=== PATIENT | female | born 1970 | race Hispanic/Latino ===

== ENCOUNTER 2019-09-13 10:45 | Inpatient (IN) | payer OTHER ==
[2019-09-13] MEDS ORDERED: ASPIRIN 325 MG TAB ONE (11:18)
[2019-09-13] MEDS ORDERED: ASPIRIN 81 MG TAB CHEW PO ONE (11:18)
--- NOTE | 2019-09-13 11:25 | Emergency Department Report ---
ED Chest Pain HPI - General Chief Complaint: Dyspnea/Respdistress Stated Complaint: SOB Time Seen by Provider: 09/13/19 11:18 Source: patient Mode of arrival: Ambulatory Limitations: No Limitations - History of Present Illness Initial Comments: Patient is 49 years old female with history of coronary artery disease, 9 stents before. Patient presented to the ER complaining of left-sided chest pain for the last 5 days. Patient described her chest pain as heaviness, recurrent, continue for 15 to 20 minutes and resolved. Patient stated the pain radiated to her left upper extremity. Patient stated that is typical when she had her previous heart attack. Patient also noticed significant shortness of breath for the last week. Patient stated that she is unable to lay flat. Patient denied any lower extremity swelling. Patient also denied any fever, chills, runny nose or cough. MD Complaint: chest pain -: days(s) (5) Onset: during rest, during exertion Pain Location: substernal, left chest Pain Radiation: LUE Severity: moderate Severity scale (0 -10): 5 Quality: heaviness - Related Data Home Medications Medication Instructions Recorded Confirmed Last Taken Aspirin 325 mg PO QDAY 09/13/19 09/13/19 09/13/19 Allergies Allergy/AdvReac Type Severity Reaction Status Date / Time No Known Allergies Allergy Verified 09/13/19 10:54 Heart Score - HEART Score History: Highly suspicious EKG: Significant ST-depression Age: 45-65 Risk factors: > 3 risk factors or hx of atherosclerotic disease Troponin: > 3x normal limit HEART Score: 9 ED Review of Systems ROS: Stated complaint: SOB Other details as noted in HPI Comment: All other systems reviewed and negative Constitutional: denies: chills, fever Respiratory: orthopnea, shortness of breath, SOB with exertion, SOB at rest. denies: cough, wheezing Cardiovascular: chest pain Gastrointestinal: denies: abdominal pain, nausea, vomiting, diarrhea, constipation, hematemesis, melena Musculoskeletal: denies: back pain Neurological: denies: headache, weakness, numbness, paresthesias, confusion, abnormal gait ED Past Medical Hx - Medications Home Medications: Home Medications Medication Instructions Recorded Confirmed Last Taken Type Aspirin 325 mg PO QDAY 09/13/19 09/13/19 09/13/19 History ED Physical Exam - General Limitations: No Limitations General appearance: alert, in no apparent distress - Head Head exam: Present: atraumatic, normocephalic, normal inspection - Eye Eye exam: Present: normal appearance, PERRL - ENT ENT exam: Present: normal exam, normal orophraynx, mucous membranes moist - Neck Neck exam: Present: normal inspection, full ROM. Absent: tenderness, meningis mus - Respiratory Respiratory exam: Present: normal lung sounds bilaterally - Cardiovascular Cardiovascular Exam: Present: regular rate, normal rhythm, normal heart sounds - GI/Abdominal GI/Abdominal exam: Present: soft, normal bowel sounds. Absent: distended, tenderness, guarding, rebound, rigid, organomegaly, mass, bruit, pulsatile mass, hernia - Extremities Exam Extremities exam: Present: normal inspection, full ROM, normal capillary refill. Absent: pedal edema, calf tenderness - Back Exam Back exam: Present: normal inspection, full ROM. Absent: CVA tenderness (R), CVA tenderness (L) - Neurological Exam Neurological exam: Present: alert, oriented X3, CN II-XII intact, normal gait, reflexes normal. Absent: motor sensory deficit - Psychiatric Psychiatric exam: Present: normal mood - Skin Skin exam: Present: warm, intact, normal color ED Course Vital Signs 09/13/19 09/13/19 09/13/19 10:57 11:19 11:30 Temperature 98.1 F Pulse Rate 97 H 101 H Respiratory 16 25 H 17 Rate Blood Pressure Blood Pressure 156/77 [Left] O2 Sat by Pulse 98 97 Oximetry 09/13/19 09/13/19 11:46 12:00 Temperature Pulse Rate 90 90 Respiratory 25 H 27 H Rate Blood Pressure 146/68 131/63 Blood Pressure [Left] O2 Sat by Pulse 95 93 Oximetry HEATHER score - Heather Score Age > 65: (0) No Aspirin use within the Past 7 Days: (1) Yes 3 or more CAD Risk Factors: (1) Yes 2 or more Angina events in past 24 hrs: (1) Yes Known CAD with more than 50% Stenosis: (1) Yes Elevated Cardiac Markers: (1) Yes ST Deviation Greater than 0.5mm: (1) Yes HEATHER Score: 6 ED Medical Decision Making - Lab Data Result diagrams: 09/13/19 11:40 09/13/19 11:40 - EKG Data -: EKG Interpreted by [facility] EKG shows normal: sinus rhythm Rate: normal - EKG Data Interpretation: nonspecific ST-T wave remi 09/13/19 11:[address] Lucas, he called back and stated that patient does not meet STEMI criteria. - Radiology Data Radiology results: report reviewed - Medical Decision Making Patient is 49 years old female with history of coronary artery disease, 9 stents before. Patient presented to the ER complaining of left-sided chest pain for the last 5 days. Patient described her chest pain as heaviness, recurrent, continue for 15 to 20 minutes and resolved. Patient stated the pain radiated to her left upper extremity. Patient stated that is typical when she had her previous heart attack. Patient also noticed significant shortness of breath for the last week. Patient stated that she is unable to lay flat. Patient denied any lower extremity swelling. Patient also denied any fever, chills, runny nose or cough. EKG showed significant ST depression in several leads. EKG sent to Dr. Lucas, street light wirer. He stated that patient does not need STEMI criteria and he advised patient to be admitted as acute coronary syndrome and to start heparin for further management. Critical Care Time: Yes Critical care time in (mins) excluding proc time.: 30 Critical care attestation.: If time is entered above; I have spent that time in minutes in the direct care of this critically ill patient, excluding procedure time. ED Disposition Clinical Impression: Chest pain, New onset of congestive heart failure, Non-STEMI (non-ST elevated myocardial infarction) Disposition: OP ADMIT IP TO THIS HOSP Is pt being admited?: Yes Condition: Stable Instructions: Angina (ED), Chest Pain (ED) Referrals: PRIMARY CARE,MD [Primary Care Provider] - 3-5 Days
[2019-09-13 11:51] LABS: Basophils % (Auto) 0.4 % (0.0-1.8); Eosinophils # (Auto) 0.1 K/mm3 (0.0-0.4); Eosinophils % (Auto) 0.7 % (0.0-4.3); Hematocrit 33.4 % (30.3-42.9); Hemoglobin 11.2 gm/dl (10.1-14.3); Lymphocytes # (Auto) 1.1 K/mm3 (1.2-5.4); Lymphocytes % (Auto) 15.1 % (13.4-35.0); Mean Corpuscular HGB Conc 33 % (30-34); Mean Corpuscular Volume 89 fl (79-97); Monocytes # (Auto) 0.4 K/mm3 (0.0-0.8); Monocytes % (Auto) 6.3 % (0.0-7.3); Platelet Count 373 K/mm3 (140-440); Red Blood Count 3.77 M/mm3 (3.65-5.03); Red Cell Distribution Width 15.6 % (13.2-15.2)
--- NOTE | 2019-09-13 11:51 | XRay Report ---
CHEST 1 VIEW INDICATION: Chest Pain. COMPARISON: None FINDINGS: Support devices: None. Heart: Within normal limits. Lungs/Pleura: Mild pulmonary venous congestion and trace pleural effusions are suspected. No evidence for pneumonia or pneumothorax. Additional findings: None. IMPRESSION: Mild pulmonary venous congestion and trace bilateral pleural effusions. Signer Name: Oziel Arciniega Jr, MD Signed: 09/13/2019 11:46 AM Workstation Name: [id number]
[2019-09-13] MEDS ORDERED: HEPARIN/ 0.45% NACL DRIP 25,000 UNIT/500 ML BAG IV SCH (12:00)
--- NOTE | 2019-09-13 12:36 | History and Physical Report ---
History of Present Illness Chief complaint: My chest hurts History of present illness: 49 YO Female with Obesity, HTN, NM, CAD S/P Stent Placement x9 presents to ED for evaluation. Patient states that she has experienced pain in her chest over the past 5 days with intermittently worsening symptoms over the same timeframe. Patient states that the pain episodes have become more frequent and more severe. Patient states that initially the symptoms were present for 1 to 3 minutes then resolved but over the ensuing 5 days the patient symptoms have worsened. Patient states that pain symptoms are currently 57/10, intermittent, lasting for 15 to 20 minutes, radiates to the left arm, crushing in nature, associated with shortness of breath, worsened with exertion, relieved minimally with rest. Patient acknowledges orthopnea/PND, decreased exercise tolerance. Patient transported to [facility] via private vehicle for further evaluation and care. Patient seen and evaluated in the emergency department. Lab and imaging strip studies reviewed. Pain was found to have elevated troponin and clinical symptoms consistent with non-ST elevation NM, stable angina, as well as symptoms consistent with exacerbation of congestive heart failure. Cardiology team consulted in ED. Patient admitted to telemetry and initiated on therapeutic anticoagulation. Patient is pending cardiac cath in a.m. as per cardiology team. No prior admission for review. No medication listed at time of admission for reconciliation. Patient denies fever, chills, productive cough, skin rash, rhinorrhea, sore throat, or recent ill contacts. Past History Past Medical History: acute NM, CAD, hypertension Past Surgical History: Other (Cardiac stent placement) Social history: , lives with family. denies: smoking, alcohol abuse, prescription drug abuse Family history: CAD, hypertension Medications and Allergies Allergies Allergy/AdvReac Type Severity Reaction Status Date / Time No Known Allergies Allergy Verified 09/13/19 10:54 Home Medications Medication Instructions Recorded Confirmed Last Taken Type Aspirin 325 mg PO QDAY 09/13/19 09/13/19 09/13/19 History Active Meds: Active Medications Heparin Sodium/Sodium Chloride (Heparin/ 0.45% Nacl-25,000 Unit/500 Ml) 25,000 unit in 500 mls @ 20 mls/hr IV TITRATE LUIS EDUARDO; Protocol Review of Systems Constitutional: no weight loss, no weight gain, no fever, no chills, no weakness, no malaise Ears, nose, mouth and throat: no ear pain, no ear discharge, no tinnitis, no decreased hearing, no nose pain Cardiovascular: chest pain, orthopnea, shortness of breath, dyspnea on exertion, decreased exercise tolerance, no palpitations, no rapid/irregular heart beat Respiratory: no cough, no cough with sputum, no excessive sputum, no hemoptysis, no shortness of breath Gastrointestinal: no nausea, no vomiting, no diarrhea, no constipation Genitourinary Female: no pelvic pain, no flank pain, no menorrhagia, no dysuria, no urinary frequency, no urgency Rectal: no pain, no incontinence, no bleeding Musculoskeletal: no neck stiffness, no neck pain, no shooting arm pain, no arm numbness/tingling, no low back pain Integumentary: no rash, no pruritis, no redness, no sores, no wounds Neurological: no transient paralysis, no paralysis, no weakness, no parathesias, no numbness, no tingling, no seizures Psychiatric: no change in sleep habits, no sleep disturbances, no insomnia, no hypersomnia, no change in appetite, no change in libido Endocrine: no cold intolerance, no heat intolerance, no polyphagia, no excessive thirst, no polydipsia Hematologic/Lymphatic: no easy bruising, no easy bleeding, no lymphadenopathy, no lymphedema Allergic/Immunologic: no urticaria, no allergic rhinitis, no wheezing, no persistent infections, no anaphylaxis Exam - Constitutional Vitals: Temp Pulse Resp BP Pulse Ox 98.1 F 90 27 H 131/63 93 09/13/19 10:57 09/13/19 12:00 09/13/19 12:00 09/13/19 12:00 09/13/19 12:00 General appearance: Present: mild distress, obese - EENT Eyes: Present: PERRL ENT: hearing intact, clear oral mucosa - Neck Neck: Present: supple, normal ROM - Respiratory Respiratory effort: normal Respiratory: bilateral: CTA - Cardiovascular Heart Sounds: Present: S1 & S2. Absent: rub, click - Extremities Extremities: pulses symmetrical Extremity abnormal: edema Peripheral Pulses: within normal limits - Abdominal General gastrointestinal: Present: soft, non-tender, non-distended, normal bowel sounds Female genitourinary: Present: normal - Integumentary Integumentary: Present: clear, warm, dry - Musculoskeletal Musculoskeletal: gait normal, strength equal bilaterally - Psychiatric Psychiatric: appropriate mood/affect, intact judgment & insight - Neurologic Neurologic: CNII-XII intact, moves all extremities Results - Labs CBC & Chem 7: 09/13/19 11:40 09/13/19 11:40 Labs: Abnormal lab results 09/13/19 Range/Units 11:40 RDW 15.6 H (13.2-15.2) % Lymph # 1.1 L (1.2-5.4) K/mm3 Seg Neutrophils % 77.5 H (40.0-70.0) % Assessment and Plan - Patient Problems (1) Non-STEMI (non-ST elevated myocardial infarction) Current Visit: Yes Status: Acute Plan to address problem: Type II non-ST elevation NM: Therapeutic anticoagulation, serial cardiac enzymes, EKG, admit to telemetry floor, cardiology consult placed in ED, pending cardiac cath in a.m. as per cardiology team. (2) CHF (congestive heart failure) Current Visit: Yes Status: Acute Qualifiers: Heart failure type: systolic Heart failure chronicity: acute Qualified Code(s): I50.21 - Acute systolic (congestive) heart failure Plan to address problem: Admit to telemetry, strict I/O, monitor urine output every shift, daily weight, diuresis, afterload reduction, submental oxygen, pulse oximetry, thyroid panel, BNP, chest x-ray, magnesium level. (3) HTN (hypertension) Current Visit: Yes Status: Acute Qualifiers: Hypertension type: essential hypertension Qualified Code(s): I10 - Essential (primary) hypertension Plan to address problem: Monitor blood pressure every shift, continue medical management (4) CAD (coronary artery disease) Current Visit: Yes Status: Acute Qualifiers: Associated angina: with stable angina Plan to address problem: Lipid panel, statin therapy, risk factor reduction therapy, balanced diet, low-fat/low-cholesterol diet, increase physical activity at discharge. (5) Obesity (BMI 30.0-34.9) Current Visit: Yes Status: Acute Plan to address problem: Balanced diet, increase physical activity at discharge. (6) DVT prophylaxis Current Visit: Yes Status: Acute Plan to address problem: SCD to bilateral lower extremities while in bed, continue therapeutic anticoagulation
[2019-09-13] MEDS ORDERED: ACETAMINOPHEN 325 MG TAB PO PRN (12:37)
[2019-09-13] MEDS ORDERED: ONDANSETRON 4 MG/2 ML INJ IV PRN (12:37)
[2019-09-13] MEDS ORDERED: NITROGLYCERIN 0.4 MG TAB SUBL SL PRN (12:37)
[2019-09-13 12:38] LABS: INR 1.06 (0.87-1.13)
[2019-09-13 12:39] LABS: Partial Thromboplastin Time 32.6 Sec. (24.2-36.6)
[2019-09-13 12:55] LABS: BUN/Creatinine Ratio 17; Blood Urea Nitrogen 10 mg/dL (7-17); Calcium 9.4 mg/dL (8.4-10.2); Hemolysis Index 101
[2019-09-13 12:58] LABS: Albumin 4.4 g/dL (3.9-5); Bilirubin,Direct 0.3 mg/dL (0-0.2)
[2019-09-13 13:17] LABS: Alanine Aminotransferase < 5 units/L (7-56)
[2019-09-13 14:23] LABS: Chol/HDL Ratio 8.63 %
[2019-09-13 14:31] LABS: Free T4 (Free Thyroxine) 1.14 ng/dL (0.76-1.46)
--- NOTE | 2019-09-13 17:20 | Consultation ---
History of Present Illness Consult date: 09/13/19 Consult reason: chest pain History of present illness: The patient is a 49-year-old woman with a history of multivessel coronary artery disease. She has stents in the proximal to mid LAD, mid circumflex, proximal and distal right coronary arteries. Her last interventional procedure was a plain old balloon angioplasty of the circumflex in 2014. At the time of this procedure her left ventricular ejection fraction was well-preserved at 60%. For the past 2 years, the patient stopped follow-up with her resp therapist, and stopped taking her medications. She states that it was because she lost her health insurance. In addition, she has continued to smoke cigarettes. Other comorbidities include chronic hypertension. She presents to the emergency room at this time with chest pain. Chest pain has been intermittent for several days, and reminiscent of her prior angina. EKG in the emergency room was sinus rhythm with ST depression in the lateral leads, suggestive of lateral ischemia. She was placed on intravenous heparin, and admitted to the hospital on suspicion of a non-ST elevation myocardial infarction. She is currently on the telemetry unit, and is chest pain-free on IV heparin. Past History Past Medical History: acute [place], CAD, COPD, hypertension Past Surgical History: PTCA, Other (Cardiac stent placement) Social history: , lives with family, smoking. denies: alcohol abuse, prescription drug abuse Family history: CAD, hypertension Medications and Allergies Allergies Allergy/AdvReac Type Severity Reaction Status Date / Time No Known Allergies Allergy Verified 09/13/19 10:54 Home Medications Medication Instructions Recorded Confirmed Last Taken Type Aspirin 325 mg PO QDAY 09/13/19 09/13/19 09/13/19 History Active Meds: Active Medications Acetaminophen (Tylenol) 650 mg PO Q4H PRN PRN Reason: Pain MILD(1-3)/Fever >100.5/SOL Aspirin (Aspirin) 325 mg PO QDAY [facility] Heparin Sodium/Sodium Chloride (Heparin/ 0.45% Nacl-25,000 Unit/500 Ml) 25,000 unit in 500 mls @ 20 mls/hr IV TITRATE LUIS EDUARDO; Protocol Last Admin: 09/13/19 12:42 Dose: 1,000 units/hr, 20 mls/hr Documented by: Nitroglycerin (Nitrostat) 0.4 mg SL Q5M PRN PRN Reason: Chest Pain Ondansetron HCl (Zofran) 4 mg IV Q8H PRN PRN Reason: Nausea And Vomiting Sodium Chloride (Sodium Chloride Flush Syringe 10 Ml) 10 ml IV BID LUIS EDUARDO Sodium Chloride (Sodium Chloride Flush Syringe 10 Ml) 10 ml IV PRN PRN PRN Reason: LINE FLUSH Sodium Chloride (Sodium Chloride Flush Syringe 10 Ml) 10 ml IV PRN PRN PRN Reason: LINE FLUSH Review of Systems Cardiovascular: chest pain, shortness of breath, no orthopnea, no palpitations, no rapid/irregular heart beat, no edema, no syncope, no lightheadedness Physical Examination Vital Signs Temp Pulse Resp BP Pulse Ox 98.1 F 97 H 16 156/77 98 09/13/19 10:57 09/13/19 10:57 09/13/19 10:57 09/13/19 10:57 09/13/19 10:57 General appearance: no acute distress HEENT: Positive: PERRL Neck: Positive: neck supple Cardiac: Positive: Reg Rate and Rhythm Lungs: Positive: Decreased Breath Sounds Neuro: Positive: Grossly Intact Abdomen: Positive: Soft Female genitourinary: deferred Skin: Positive: Clear Extremities: Absent: edema Results 09/13/19 11:40 09/13/19 11:40 Cardiac Enzymes 09/13/19 Range/Units 11:40 AST 138 H (5-40) units/L Coagulation 09/13/19 Range/Units 12:11 PT 13.9 (12.2-14.9) Sec. INR 1.06 (0.87-1.13) APTT 32.6 (24.2-36.6) Sec. Lipids 09/13/19 Range/Units 13:13 Triglycerides 111 (2-149) mg/dL Cholesterol 285 H (50-199) mg/dL HDL Cholesterol 33 L (40-59) mg/dL Cholesterol/HDL Ratio 8.63 % CBC 09/13/19 Range/Units 11:40 WBC 7.2 (4.5-11.0) K/mm3 RBC 3.77 (3.65-5.03) M/mm3 Hgb 11.2 (10.1-14.3) gm/dl Hct 33.4 (30.3-42.9) % Plt Count 373 (140-440) K/mm3 Lymph # 1.1 L (1.2-5.4) K/mm3 [place] # 0.4 (0.0-0.8) K/mm3 Eos # 0.1 (0.0-0.4) K/mm3 Baso # 0.0 (0.0-0.1) K/mm3 Comprehensive Metabolic Panel 09/13/19 09/13/19 Range/Units 11:40 11:40 Sodium 141 (137-145) mmol/L Potassium 4.7 (3.6-5.0) mmol/L Chloride 105.0 (98-107) mmol/L Carbon Dioxide 16 L (22-30) mmol/L BUN 10 (7-17) mg/dL Creatinine 0.6 L (0.7-1.2) mg/dL Glucose 100 (65-100) mg/dL Calcium 9.4 (8.4-10.2) mg/dL Direct Bilirubin 0.3 H (0-0.2) mg/dL Indirect Bilirubin 0.0 mg/dL AST 138 H (5-40) units/L ALT < 5 L (7-56) units/L Alkaline Phosphatase 96 (35-129) units/L Total Protein 8.5 H (6.3-8.2) g/dL Albumin 4.4 (3.9-5) g/dL EKG interpretations - Telemetry EKG Rhythm: Sinus Rhythm Assessment and Plan - Patient Problems (1) Non-STEMI (non-ST elevated myocardial infarction) Current Visit: Yes Status: Acute Plan to address problem: Patient with history of complex multivessel coronary artery disease, chronic tobacco abuse, noncompliant with medical therapy, presents with chest pain and ST depression in the lateral leads, consistent with acute coronary syndrome/non- ST elevation myocardial infarction. We will continue heparin, aspirin, beta-blockers and topical nitrates. We will pursue early invasive strategy with cardiac catheterization scheduled for tomorrow morning. Aggressive risk factor modification particularly smoking cessation has been strongly advised. The patient's AST on the liver profile is elevated at 138, we will therefore hold statin therapy until liver assessment has been completed by internal medicine or gastroenterology.
[2019-09-13] MEDS ORDERED: SODIUM CHLORIDE 0.9% 500 ML 500 ML IV SCH (18:00)
[2019-09-13] MEDS: NITROGLYCERIN 2% OINT 1 GM TP SCH (18:03)
[2019-09-13] MEDS: METOPROLOL TARTRATE 50 MG TAB PO SCH (21:54)
[2019-09-14] MEDS: oxyCODONE /ACETAMINOPHEN 5-325MG TAB PO PRN ×3 (01:40→17:50)
[2019-09-14 03:52] LABS: BUN/Creatinine Ratio 30; Blood Urea Nitrogen 15 mg/dL (7-17); Calcium 8.9 mg/dL (8.4-10.2); Hemolysis Index 5
[2019-09-14] MEDS ORDERED: hydrALAZINE 20 MG/1 ML INJ IV ONE (06:55)
[2019-09-14] MEDS ORDERED: SODIUM CHLORIDE 0.9% 500 ML 500 ML IV SCH (07:00)
[2019-09-14] MEDS: NITROGLYCERIN 2% OINT 1 GM TP SCH ×4 (07:18→18:49)
[2019-09-14] MEDS: METOPROLOL TARTRATE 50 MG TAB PO SCH ×2 (09:17→22:33)
[2019-09-14] MEDS: ASPIRIN 325 MG TAB PO SCH (09:17)
[2019-09-14] MEDS ORDERED: VERAPAMIL 5 MG/2 ML INJ ONE (09:24)
[2019-09-14] MEDS ORDERED: NITROGLYCERIN SYRINGE 3 ML ONE ×2 (09:24→11:15)
[2019-09-14] MEDS ORDERED: NICOTINE 14 MG/24 HR PATCH TD ONE (10:00)
[2019-09-14] MEDS: MIDAZOLAM 2 MG/2 ML INJ ONE ×2 (10:19→10:40)
[2019-09-14] MEDS: fentaNYL 100 MCG/2 ML INJ ONE ×2 (10:19→10:40)
[2019-09-14] MEDS: LIDOCAINE (2%) 20 MG/1 ML VIAL 20 ML MDV INFILTRATI ONE ×2 (10:19→10:42)
[2019-09-14] MEDS: SODIUM CHLORIDE 0.9% 500 ML 500 ML ONE ×2 (10:21→10:40)
[2019-09-14] MEDS: HEPARIN/NS 5000 UNIT/500ML 1,000 ML IR ONE ×2 (10:21→10:40)
[2019-09-14] MEDS ORDERED: FUROSEMIDE 40 MG/4 ML INJ ONE (10:52)
[2019-09-14] MEDS: HEPARIN 10,000 UNITS/10 ML VIAL ONE ×2 (10:58→11:26)
[2019-09-14] MEDS ORDERED: CLOPIDOGREL 300 MG TAB ONE (11:14)
[2019-09-14] MEDS ORDERED: ALUM-MAG HYDROXIDE-SIMETHICONE 200-200-20MG/5ML ORAL LIQD 30 ML ONE (11:14)
--- NOTE | 2019-09-14 11:52 | Event Note ---
Date: 09/14/19 Cardiac cath completed with successful PCI of circumflex in-stent restenosis. No complications. See dictated report for full details of coronary anatomy.
[2019-09-14] MEDS ORDERED: SODIUM CHLORIDE 0.9% 1000 ML 1,000 ML IV SCH (12:00)
[2019-09-14] MEDS ORDERED: FLU VACC QUAD 2019-20 (3 YR UP)/PF 60 MCG/0.5 ML SYRINGE IM ONE (12:00)
--- NOTE | 2019-09-14 12:08 | Cardiac Catherization Report ---
CARDIAC CATHETERIZATION AND CORONARY ANGIOPLASTY REASON FOR PROCEDURE: The patient is a 49-year-old woman with multivessel coronary stents. She admits to noncompliance with medical therapy for over 2 years, and continued chronic tobacco abuse. She presented to the hospital at this time with chest pain, ST depression in the lateral leads and elevated troponin, all consistent with a non-ST elevation myocardial infarction. Cardiac catheterization was recommended as part of an early invasive therapy. PROCEDURES: 1. Left heart catheterization. 2. Selective left and right coronary angiography. 3. Left ventricular angiography. 4. Coronary angioplasty and stenting of the circumflex artery. 5. Sedation time, start 10:40, end 11:20. DESCRIPTION OF PROCEDURE: The patient was prepped and draped in a sterile fashion after informed consent. Right femoral artery was entered using Seldinger technique followed by placement of a 6-Persian sheath. Selective left and right coronary angiography was performed using #4 right and left Annita catheters. The right Annita was used for left ventricular angiography. The angiograms were reviewed. CORONARY ANGIOGRAPHY: The left main coronary artery contained mild distal tapering. The left anterior descending artery contained mild luminal irregularities in its proximal segment. Following that, a stent was visible in the mid LAD. The mid LAD stent was patent with only mild in-stent restenosis. Otherwise, the rest of the left anterior descending and diagonal branches were free of significant disease. The circumflex artery was notable for a de lazara, 60-70% stenosis at its ostium. Following that, there was a long stented segment of the mid circumflex. There was an occlusive, in-stent restenosis of the mid segment of the stent, with up to 95-99% luminal stenosis. Following that, another, focal 90% stenosis was noted at the distal border of the stented segment. Overall distal flow down the circumflex was HEATHER grade 2. The right coronary artery was a relatively small caliber vessel, which also contained a long stent within its mid segment. The RCA stented segment contained diffuse moderate in-stent restenosis. The right coronary artery was dominant. The left ventricular systolic function was at the lower limits of normal with ejection fraction of 50-55%. There was hypokinesis noted of the anterior wall of the left ventricle. CORONARY ANGIOPLASTY: The circumflex in-stent restenosis was identified as the infarct related lesion. We proceeded with ad hoc coronary intervention to this vessel. We selected a #3.5 XB guiding catheter and advanced to the left coronary ostium. A 0.014-inch overnight stocker 50 guidewire was introduced into the circumflex, across the lesional segment. After wire placement, we then used a 3.0 mm balloon catheter and dilated the mid segment in-stent restenosis. Following dilatation, optimal flow was then achieved through the distal circumflex, but with a residual irregular stenosis within the stent. We then proceeded with treatment of the distal border restenosis. In this segment, we deployed a 2.5 x 8 mm drug-eluting stent in the primary stenting maneuver and inflated the stent to optimal pressures. The distal in-stent restenosis was successfully treated by this maneuver with an excellent angiographic result. We then turned our attention again to the mid in-stent segment, and deployed a 3.0 x 12 mm drug-eluting stent and inflated to optimal pressures. Following this, there was an excellent angiographic result through the treated segments of the mid stent restenosis and the distal border restenosis and HEATHER 3 flow down the distal circumflex. No intervention was performed to the 60-70% ostial stenosis of the circumflex, which was not occlusive and demonstrated normal flow. The catheters and the wires were then removed, sheath removed, and hemostasis achieved using manual compression. The patient was returned to the postprocedure unit in stable condition. There were no complications. CONCLUSION: 1. Multivessel coronary artery disease. 2. Patent stent in the mid left anterior descending artery. 3. Severe in-stent restenosis of the mid circumflex artery stent. 4. Moderate diffuse restenosis of the right coronary artery stent. 5. Left ventricular systolic function at the lower limits of normal, ejection fraction 50-55%. 6. Successful angioplasty and stenting of the circumflex in-stent restenosis, with additional 2.25 and 3.0 mm drug-eluting stents deployed. In addition to the interventional procedure and optimal medical therapy, the patient has been strongly recommended to pursue risk factor modification including smoking cessation. JOB# [id number] MEG/LIBBY
[2019-09-14] MEDS ORDERED: oxyCODONE /ACETAMINOPHEN 5-325MG TAB ONE (12:28)
[2019-09-14] MEDS: LISINOPRIL 5 MG TAB PO SCH (12:44)
[2019-09-14] MEDS ORDERED: hydrALAZINE 20 MG/1 ML INJ IV PRN (14:18)
[2019-09-14] MEDS ORDERED: hydrALAZINE 20 MG/1 ML INJ ONE (14:20)
[2019-09-14] MEDS ORDERED: MORPHINE 4 MG/1 ML INJ IM ONE (15:03)
[2019-09-14] MEDS ORDERED: NITROGLYCERIN 0.4 MG TAB SUBL SL PRN (15:08)
[2019-09-14] MEDS: MORPHINE 2 MG/1 ML INJ ONE (15:10)
[2019-09-14] MEDS ORDERED: SODIUM CHLORIDE 0.9% 1000 ML 1,000 ML ONE (15:13)
[2019-09-14] MEDS ORDERED: ONDANSETRON 4 MG/2 ML INJ ONE (15:13)
[2019-09-14] MEDS ORDERED: MORPHINE 2 MG/1 ML INJ IV ONE (15:30)
--- NOTE | 2019-09-14 16:50 | Progress Note ---
Assessment and Plan Assessment and plan: Patient is a 49 yo woman with a history of HTN, RI and CAD S/P Stent Placement who presents to [facility] ED with chest pains. She was found to have NSTEMI and underwent LHC on 09/14/2019 NSTEMI: Cardiac cath completed with successful PCI of circumflex in-stent restenosis. Acute Diastolic heart failure: Admitted to telemetry, strict I/O, monitor urine output every shift, daily weight, diuresis, afterload reduction, supplemental oxygen, pulse oximetry, thyroid panel, BNP, chest x-ray, magnesium level. HTN (hypertension): BBlockade, Monitor blood pressure every shift, continue medical management H/O CAD (coronary artery disease): Lipid panel, statin therapy, risk factor reduction therapy, balanced diet, low-fat/low-cholesterol diet, increase physical activity at discharge. Obesity (BMI 30.0-34.9): Balanced diet, increase physical activity at discharge. DVT prophylaxis: SCD to bilateral lower extremities while in bed, continue therapeutic anticoagulation 09/14/19: s/p LHC with PCI of circumflex in-stent restenosis. Hopefully home tomorrow once cleared by Cardiology History Interval history: Patient was seen and examined. Follow-up on current diagnosis of NSTEMI. Overnight uneventful as no events directly reported to me. Patient denies any chest pain, shortness breath, nausea/vomiting or severe headaches. Imaging, nursing note, chart, labs and old chart reviewed. Discussed with patient. Hospitalist Physical - Physical exam Narrative exam: Gen: WDWN, NAD, Awake, Alert, Orientated HEENT: NCAT, EOMI, PERRL, OP Clear Neck: supple, no adenopathy, no thyromegaly, no JVD CVS/Heart: RRR, normal S1S2, pulses present bilaterally Chest/Lungs: CTA B, Symmetrical chest expansion, good air entry bilaterally GI/Abdomen: soft, NTND, good bowel sounds, no guarding or rebound /Bladder: no suprapubic tenderness, no CVA or paraspinal tenderness Extermity/Skin: no c/c/e, no obvious rash MSK: FROM x 4 Neuro: CN 2-12 grossly intact, no new focal deficits Psych: calm - Constitutional Vitals: Temp Pulse Resp BP Pulse Ox 98.3 F 80 14 167/67 97 09/14/19 11:51 09/14/19 15:05 09/14/19 15:36 09/14/19 15:05 09/14/19 15:05 General appearance: Present: no acute distress HEATHER score - Heather Score Age > 65: (0) No Aspirin use within the Past 7 Days: (1) Yes 3 or more CAD Risk Factors: (1) Yes 2 or more Angina events in past 24 hrs: (1) Yes Known CAD with more than 50% Stenosis: (1) Yes Elevated Cardiac Markers: (1) Yes ST Deviation Greater than 0.5mm: (1) Yes HEATHER Score: 6 Results - Labs CBC & Chem 7: 09/13/19 11:40 09/14/19 03:17 Labs: Laboratory Last Values WBC 7.2 K/mm3 (4.5-11.0) 09/13/19 11:40 RBC 3.77 M/mm3 (3.65-5.03) 09/13/19 11:40 Hgb 11.2 gm/dl (10.1-14.3) 09/13/19 11:40 Hct 33.4 % (30.3-42.9) 09/13/19 11:40 MCV 89 fl (79-97) 09/13/19 11:40 MCH 30 pg (28-32) 09/13/19 11:40 MCHC 33 % (30-34) 09/13/19 11:40 RDW 15.6 % (13.2-15.2) H 09/13/19 11:40 Plt Count 373 K/mm3 (140-440) 09/13/19 11:40 Lymph % (Auto) 15.1 % (13.4-35.0) 09/13/19 11:40 [place] % (Auto) 6.3 % (0.0-7.3) 09/13/19 11:40 Eos % (Auto) 0.7 % (0.0-4.3) 09/13/19 11:40 Baso % (Auto) 0.4 % (0.0-1.8) 09/13/19 11:40 Lymph # 1.1 K/mm3 (1.2-5.4) L 09/13/19 11:40 Creek # 0.4 K/mm3 (0.0-0.8) 09/13/19 11:40 Eos # 0.1 K/mm3 (0.0-0.4) 09/13/19 11:40 Baso # 0.0 K/mm3 (0.0-0.1) 09/13/19 11:40 Seg Neutrophils % 77.5 % (40.0-70.0) H 09/13/19 11:40 Seg Neutrophils # 5.6 K/mm3 (1.8-7.7) 09/13/19 11:40 PT 13.9 Sec. (12.2-14.9) 09/13/19 12:11 INR 1.06 (0.87-1.13) 09/13/19 12:11 APTT 32.6 Sec. (24.2-36.6) 09/13/19 12:11 Activated Clotting Time 147 (74-137) H 09/14/19 14:09 Heparin Anti-Xa Level 0.24 U.I./ml (0.3-0.7) L 09/14/19 03:17 Sodium 138 mmol/L (137-145) 09/14/19 03:17 Potassium 4.4 mmol/L (3.6-5.0) 09/14/19 03:17 Chloride 107.3 mmol/L (98-107) H 09/14/19 03:17 Carbon Dioxide 21 mmol/L (22-30) L 09/14/19 03:17 Anion Gap 14 mmol/L 09/14/19 03:17 BUN 15 mg/dL (7-17) 09/14/19 03:17 Creatinine 0.5 mg/dL (0.7-1.2) L 09/14/19 03:17 Estimated GFR > 60 ml/min 09/14/19 03:17 BUN/Creatinine Ratio 30 % 09/14/19 03:17 Glucose 121 mg/dL (65-100) H 09/14/19 03:17 POC Glucose 115 (70-105) H 09/14/19 05:32 Calcium 8.9 mg/dL (8.4-10.2) 09/14/19 03:17 Magnesium 1.90 mg/dL (1.7-2.3) 09/13/19 13:13 Total Bilirubin 0.30 mg/dL (0.1-1.2) 09/13/19 11:40 Direct Bilirubin 0.3 mg/dL (0-0.2) H 09/13/19 11:40 Indirect Bilirubin 0.0 mg/dL 09/13/19 11:40 AST 138 units/L (5-40) H 09/13/19 11:40 ALT < 5 units/L (7-56) L 09/13/19 11:40 Alkaline Phosphatase 96 units/L (35-129) 09/13/19 11:40 Troponin T 0.669 ng/mL (0.00-0.029) H* D 09/13/19 19:47 NT-Pro-B Natriuret Pep 2805 pg/mL (0-900) H 09/13/19 11:40 Total Protein 8.5 g/dL (6.3-8.2) H 09/13/19 11:40 Albumin 4.4 g/dL (3.9-5) 09/13/19 11:40 Albumin/Globulin Ratio 1.1 % 09/13/19 11:40 Triglycerides 111 mg/dL (2-149) 09/13/19 13:13 Cholesterol 285 mg/dL (50-199) H 09/13/19 13:13 LDL Cholesterol Direct 231 mg/dL (50-130) H 09/13/19 13:13 HDL Cholesterol 33 mg/dL (40-59) L 09/13/19 13:13 Cholesterol/HDL Ratio 8.63 % 09/13/19 13:13 TSH 0.796 mlU/mL (0.270-4.200) 09/13/19 13:13 Free T4 1.14 ng/dL (0.76-1.46) 09/13/19 13:13 Hopkins/IV: Voiding Method Toilet IV Catheter Type [Right INT / Saline Lock Proximal Port Antecubital] Active Medications - Current Medications Current Medications: Generic Name Dose Route Start Last Admin Trade Name Freq PRN Reason Stop Dose Admin Acetaminophen 650 mg 09/13/19 12:37 09/13/19 20:21 Tylenol PO 650 mg Q4H PRN Administration Pain MILD(1-3)/Fever >100.5/SOL Aspirin 325 mg 09/14/19 10:00 09/14/19 09:17 Aspirin PO 325 mg QDAY LUIS EDUARDO Administration Clopidogrel Bisulfate 75 mg 09/15/19 10:00 Plavix PO QDAY PENDING SALE TO [facility] Furosemide 40 mg 09/14/19 12:00 Lasix IV QDAY LUIS EDUARDO Heparin Sodium (Porcine) 5,000 unit 09/14/19 22:00 Heparin SUB-Q Q12HR LUIS EDUARDO Hydralazine HCl 10 mg 09/14/19 14:18 09/14/19 14:30 Apresoline IV 10 mg Q4HR PRN Administration Blood Pressure Sodium Chloride 500 mls @ 50 mls/hr 09/14/19 07:00 09/14/19 06:21 Nacl 0.9% 500 Ml IV 09/14/19 16:59 50 mls/hr DIRECT LUIS EDUARDO Administration Sodium Chloride 1,000 mls @ 100 mls/hr 09/14/19 12:00 Nacl 0.9% 1000 Ml IV 09/14/19 21:59 DIRECT LUIS EDUARDO Lisinopril 5 mg 09/14/19 12:00 09/14/19 12:44 Zestril PO 5 mg QDAY PENDING SALE TO [facility] Administration Metoprolol Tartrate 50 mg 09/13/19 22:00 09/14/19 09:17 Metoprolol PO 50 mg BID LUIS EDUARDO Administration Nitroglycerin 1 inch 09/13/19 18:00 09/14/19 14:35 Nitro-Bid 2% TP Not Given QIDNTG PENDING SALE TO [facility] Protocol Nitroglycerin 0.4 mg 09/14/19 15:08 Nitrostat SL .Q5MIN PRN Chest Pain Ondansetron HCl 4 mg 09/13/19 12:37 09/14/19 15:20 Zofran IV 4 mg Q8H PRN Administration Nausea And Vomiting Oxycodone/Acetaminophen 1 tab 09/13/19 21:44 09/14/19 12:28 Percocet 5/325 PO 1 tab Q4H PRN Administration Pain, Moderate (4-6) Potassium Chloride 20 meq 09/15/19 10:00 K-Dur PO QDAY LUIS EDUARDO Sodium Chloride 10 ml 09/13/19 22:00 09/14/19 09:00 Sodium Chloride Flush Syringe 10 Ml IV 10 ml BID LUIS EDUARDO Administration Sodium Chloride 10 ml 09/13/19 12:37 Sodium Chloride Flush Syringe 10 Ml IV PRN PRN LINE FLUSH Nutrition/Malnutrition Assess - Dietary Evaluation Nutrition/Malnutrition Findings: Nutrition Notes Start: 09/14/19 10:34 Freq: Status: Active Protocol: Document 09/14/19 10:34 LM (Rec: 09/14/19 10:37 LM [id number]) Nutrition Notes 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 Nutrition Intervention Follow-Up By: 09/15/19 Additional Comments F/U for assessment
[2019-09-14] MEDS: FUROSEMIDE 40 MG/4 ML INJ IV SCH (17:00)
[2019-09-14] MEDS: HEPARIN 5,000 UNIT/1 ML VIAL SUB-Q SCH (22:34)
[2019-09-15 05:45] LABS: Basophils % (Auto) 0.4 % (0.0-1.8); Eosinophils # (Auto) 0.1 K/mm3 (0.0-0.4); Eosinophils % (Auto) 0.7 % (0.0-4.3); Hematocrit 32.4 % (30.3-42.9); Hemoglobin 10.7 gm/dl (10.1-14.3); Lymphocytes # (Auto) 1.2 K/mm3 (1.2-5.4); Lymphocytes % (Auto) 14.5 % (13.4-35.0); Mean Corpuscular HGB Conc 33 % (30-34); Mean Corpuscular Volume 88 fl (79-97); Monocytes # (Auto) 0.6 K/mm3 (0.0-0.8); Monocytes % (Auto) 7.7 % (0.0-7.3); Platelet Count 318 K/mm3 (140-440); Red Cell Distribution Width 15.1 % (13.2-15.2)
[2019-09-15] MEDS: NITROGLYCERIN 2% OINT 1 GM TP SCH ×2 (06:19→10:10)
[2019-09-15 06:43] LABS: Creatine Kinase MB 15.6 ng/mL (0.0-4.0)
[2019-09-15 06:45] LABS: BUN/Creatinine Ratio 23; Blood Urea Nitrogen 18 mg/dL (7-17); Calcium 8.8 mg/dL (8.4-10.2); Hemolysis Index 1
[2019-09-15] MEDS: MORPHINE 2 MG/1 ML INJ ONE (07:34)
--- NOTE | 2019-09-15 08:44 | XRay Report ---
CHEST 1 VIEW INDICATION: post pci. COMPARISON: 09/13/2019 FINDINGS: Support devices: None. Heart: Within normal limits. Pulmonary vasculature: Mild central vascular congestion. The vessels are more distinct than on the la st exam. Lungs/Pleura: Mildly prominent bibasal reticular opacities which are unchanged compared to the last e xam. No pleural effusion. Additional findings: None. IMPRESSION: 1. Interval improvement. 2. Probably chronic bibasal interstitial changes. 3. No pulmonary edema. Signer Name: Joss Merlos MD Signed: 09/15/2019 8:40 AM Workstation Name: [id number]
[2019-09-15] MEDS ORDERED: POTASSIUM CHLORIDE ER 20 MEQ TAB PO SCH (10:00)
[2019-09-15] MEDS ORDERED: CLOPIDOGREL 75 MG TAB PO SCH (10:00)
[2019-09-15] MEDS: HEPARIN 5,000 UNIT/1 ML VIAL SUB-Q SCH (10:10)
[2019-09-15] MEDS: ASPIRIN 325 MG TAB PO SCH (10:10)
[2019-09-15] MEDS: METOPROLOL TARTRATE 50 MG TAB PO SCH (10:10)
[2019-09-15] MEDS: LISINOPRIL 5 MG TAB PO SCH (10:10)
[2019-09-15] MEDS: FUROSEMIDE 40 MG/4 ML INJ IV SCH (10:10)
--- NOTE | 2019-09-15 10:53 | Progress Note ---
Assessment and Plan - Patient Problems (1) Non-STEMI (non-ST elevated myocardial infarction) Current Visit: Yes Status: Acute Plan to address problem: Patient admitted with non-ST elevation myocardial infarction. Status post cardiac cath with PCI of the circumflex in-stent restenosis, additional implantation of DE stents. She is asymptomatic today, looks and feels well, R groin cath site well healed. Stable for discharge today on GDMT as currently outlined including ASA/Plavix, betablockers, Imdur and lisinopril. Follow up with Dr Navarro in 1-2 weeks. Aggressive risk factor modification particularly smoking cessation has been strongly advised. The patient's AST on the liver profile is elevated at 138, we will therefore hold statin therapy until liver assessment has been completed by internal medicine or gastroenterology. Subjective Date of service: 09/15/19 Principal diagnosis: NSTEMI Objective Vital Signs Temp Pulse Resp BP Pulse Ox 09/15/19 08:36 97 09/15/19 08:24 77 16 136/67 92 09/15/19 06:19 69 123/57 09/15/19 04:57 98.8 F 69 18 123/57 94 09/15/19 04:27 95 09/14/19 23:33 99.3 F 74 18 118/56 99 09/14/19 22:33 77 136/64 09/14/19 20:23 99.3 F 77 18 136/64 93 09/14/19 20:12 71 09/14/19 18:50 16 09/14/19 17:50 16 09/14/19 16:00 98.8 F 62 8 L 132/50 97 09/14/19 15:36 14 09/14/19 15:10 16 09/14/19 15:05 80 20 167/67 97 09/14/19 14:30 72 161/76 09/14/19 14:00 65 17 161/62 95 09/14/19 13:30 74 17 171/78 95 09/14/19 13:03 18 09/14/19 13:00 70 18 184/76 100 09/14/19 12:45 60 19 159/77 96 09/14/19 12:44 59 L 181/83 09/14/19 12:30 71 20 181/83 97 09/14/19 12:28 16 09/14/19 12:15 76 16 124/61 98 09/14/19 12:00 67 17 105/58 93 09/14/19 11:51 98.3 F 62 18 102/55 92 - Physical Examination General: No Apparent Distress HEENT: Positive: PERRL Neck: Positive: neck supple Cardiac: Positive: Reg Rate and Rhythm Lungs: Positive: Decreased Breath Sounds Neuro: Positive: Grossly Intact Abdomen: Positive: Soft Skin: Positive: Clear Extremities: Absent: edema - Labs and Meds Cardiac Enzymes 09/15/19 Range/Units 04:49 CK-MB (CK-2) 15.6 H (0.0-4.0) ng/mL CBC 09/15/19 Range/Units 04:49 WBC 8.4 (4.5-11.0) K/mm3 RBC 3.70 (3.65-5.03) M/mm3 Hgb 10.7 (10.1-14.3) gm/dl Hct 32.4 (30.3-42.9) % Plt Count 318 (140-440) K/mm3 Lymph # 1.2 (1.2-5.4) K/mm3 [place] # 0.6 (0.0-0.8) K/mm3 Eos # 0.1 (0.0-0.4) K/mm3 Baso # 0.0 (0.0-0.1) K/mm3 Comprehensive Metabolic Panel 09/15/19 Range/Units 04:49 Sodium 138 (137-145) mmol/L Potassium 3.7 (3.6-5.0) mmol/L Chloride 103.6 (98-107) mmol/L Carbon Dioxide 21 L (22-30) mmol/L BUN 18 H (7-17) mg/dL Creatinine 0.8 D (0.7-1.2) mg/dL Glucose 99 (65-100) mg/dL Calcium 8.8 (8.4-10.2) mg/dL
[2019-09-15 12:24] VITALS: BP 106/51
--- NOTE | 2019-09-15 14:38 | Discharge Summary ---
Providers - Providers Date of Admission: 09/13/19 12:37 Date of discharge: 09/15/19 Attending physician: MEGAN PORTILLO 09/13/19 Consult to Cardiac Rehabilitation [CONS] Routine Reason For Exam: Phase I 09/13/19 11:34 Consult to Physician [CONS] Stat Comment: paged overhead/ monisha Consulting Provider: NNAMDI FOWLER Physician Instructions: Reason For Exam: chest pain 09/13/19 12:38 Consult to Cardiology [CONS] Routine Consulting Provider: NNAMDI FOWLER Reason For Exam: Angina/NSTEMI 09/14/19 Consult to Cardiac Rehabilitation [CONS] Routine Reason For Exam: post pci Primary care physician: ELECTION JUDGE Hospitalization Condition: Stable Hospital course: Patient is a 49 yo woman with a history of HTN, AR and CAD S/P Stent Placement who presents to [facility] ED with chest pains. She was found to have NSTEMI and underwent LHC on 09/14/2019 Discharge Diagnoses: s/p PCI of circumfex with ROSCOE NSTEMI: Cardiac cath completed with successful PCI of circumflex in-stent restenosis. statin on hold due to isolated elevated AST Acute Diastolic heart failure: Admitted to telemetry, strict I/O, monitor urine output every shift, daily weight, diuresis, afterload reduction, supplemental oxygen, pulse oximetry, thyroid panel, BNP, chest x-ray, magnesium level. HTN (hypertension): BBlockade, Monitor blood pressure every shift, continue medical management H/O CAD (coronary artery disease): Lipid panel, statin therapy, risk factor reduction therapy, balanced diet, low-fat/low-cholesterol diet, increase physical activity at discharge. Obesity (BMI 30.0-34.9): Balanced diet, increase physical activity at discharge. DVT prophylaxis: SCD to bilateral lower extremities while in bed, continue t herapeutic anticoagulation Isolated elevated AST: outpatient GI referral Patient admitted with non-ST elevation myocardial infarction. Status post cardiac cath with PCI of the circumflex in-stent restenosis, additional implantation of DE stents. She is asymptomatic today, looks and feels well, R groin cath site well healed. Stable for discharge today on GDMT as currently outlined including ASA/Plavix, betablockers, Imdur and lisinopril. Follow up with Dr Navarro in 1-2 weeks. Aggressive risk factor modification particularly smoking cessation has been strongly advised. The patient's AST on the liver profile is elevated at 138, we will therefore hold statin therapy until liver assessment has been completed by internal medicine or gastroenterology. Disposition: DC-01 TO HOME OR SELFCARE Time spent for discharge: 34 minutes Core Measure Documentation - Palliative Care Palliative Care/ Comfort Measures: Not Applicable - Core Measures Any of the following diagnoses?: acute AR - VTE Discharge Requirements Deep Vein Thrombosis/Pulmonary Embolism Present on Admission: No Has pt received <5 days of overlap therapy or INR<2.0: No Anticoagulant overlap therapy prescribed at discharge: No Contraindication No Overlap Therapy order at DC: Not Indicated - Acute AR Discharge Requirements Aspirin at discharge: Yes SHEBA/ARB for LVSD if EF <40%: Yes Beta greyson at discharge: Yes Statin for LDL = or >100 mg/dl on DC: No Reason for no statin on DC: Statins contraindicated (Liver dysfunction AST >3 times normal) Exam - Physical Exam Narrative exam: Gen: WDWN, NAD, Awake, Alert, Orientated x 3 HEENT: NCAT, EOMI, PERRL, OP Clear Neck: supple, no adenopathy, no thyromegaly, no JVD CVS/Heart: RRR, normal S1S2, pulses present bilaterally Chest/Lungs: CTA B, Symmetrical chest expansion, good air entry bilaterally GI/Abdomen: soft, NTND, good bowel sounds, no guarding or rebound /Bladder: no suprapubic tenderness, no CVA or paraspinal tenderness Extermity/Skin: no c/c/e, no obvious rash MSK: FROM x 4 Neuro: CN 2-12 grossly intact, no new focal deficits Psych: calm - Constitutional Vitals: Temp Pulse Resp BP Pulse Ox 98.1 F 62 18 106/51 95 09/15/19 12:20 09/15/19 12:20 09/15/19 12:20 09/15/19 12:20 09/15/19 12:20 Plan Activity: other (no strenous activity until cleared by Cardiology including work) Diet: low salt Additional Instructions: See Dr. Garnica to repeat Liver function test, mildly isolated AST elevation Follow up with: PRIMARY MD ERIKA [Primary Care Provider] - 3-5 Days NNAMDI FOWLER MD [Staff Physician] - 7 Days BOBO GARNICA MD [Staff Physician] - 7 Days Prescriptions: Aspirin 325 mg PO QDAY #30 tab ISOSORBIDE MONOnitrate [Imdur ER] 30 mg PO QDAY #30 tablet Potassium Chloride [K-Dur] 20 meq PO QDAY #15 tablet Metoprolol [Lopressor TAB] 50 mg PO BID #60 tablet Nitroglycerin [Nitrostat] 0.4 mg SL .Q5MIN PRN #15 tablet PRN Reason: Chest Pain oxyCODONE /ACETAMINOPHEN [Percocet 5/325 mg] 1 tab PO Q4H PRN #15 tablet PRN Reason: Pain, Moderate (4-6) Clopidogrel [Plavix] 75 mg PO QDAY #30 tablet lisinopriL [Zestril TAB] 5 mg PO QDAY #30 tablet
== END 2019-09-15 16:51 | disposition home or self-care (01) | DRG 246 ==
LOC: ED 10:45 → 4A 12:37
PROVIDERS: ADMIT Internal Medicine; ATTEND Internal Medicine
PROC: 4A023N7 Measurement of Cardiac Sampling and Pressure, Left Heart, Percutaneous Approach (ICD-10-PCS; principal; 2019-09-14)
PROC: 027034Z Dilation of Coronary Artery, One Artery with Drug-eluting Intraluminal Device, Percutaneous Approach (ICD-10-PCS; 2019-09-14)
PROC: B2111ZZ Fluoroscopy of Multiple Coronary Arteries using Low Osmolar Contrast (ICD-10-PCS; 2019-09-14)
PROC: B2151ZZ Fluoroscopy of Left Heart using Low Osmolar Contrast (ICD-10-PCS; 2019-09-14)
DX: T82.855A Stenosis of coronary artery stent, initial encounter (principal); I50.41 Acute combined systolic (congestive) and diastolic (congestive) heart failure; I21.A1 Myocardial infarction type 2; I24.9 Acute ischemic heart disease, unspecified; Y83.9 Surgical procedure, unspecified as the cause of abnormal reaction of the patient, or of later complication, without mention of misadventure at the time of the procedure; I11.0 Hypertensive heart disease with heart failure; F17.210 Nicotine dependence, cigarettes, uncomplicated; I25.118 Atherosclerotic heart disease of native coronary artery with other forms of angina pectoris; E66.9 Obesity, unspecified; J44.9 Chronic obstructive pulmonary disease, unspecified; Y92.89 Other specified places as the place of occurrence of the external cause; Z71.6 Tobacco abuse counseling; Z95.1 Presence of aortocoronary bypass graft; Z82.49 Family history of ischemic heart disease and other diseases of the circulatory system; Z79.82 Long term (current) use of aspirin; Z68.31 Body mass index [BMI] 31.0-31.9, adult; Z91.14 Patient's other noncompliance with medication regimen; Z71.3 Dietary counseling and surveillance; I25.2 Old myocardial infarction
CPT/HCPCS: 36415; 71045; 80048; 80061; 80076; 82550; 82553; 82962; 83735; 83880; 84439; 84443; 84484; 85014; 85018; 85025; 85347; 85520; 85610; 85730; 90686; 92928; 93005; 93010; 93458; 94760; 96374; 96375; 99406; G0378; C1725; C1769; C1874; C1887; C1894; C9600; J0360; J1644; J1940; J2250; J2270; J2405; J3010; J7030; J7040; Q9967

== ENCOUNTER 2019-11-05 07:42 | Day surgery (SDC) | payer BC, OTHER ==
[2019-11-05] MEDS ORDERED: ASPIRIN EC 325 MG TAB PO ONE (08:13)
[2019-11-05 08:50] LABS: Basophils # (Auto) 0.1 K/mm3 (0.0-0.1); Basophils % (Auto) 1.4 % (0.0-1.8); Eosinophils # (Auto) 0.2 K/mm3 (0.0-0.4); Eosinophils % (Auto) 2.9 % (0.0-4.3); Hematocrit 30.6 % (30.3-42.9); Lymphocytes # (Auto) 1.3 K/mm3 (1.2-5.4); Lymphocytes % (Auto) 21.4 % (13.4-35.0); Mean Corpuscular HGB Conc 33 % (30-34); Mean Corpuscular Volume 80 fl (79-97); Monocytes # (Auto) 0.3 K/mm3 (0.0-0.8); Monocytes % (Auto) 5.2 % (0.0-7.3); Platelet Count 270 K/mm3 (140-440); Red Blood Count 3.81 M/mm3 (3.65-5.03); Red Cell Distribution Width 15.1 % (13.2-15.2)
[2019-11-05] MEDS ORDERED: SODIUM CHLORIDE 0.9% 500 ML 500 ML IV SCH (09:00)
[2019-11-05 09:01] LABS: INR 1.05 (0.87-1.13)
[2019-11-05 09:28] LABS: BUN/Creatinine Ratio 30; Blood Urea Nitrogen 24 mg/dL (7-17); Calcium 9.3 mg/dL (8.4-10.2); Hemolysis Index 1
[2019-11-05] MEDS ORDERED: HEPARIN/NS 5000 UNIT/500ML 1,000 ML IR ONE (09:34)
[2019-11-05] MEDS ORDERED: LIDOCAINE (2%) 20 MG/1 ML VIAL 20 ML MDV INFILTRATI ONE (09:34)
[2019-11-05] MEDS ORDERED: NITROGLYCERIN SYRINGE 3 ML ONE (09:34)
[2019-11-05] MEDS ORDERED: CLOPIDOGREL 75 MG TAB PO SCH (10:00)
[2019-11-05] MEDS: MIDAZOLAM 2 MG/2 ML INJ ONE ×2 (10:00→10:06)
[2019-11-05] MEDS: fentaNYL 100 MCG/2 ML INJ ONE ×2 (10:00→10:06)
[2019-11-05] MEDS ORDERED: hydrALAZINE 20 MG/1 ML INJ ONE (10:12)
[2019-11-05] MEDS: HEPARIN 10,000 UNITS/10 ML VIAL ONE ×3 (10:22→10:52)
[2019-11-05] MEDS ORDERED: fentaNYL 250 MCG/5 ML INJ ONE (10:29)
[2019-11-05] MEDS ORDERED: fentaNYL 100 MCG/2 ML INJ ONE (10:30)
[2019-11-05] MEDS ORDERED: ADENOSINE 60 MG/20 ML VIAL ONE ×2 (10:30→10:35)
[2019-11-05] MEDS: NITROGLYCERIN 0.4 MG TAB SUBL SL ONE ×2 (10:31→10:54)
[2019-11-05] MEDS ORDERED: SODIUM CHLORIDE 0.9% 0 ML ONE (10:31)
--- NOTE | 2019-11-05 11:43 | Short Stay Summary ---
Short Stay Documentation Date of service: 11/05/19 - History H&P: obtained from office - Allergies and Medications Current Medications: Allergies No Known Allergies Allergy (Verified 09/13/19 10:54) Home Medications Medication Instructions Recorded Confirmed Last Taken Type Acetaminophen [Acetaminophen TAB] 325 mg PO Q4H PRN #15 tablet 09/15/19 11/05/19 Unknown Rx Aspirin [Adult Aspirin] 81 mg PO QDAY #30 tablet. 09/15/19 11/05/19 11/04/19 Rx 81 mg Clopidogrel [Plavix] 75 mg PO QDAY #30 tablet 09/15/19 11/05/19 11/04/19 Rx 75 mg Nitroglycerin [Nitrostat] 0.4 mg SL .Q5MIN PRN #15 tablet 09/15/19 11/05/19 11/03/19 Rx 0.4mg Potassium Chloride [K-Dur] 20 meq PO QDAY #15 tablet 09/15/19 11/05/19 11/04/19 Rx 20 meq ISOSORBIDE MONOnitrate [Imdur ER] 120 mg PO QDAY 11/05/19 11/05/19 11/04/19 History 120 mg Metoprolol [Lopressor TAB] 50 mg PO TID 11/05/19 11/05/19 11/04/19 History 50 mg lisinopriL [Zestril TAB] 20 mg PO QDAY 11/05/19 11/05/19 11/04/19 History Active Medications Clopidogrel Bisulfate (Plavix) 75 mg PO QDAY [facility] Last Admin: 11/05/19 09:13 Dose: 75 mg Documented by: Sodium Chloride (Nacl 0.9% 500 Ml) 500 mls @ 50 mls/hr IV DIRECT LUIS EDUARDO Stop: 11/05/19 18:59 Last Admin: 11/05/19 09:00 Dose: 50 mls/hr Documented by: - Brief post op/procedure progress note Date of procedure: 11/05/19 Pre-op diagnosis: usa Post-op diagnosis: same Procedure: see report Anesthesia: local Estimated blood loss: none Pathology: none - Disposition Condition at discharge: Fair Disposition: DC/TX-70 ANOTHER TYPE HLTHCARE - Discharge Diagnoses (1) PAD (peripheral artery disease) Status: Acute (2) Hypertension Status: Chronic Qualifiers: Hypertension type: essential hypertension Qualified Code(s): I10 - Essential (primary) hypertension (3) Hyperlipemia, mixed Status: Chronic (4) CAD (coronary artery disease) Status: Chronic Qualifiers: Coronary Disease-Associated Artery/Lesion type: [place] artery Associated angina: with unstable angina (5) Obesity (BMI 30.0-34.9) Status: Chronic Short Stay Discharge Plan Activity: advance as tolerated Diet: low fat, low cholesterol Wound: keep clean and dry Follow up with: FRANCOISE BUTLER MD [Primary Care Provider] - 7 Days
--- NOTE | 2019-11-05 12:30 | Cardiac Catherization Report ---
LEFT HEART CATHETERIZATION/FRACTIONAL FLOW RESERVE REPORT ORDERING PHYSICIAN: Dr. Guardado. CLINICAL INFORMATION: This is a 49-year-old female with hypertension, cholesterol, smoker, a family history of premature coronary arterial disease, familial hyperlipidemia, had first MT at age 36, was in the hospital 2 months ago for unstable angina, had PCI of the circumflex, is on aspirin and Plavix, here for recurrent chest pain with minimal exertion despite being on max dose beta greyson and nitrates. So, procedure was performed via the right common femoral artery, sterile technique, local anesthesia, 5-Ukrainian groin sheath inserted. The patient was done with moderate sedation, started at 10:00 a.m. and finished at 10:52, 52 minutes of moderate sedation. Left system with JL4 catheter. Left main is large and patent. Some distal left main disease around 30%. Then, LAD ostial has around 90%, mid stent is patent. Rest of the LAD is patent, large caliber vessel. Diagonal 1, diagonal 2 small caliber vessel, patent. Circumflex is a large vessel, ostial 90%; proximal, mid stents are patent. OM1 ostial has a 90% lesion. OM2 and OM3 are patent. RCA engaged with a 3RDC catheter, a dominant vessel, proximal stent has diffuse in-stent restenosis around 70%, distal is patent. PDA, PLV are small to medium caliber vessel, patent. LV gram done in CROATIAN and VERGARA view shows normal LV function, LVEDP at 30-35 mmHg, LV is 164/37, aortic is 169/66. No gradient across the aortic valve on pullback. So, in view of confirmation of the significance of LAD disease, so changed to 5-Ukrainian distal fractional flow reserve of the LAD, changed out the 5-Ukrainian groin sheath to a 6-Ukrainian groin sheath, engaged the left system with JL4 catheter. Equalization of the vessel across the wire into the LAD, multiple IFRs show 0.58 and 0.6, removed the IFR wire. Repeat angiogram, continued HEATHER 3 flow, same. No dissection or perforation. LAD ostial 90% and circumflex ostial 90%. A catheter was taken over a guidewire, 6-Ukrainian groin sheath sewn in. No hematoma, no bleeding. SUMMARY: Left main distal 20-30%, LAD ostial 90%, mid stent patent, distal patent, large caliber, small diagonal, circumflex ostial 90%, proximal and mid stent patent. OM1 ostial 90%. OM2 and 3 are patent. RCA proximal, mid stent has in-stent restenosis 80%, distal patent. PDA, PLV patent, normal LV function. The patient will be placed on IV nitro and was having chest pain. The patient will be transferred to [place] for bypass surgery. Hold Plavix. Discussed this with the patient and the patient's daughter in detail. JOB# [id number] ANATOLY/NTS
[2019-11-05] MEDS ORDERED: hydrALAZINE 20 MG/1 ML INJ IV ONE (13:24)
[2019-11-05] MEDS ORDERED: NITROGLYCERIN 0.4 MG TAB SUBL SL ONE ×2 (13:24→13:26)
[2019-11-05] MEDS ORDERED: ONDANSETRON 4 MG/2 ML INJ IV ONE (13:50)
[2019-11-05] MEDS ORDERED: cloNIDine 0.1 MG TAB ONE (14:08)
[2019-11-05] MEDS ORDERED: cloNIDine 0.1 MG TAB PO ONE (14:09)
[2019-11-05] MEDS ORDERED: MORPHINE 2 MG/1 ML INJ IV ONE (15:00)
[2019-11-05] MEDS ORDERED: NITROGLYCERIN DRIP 50 MG/250 ML BOTTLE IV SCH (15:00)
[2019-11-05 17:57] VITALS: BP 144/52
== END 2019-11-05 07:43 | disposition home or self-care (01) ==
LOC: CATHLABREC 07:42
PROVIDERS: ATTEND Internal Medicine
DX: R07.89 Other chest pain (principal); I11.0 Hypertensive heart disease with heart failure; I50.9 Heart failure, unspecified; I25.2 Old myocardial infarction; I25.110 Atherosclerotic heart disease of native coronary artery with unstable angina pectoris; F17.210 Nicotine dependence, cigarettes, uncomplicated; E66.9 Obesity, unspecified; E11.51 Type 2 diabetes mellitus with diabetic peripheral angiopathy without gangrene; E78.5 Hyperlipidemia, unspecified; J45.909 Unspecified asthma, uncomplicated; Z98.890 Other specified postprocedural states; Z86.718 Personal history of other venous thrombosis and embolism; Z68.31 Body mass index [BMI] 31.0-31.9, adult; Z79.899 Other long term (current) drug therapy; Z79.82 Long term (current) use of aspirin; Z95.5 Presence of coronary angioplasty implant and graft; Z90.49 Acquired absence of other specified parts of digestive tract; Z82.49 Family history of ischemic heart disease and other diseases of the circulatory system
CPT/HCPCS: 36415; 80048; 85025; 85347; 85610; 85730; 93005; 93458; 93571; 99156; 99157; C1769; C1887; C1894; J0360; J1644; J2250; J2270; J2405; J3010; J7040; J0153; Q9967

== ENCOUNTER 2019-11-16 00:21 | Emergency (ER) | payer BC ==
[2019-11-16 01:22] LABS: Basophils # (Auto) 0.1 K/mm3 (0.0-0.1); Basophils % (Auto) 0.8 % (0.0-1.8); Eosinophils # (Auto) 0.3 K/mm3 (0.0-0.4); Eosinophils % (Auto) 3.8 % (0.0-4.3); Hematocrit 29.8 % (30.3-42.9); Hemoglobin 9.7 gm/dl (10.1-14.3); Lymphocytes # (Auto) 1.2 K/mm3 (1.2-5.4); Lymphocytes % (Auto) 13.8 % (13.4-35.0); Mean Corpuscular HGB Conc 33 % (30-34); Mean Corpuscular Volume 85 fl (79-97); Monocytes # (Auto) 0.8 K/mm3 (0.0-0.8); Monocytes % (Auto) 9.5 % (0.0-7.3); Platelet Count 480 K/mm3 (140-440); Red Blood Count 3.53 M/mm3 (3.65-5.03); Red Cell Distribution Width 17.2 % (13.2-15.2)
[2019-11-16 01:42] LABS: BUN/Creatinine Ratio 20; Blood Urea Nitrogen 18 mg/dL (7-17); Calcium 9.1 mg/dL (8.4-10.2); Hemolysis Index 2
[2019-11-16 03:55] LABS: Chol/HDL Ratio 5.72 %; HDL Cholesterol 25 mg/dL (40-59); LDL Cholesterol,Direct 87 mg/dL (50-130)
[2019-11-16 04:02] VITALS: BP 105/68
== END 2019-11-16 04:18 | disposition home or self-care (01) ==
LOC: ED 00:21
DX: I48.20 Chronic atrial fibrillation, unspecified (principal); G89.18 Other acute postprocedural pain; I10 Essential (primary) hypertension; J45.909 Unspecified asthma, uncomplicated; E78.00 Pure hypercholesterolemia, unspecified; Z95.1 Presence of aortocoronary bypass graft; Z90.49 Acquired absence of other specified parts of digestive tract; Z98.890 Other specified postprocedural states; Z79.82 Long term (current) use of aspirin; Z79.01 Long term (current) use of anticoagulants; Z79.899 Other long term (current) drug therapy
CPT/HCPCS: 36415; 71045; 71275; 74174; 80048; 80061; 83690; 83880; 84484; 85025; 85379; 93005; 96374; 96375; 99285; J2270; J2405; Q9967

== ENCOUNTER 2019-12-14 10:16 | Emergency (ER) | payer BC ==
[2019-12-14 11:02] VITALS: BP 114/47
--- NOTE | 2019-12-14 12:17 | Event Note ---
ED Screening Note ED Screening Note: states she has generalized weakness, fatigue, lightheadedness, and nausea states she was evaluated in the ED two days ago and given RBC transfusion no CP, no SOB, no cough, no fever, no v/d PMHx CABG 5 weeks ago at [facility] no allergies to meds PSHx hysterectomy This initial assessment/diagnostic orders/clinical plan/treatment(s) is/are subject to change based on patients health status, clinical progression and re- assessment by fellow clinical providers in the ED. Further treatment and workup at subsequent clinical providers discretion. Patient/guardian urged not to elope from the ED as their condition may be serious if not clinically assessed and managed. Initial orders include: labs, EKG
[2019-12-14 12:57] LABS: Basophils % (Auto) 0.3 % (0.0-1.8); Eosinophils # (Auto) 0.3 K/mm3 (0.0-0.4); Hematocrit 23.2 % (30.3-42.9); Hemoglobin 7.2 gm/dl (10.1-14.3); Lymphocytes # (Auto) 1.1 K/mm3 (1.2-5.4); Mean Corpuscular HGB Conc 31 % (30-34); Mean Corpuscular Volume 81 fl (79-97); Monocytes # (Auto) 0.7 K/mm3 (0.0-0.8); Monocytes % (Auto) 7.8 % (0.0-7.3); Platelet Count 473 K/mm3 (140-440); Red Blood Count 2.87 M/mm3 (3.65-5.03); Red Cell Distribution Width 18.9 % (13.2-15.2)
[2019-12-14 13:12] LABS: Alanine Aminotransferase 16 units/L (7-56); Albumin 3.8 g/dL (3.9-5); BUN/Creatinine Ratio 17; Blood Urea Nitrogen 12 mg/dL (7-17); Calcium 8.8 mg/dL (8.4-10.2); Hemolysis Index 1; INR 1.02 (0.87-1.13)
[2019-12-14 13:13] LABS: Partial Thromboplastin Time 32.4 Sec. (24.2-36.6)
== END 2019-12-15 07:15 | disposition left against medical advice (07) ==
LOC: ED 10:16
DX: R11.0 Nausea (principal); R42 Dizziness and giddiness; R20.2 Paresthesia of skin; Z53.21 Procedure and treatment not carried out due to patient leaving prior to being seen by health care provider
CPT/HCPCS: 36415; 80053; 82550; 83735; 85025; 85610; 85730; 86850; 86900; 86901; 93005

== ENCOUNTER 2020-02-12 13:50 | Emergency (ER) | payer BC ==
--- NOTE | 2020-02-12 14:29 | Emergency Department Report ---
ED Lower Extremity HPI - General Chief Complaint: Extremity Injury, Lower Stated Complaint: POSS BROKEN TOE Time Seen by Provider: 02/12/20 14:12 Source: patient Mode of arrival: Ambulatory Limitations: No Limitations - History of Present Illness Initial Comments: Very pleasant 50-year-old female presents emergency department status post right toe injury after accidentally kicking a 3 pound dumbbell. Reports a dull throbbing pain which is worse with palpation and ambulation. No numbness or tingling. No issues with her ankles or her knee. Reports no prior injury to the same location. Pain is dull and throbbing Complaint: foot injury -: Sudden Type of Injury: blunt Place: home Severity: mild Context: direct blow Associated Symptoms: swelling - Related Data Home Medications Medication Instructions Recorded Confirmed Last Taken oxyCODONE [roxiCODONE] 5 mg PO Q6HR PRN 11/16/19 12/17/19 Unknown Gabapentin 300 mg PO DAILY 12/17/19 12/17/19 Unknown Metoprolol Tartrate 50 mg PO TID 12/17/19 12/17/19 Unknown Spironolactone [Aldactone] 1 tab PO DAILY 12/17/19 12/17/19 Unknown Previous Rx's Medication Instructions Recorded Last Taken Type Apixaban [Eliquis] 2.5 mg PO BID #60 tablet 12/18/19 Unknown Rx Aspirin EC [Halfprin EC] 81 mg PO QDAY #100 tablet. 12/18/19 Unknown Rx AtorvaSTATin [Lipitor] 40 mg PO QHS #30 tablet 12/18/19 Unknown Rx Pantoprazole Sodium [Protonix] 40 mg PO BID #60 tab 12/18/19 Unknown Rx Allergies Allergy/AdvReac Type Severity Reaction Status Date / Time No Known Allergies Allergy Verified 12/14/19 11:01 ED Review of Systems ROS: Stated complaint: POSS BROKEN TOE Other details as noted in HPI Comment: All other systems reviewed and negative ED Past Medical Hx - Past Medical History Previous Medical History?: Yes Hx Hypertension: Yes Hx Heart Attack/AMI: Yes (3) Hx Liver Disease: No Hx Renal Disease: No Hx Seizures: No Hx Asthma: Yes Hx COPD: No Additional medical history: high cholesterol. colitis. anemia - Surgical History Past Surgical History?: Yes Hx Coronary Stent: Yes (2006,2008,,2013,2019) Hx Cholecystectomy: Yes Additional Surgical History: back surgery. CABG 11/09/19. hysterectomy - Social History Smoking Status: Current Every Day Smoker - Medications Home Medications: Home Medications Medication Instructions Recorded Confirmed Last Taken Type oxyCODONE [roxiCODONE] 5 mg PO Q6HR PRN 11/16/19 12/17/19 Unknown History Gabapentin 300 mg PO DAILY 12/17/19 12/17/19 Unknown History Metoprolol Tartrate 50 mg PO TID 12/17/19 12/17/19 Unknown History Spironolactone [Aldactone] 1 tab PO DAILY 12/17/19 12/17/19 Unknown History Apixaban [Eliquis] 2.5 mg PO BID #60 tablet 12/18/19 Unknown Rx Aspirin EC [Halfprin EC] 81 mg PO QDAY #100 tablet. 12/18/19 Unknown Rx AtorvaSTATin [Lipitor] 40 mg PO QHS #30 tablet 12/18/19 Unknown Rx Pantoprazole Sodium [Protonix] 40 mg PO BID #60 tab 12/18/19 Unknown Rx ED Physical Exam - General Limitations: No Limitations General appearance: alert, in no apparent distress - Head Head exam: Present: atraumatic, normocephalic - Eye Eye exam: Present: normal appearance, PERRL, EOMI Pupils: Present: normal accommodation - ENT ENT exam: Present: normal exam, mucous membranes moist, TM's normal bilaterally - Neck Neck exam: Present: normal inspection, full ROM - Respiratory Respiratory exam: Present: normal lung sounds bilaterally. Absent: respiratory distress, wheezes, rales, chest wall tenderness, accessory muscle use - Cardiovascular Cardiovascular Exam: Present: regular rate, normal rhythm. Absent: systolic murmur, diastolic murmur, rubs, gallop - GI/Abdominal GI/Abdominal exam: Present: soft, normal bowel sounds - Extremities Exam Extremities exam: Present: normal inspection, tenderness - Expanded Lower Extremity Exam Right Foot/Toe exam: Present: tenderness. Absent: deformity, crepidus, erythema, amputation, puncture wound, tenderness at base of 5th metatarsal, nail avulsion Neuro vascular tendon exam: Present: no vascular compromise. Absent: pulse deficit, abnormal cap refill, motor deficit, sensory deficit 1 - Tenderness to this region with palpation no ecchymosis.Then will get her PVCs Pulses 2+ - Back Exam Back exam: Present: normal inspection - Neurological Exam Neurological exam: Present: alert, oriented X3 - Psychiatric Psychiatric exam: Present: normal affect, normal mood - Skin Skin exam: Present: warm, dry, intact, normal color. Absent: rash ED Lower Extremity MDM - Radiology Data Radiology results: report reviewed Referring Physician:MARIBELL TYLERPatient Name:SAMANTHA LANGPatient ID:[id number] of :[id number]:FemaleAccession:[id number] Date:[id number] Status:Finalized Findings [facility] [address] [place] [address] XRay Report Signed Patient: SAMANTHA LANG MR#: [id number] : 1970 Acct:[id number] Age/Sex: 50 / F ADM Date: 02/12/20 Loc: ED Attending Dr: Ordering Physician: CLAUDIA CASTELAN Date of Service: 02/12/20 Procedure(s): XR foot 3+V RT Accession Number(s): [id number] cc: CLAUDIA CASTELAN Fluoro Time In Minutes: RIGHT FOOT 4 VIEW(S) INDICATION / CLINICAL INFORMATION: pain, injury . Dropped weight on the foot/1st digit. COMPARISON: None available. FINDINGS: BONES / JOINT(S): No acute fracture or subluxation. No significant arthritis. SOFT TISSUES: Moderate soft tissue swelling of the great toe. ADDITIONAL FINDINGS: None. Signer Name: Zuhair Lr MD Signed: 02/12/2020 3:05 PM Workstation Name: [id number] Transcribed By: DT Dictated By: Feliberto Lr MD Electronically Authenticated By: Feliberto Lr MD Signed Date/Time: 02/12/20 1505 DD/ 1504 TD/TT: Critical care attestation.: If time is entered above; I have spent that time in minutes in the direct care of this critically ill patient, excluding procedure time. ED Disposition Clinical Impression: Contusion, toes Disposition: DC-01 TO HOME OR SELFCARE Is pt being admited?: No Does the pt Need Aspirin: No Condition: Stable Instructions: Contusion in Adults (ED), Foot Contusion (ED), RICE Therapy (ED) Referrals: [facility] [Provider Group] - 3-5 Days
--- NOTE | 2020-02-12 15:09 | XRay Report ---
RIGHT FOOT 4 VIEW(S) INDICATION / CLINICAL INFORMATION: pain, injury . Dropped weight on the foot/1st digit. COMPARISON: None available. FINDINGS: BONES / JOINT(S): No acute fracture or subluxation. No significant arthritis. SOFT TISSUES: Moderate soft tissue swelling of the great toe. ADDITIONAL FINDINGS: None. Signer Name: Zuhair Lr MD Signed: 02/12/2020 3:05 PM Workstation Name: [id number]
== END 2020-02-12 16:29 | disposition home or self-care (01) ==
LOC: ED 13:50
DX: S90.121A Contusion of right lesser toe(s) without damage to nail, initial encounter (principal); I25.2 Old myocardial infarction; I10 Essential (primary) hypertension; J45.909 Unspecified asthma, uncomplicated; Z90.49 Acquired absence of other specified parts of digestive tract; Z90.710 Acquired absence of both cervix and uterus; Z98.890 Other specified postprocedural states; F17.200 Nicotine dependence, unspecified, uncomplicated; Z79.899 Other long term (current) drug therapy; W22.09XA Striking against other stationary object, initial encounter; Y93.89 Activity, other specified; Y92.89 Other specified places as the place of occurrence of the external cause; Y99.8 Other external cause status
CPT/HCPCS: 82962

== ENCOUNTER 2020-03-08 06:38 | Observation (INO) | payer BC ==
[2020-03-08] MEDS ORDERED: ASPIRIN EC 325 MG TAB PO NR (07:15)
[2020-03-08] MEDS ORDERED: CLOPIDOGREL 75 MG TAB PO ONE (07:46)
[2020-03-08] MEDS ORDERED: CLOPIDOGREL 75 MG TAB ONE (07:46)
[2020-03-08 07:47] LABS: Basophils % (Auto) 0.4 % (0.0-1.8); Eosinophils # (Auto) 0.2 K/mm3 (0.0-0.4); Eosinophils % (Auto) 2.5 % (0.0-4.3); Hematocrit 43.3 % (30.3-42.9); Hemoglobin 14.7 gm/dl (10.1-14.3); Lymphocytes # (Auto) 1.5 K/mm3 (1.2-5.4); Lymphocytes % (Auto) 18.6 % (13.4-35.0); Mean Corpuscular HGB Conc 34 % (30-34); Mean Corpuscular Volume 92 fl (79-97); Monocytes # (Auto) 0.5 K/mm3 (0.0-0.8); Monocytes % (Auto) 5.6 % (0.0-7.3); Platelet Count 230 K/mm3 (140-440); Red Cell Distribution Width 18.5 % (13.2-15.2)
[2020-03-08 07:51] LABS: BUN/Creatinine Ratio 30; Blood Urea Nitrogen 27 mg/dL (7-17); Calcium 9.9 mg/dL (8.4-10.2); Hemolysis Index 1
[2020-03-08 07:54] LABS: INR 0.94 (0.87-1.13); Partial Thromboplastin Time 33.2 Sec. (24.2-36.6)
[2020-03-08] MEDS: SODIUM CHLORIDE 0.9% 500 ML 500 ML IV SCH ×2 (07:59→10:15)
[2020-03-08] MEDS ORDERED: NITROGLYCERIN SYRINGE 3 ML ONE ×2 (08:03→09:47)
[2020-03-08] MEDS ORDERED: LIDOCAINE (2%) 20 MG/1 ML VIAL 20 ML MDV INFILTRATI ONE (08:03)
[2020-03-08] MEDS ORDERED: HEPARIN/NS 5000 UNIT/500ML 1,000 ML IR ONE (08:03)
[2020-03-08] MEDS ORDERED: MIDAZOLAM 2 MG/2 ML INJ ONE (08:04)
[2020-03-08] MEDS: fentaNYL 100 MCG/2 ML INJ ONE ×2 (08:37→08:55)
[2020-03-08] MEDS ORDERED: ATROPINE 0.1% (1 MG/10 ML) CARDIAC SYRINGE ONE (08:52)
[2020-03-08] MEDS: HEPARIN 10,000 UNITS/10 ML VIAL ONE ×2 (09:10→09:20)
[2020-03-08] MEDS ORDERED: HEPARIN/NS 5000 UNIT/500ML 500 ML IR ONE (09:12)
[2020-03-08] MEDS ORDERED: PRASUGREL 10 MG TAB PO ONE (09:35)
[2020-03-08] MEDS ORDERED: fentaNYL 100 MCG/2 ML INJ ONE (09:42)
[2020-03-08] MEDS ORDERED: TIROFIBAN/NS 12,500 MCG/250 ML BAG IV ONE (09:47)
[2020-03-08] MEDS ORDERED: SODIUM CHLORIDE 0.9% 1000 ML 1,000 ML ONE (10:03)
[2020-03-08] MEDS ORDERED: FUROSEMIDE 20 MG/2 ML INJ ONE (10:08)
[2020-03-08] MEDS ORDERED: ONDANSETRON 4 MG/2 ML INJ IV PRN (10:14)
[2020-03-08] MEDS ORDERED: ACETAMINOPHEN 325 MG TAB PO PRN (10:14)
[2020-03-08] MEDS ORDERED: traMADol 50 MG TAB PO PRN (10:14)
[2020-03-08] MEDS ORDERED: HYDROcodone/ACETAMINOPHEN 5-325 MG TAB PO PRN (10:14)
[2020-03-08] MEDS ORDERED: SODIUM CHLORIDE 0.9% 1000 ML 1,000 ML IV SCH (10:15)
[2020-03-08] MEDS ORDERED: ALBUTEROL 2.5 MG/3 ML NEBU IH ONE (10:47)
[2020-03-08] MEDS ORDERED: TIROFIBAN/NS 12,500 MCG/250 ML BAG IV SCH (11:00)
[2020-03-08] MEDS ORDERED: ALBUTEROL 2.5 MG/3 ML NEBU IH PRN (11:00)
--- NOTE | 2020-03-08 14:20 | Cardiac Catherization Report ---
PROCEDURE: Left heart catheterization/percutaneous coronary intervention/interventional ultrasound and balloon angioplasty. CLINICAL INFORMATION: This is a 50-year-old female with history of premature coronary artery disease, having first myocardial infarction at age of 36. She has had PCI in 2010, 2013 and 2019. Cardiac catheterization in October showed in-stent restenosis with new lesions in the circumflex. The patient had 3-vessel bypass, KEMP to LAD, left radial graft to OM and SVG to PDA. The patient presents with recurrent chest pain with exertion with large ischemia on stress test, here for a left heart catheterization. Procedure was done with moderate sedation started at 8:37, finished at 9:50. It is an hour and 13 minutes of moderate sedation. Procedure was performed via the right femoral artery, sterile technique, local anesthesia, 5-[place] groin sheath inserted. So, a 5-[place] catheter was used to engage left system with following findings: Left main is large caliber, is patent, bifurcates. LAD ostial 80%. LAD stent has diffuse disease, the 30% with competitive flow in the distal LAD. Circumflex ostial 95%. Stents from the circumflex going to OM2 are diffuse disease, in-stent restenosis with 1 focal area of 80%. There is lower 2 branches at the distal portion of OM2 that have ostial 80% and lower branch is occluded with some competitive flow. Distal circ and AV groove has an ostial 80%. RCA engaged with an AR mod catheter, proximal mid stent diffuse disease with focal areas of 80% with mid 100% with competitive flow. SVG to PDA engaged with AR mod catheter, large caliber graft, free of disease from the ostium, body, and anastomosis into the PDA with retrograde fill. KEMP was engaged with IM catheter, large caliber graft, free of disease from the ostium, body, anastomosis feeding into the mid LAD , medium caliber runoff. Left radial graft to the OM engaged with a JR4 catheter, it is atretic, less than 1.5 mm, LV gram done in MARK ANTHONY and VERGARA view shows normal LV function, EF 55-60%, LVEDP 26 mmHg, LV is 160. Aortic is 160/56. No gradient across the aortic valve on pullback. Percutaneous/intravascular ultrasound and POBA of the circumflex and OM system: 1. Changed out the 5-[place] groin sheath to a 6-[place] groin sheath. She had adequate ACT. Engaged the left system with an EBU 3.5 with side holes, crossed into the circumflex with a short [place] wire. 2. Predilated with 2.5 x 12 balloon at the left main and circumflex at 15 atmospheres. Intravascular ultrasound showed reference vessel in the circumflex at 3.5 x 3.8 and proximal at 4.0 x 4.2. So then stented the left main into the circumflex, across the LAD with a drug-eluting Resolute Bart[place] 3.5 x 18 mm at 15 atmospheres. Then ballooned the mid circumflex going to OM2 for in-stent restenosis with a noncompliant 3.0 x 12 at 18 atmospheres. 3. Then post-dilated the stent with a 4.0 x 12 times 2 inflations from the distal to proximal portion of the stent at 12-18 atmospheres. Repeat IVUS showed stent was well opposed and expanded into the left main circumflex into the circumflex. 4. There was transient and stagnant flow. IC nitroglycerin resolved. The patient is chest pain free, but the IC nitroglycerin and post-ballooning increased the size of the distal vessels with that. Coronary wire was removed. On multiple angiograms, continued HEATHER 3 flow into the left main and circumflex with good stent apposition of the left main stent and circumflex stent, now the circumflex opposed and reduced stenosis less than 10%. Upper branch of OM2 has an ostial 80% and lower branch has another 80% lesion with competitive flow noted and LAD ostial 90% and LAD stent with 20% in-stent restenosis with competitive flow in LAD. No dissection or embolization noted. A 6-[place] guiding catheter taken a guidewire, 6-[place] groin sheath sewn in. No hematoma, no bleeding. SUMMARY: 1. Successful PCI of the left main and circumflex with a drug-eluting Resolute 3.5 x 18, post-dilated with 4.0 x 12, IVUS confirmed and POBA of the mid circumflex going to OM2 with a noncompliant 3.0 x 12 ____ reduced stenosis down to less than 0%, but lower branch of OM2 has an ostial 80% and upper branch has an ostial lesion of 80%, LAD ostial 90%. LAD mid stent has 20% in-stent restenosis with a patent KEMP to LAD. 2. RCA proximal, mid stent diffuse disease with focal areas of 80%, mid 100% with competitive flow with a patent SVG to PDA. Atretic SVG to OM. Normal LV function. Urged the patient for smoking cessation. Load with Effient, aspirin, Ranexa. Post-PCI care, Aggrastat for 12 hours. JOB# [id number] VRM/NTS
[2020-03-08] MEDS: METOPROLOL TARTRATE 50 MG TAB PO SCH ×2 (14:38→21:45)
[2020-03-08 20:56] LABS: Hematocrit 40.1 % (30.3-42.9); Hemoglobin 13.2 gm/dl (10.1-14.3)
[2020-03-08] MEDS: RANOLAZINE ER 500 MG TAB 12HR PO SCH (22:55)
[2020-03-09 02:27] LABS: Hematocrit 39.7 % (30.3-42.9); Hemoglobin 13.1 gm/dl (10.1-14.3)
[2020-03-09 08:34] LABS: Basophils % (Auto) 0.3 % (0.0-1.8); Eosinophils # (Auto) 0.2 K/mm3 (0.0-0.4); Eosinophils % (Auto) 3.5 % (0.0-4.3); Hematocrit 40.3 % (30.3-42.9); Hemoglobin 13.4 gm/dl (10.1-14.3); Lymphocytes # (Auto) 1.2 K/mm3 (1.2-5.4); Lymphocytes % (Auto) 21.8 % (13.4-35.0); Mean Corpuscular HGB Conc 33 % (30-34); Mean Corpuscular Volume 93 fl (79-97); Monocytes # (Auto) 0.4 K/mm3 (0.0-0.8); Monocytes % (Auto) 6.6 % (0.0-7.3); Platelet Count 179 K/mm3 (140-440); Red Blood Count 4.32 M/mm3 (3.65-5.03); Red Cell Distribution Width 18.3 % (13.2-15.2)
[2020-03-09 08:39] VITALS: BP 167/64
[2020-03-09 08:51] LABS: Blood Urea Nitrogen 19 mg/dL (7-17); Hemolysis Index 21
[2020-03-09 08:55] LABS: BUN/Creatinine Ratio 38
[2020-03-09] MEDS ORDERED: ASPIRIN 81 MG TAB CHEW PO SCH (10:00)
[2020-03-09] MEDS ORDERED: FUROSEMIDE 20 MG TAB PO SCH (10:00)
[2020-03-09] MEDS ORDERED: GABAPENTIN 300 MG CAP PO SCH (10:00)
[2020-03-09] MEDS ORDERED: SPIRONOLACTONE 25 MG TAB PO SCH (10:00)
[2020-03-09] MEDS ORDERED: LISINOPRIL 20 MG TAB PO SCH (10:00)
[2020-03-09] MEDS: METOPROLOL TARTRATE 50 MG TAB PO SCH (10:03)
[2020-03-09] MEDS: RANOLAZINE ER 500 MG TAB 12HR PO SCH (10:03)
[2020-03-09] MEDS ORDERED: PRASUGREL 10 MG TAB PO SCH (10:14)
--- NOTE | 2020-03-09 10:15 | Short Stay Summary ---
Short Stay Documentation Date of service: 03/09/20 - History H&P: obtained from office - Allergies and Medications Current Medications: Allergies No Known Allergies Allergy (Verified 12/14/19 11:01) Home Medications Medication Instructions Recorded Confirmed Last Taken Type Gabapentin 300 mg PO DAILY 12/17/19 03/08/20 03/07/20 History 300 mg Metoprolol Tartrate 50 mg PO TID 12/17/19 03/08/20 03/07/20 History 50 mg Spironolactone [Aldactone] 1 tab PO DAILY 12/17/19 03/08/20 03/07/20 History 1 tab Aspirin EC [Halfprin EC] 81 mg PO QDAY #100 tablet. 12/18/19 03/08/20 03/07/20 Rx 81 mg AtorvaSTATin [Lipitor] 40 mg PO QHS #30 tablet 12/18/19 03/08/20 03/07/20 Rx 40 mg Clopidogrel [Plavix] 75 mg PO DAILY 03/08/20 03/08/20 03/07/20 History 75 mg Furosemide [Lasix] 20 mg PO QDAY 03/08/20 03/08/20 03/07/20 History 20 mg ISOSORBIDE MONOnitrate [Imdur ER] 30 mg PO DAILY 03/08/20 03/08/20 03/07/20 History 30 mg Nitroglycerin [place] [Nitromist] 1 spray SL PRN PRN 03/08/20 03/08/20 03/07/20 History 1 spray lisinopriL [Zestril TAB] 20 mg PO DAILY 03/08/20 03/08/20 03/07/20 History 20 mg Active Medications Acetaminophen (Tylenol) 650 mg PO Q4H PRN PRN Reason: Fever >100.5/SOL Hydrocodone Bitart/Acetaminophen ([place] 5/325) 1 each PO Q6H PRN PRN Reason: Pain, Moderate (4-6) Albuterol (Proventil) 2.5 mg IH Q4HRT PRN PRN Reason: Shortness Of Breath Last Admin: 03/08/20 10:50 Dose: 2.5 mg Documented by: Aspirin (Baby Aspirin) 81 mg PO QDAY [facility] Last Admin: 03/09/20 10:03 Dose: 81 mg Documented by: Atorvastatin Calcium (Lipitor) 40 mg PO QHS [facility] Last Admin: 03/08/20 22:55 Dose: 40 mg Documented by: Furosemide (Lasix) 20 mg PO QDAY [facility] Last Admin: 03/09/20 10:03 Dose: 20 mg Documented by: Gabapentin (Gabapentin) 300 mg PO DAILY [facility] Last Admin: 03/09/20 10:02 Dose: 300 mg Documented by: Isosorbide Mononitrate (Imdur) 60 mg PO DAILY [facility] Last Admin: 03/09/20 10:02 Dose: 60 mg Documented by: Lisinopril (Zestril) 20 mg PO DAILY [facility] Last Admin: 03/09/20 10:01 Dose: 20 mg Documented by: Metoprolol Tartrate (Metoprolol) 50 mg PO TID [facility] Last Admin: 03/09/20 10:03 Dose: Not Given Documented by: Ondansetron HCl (Zofran) 4 mg IV Q8H PRN PRN Reason: N/V unrelieved by Reglan Prasugrel (Effient) 10 mg PO QDAY [facility] Last Admin: 03/09/20 10:03 Dose: 10 mg Documented by: Ranolazine (Ranexa Er) 500 mg PO BID [facility] Last Admin: 03/09/20 10:03 Dose: 500 mg Documented by: Spironolactone (Aldactone) 25 mg PO DAILY [facility] Last Admin: 03/09/20 10:02 Dose: 25 mg Documented by: Tramadol HCl (Ultram) 50 mg PO Q4H PRN PRN Reason: Pain, Mild (1-3) - Physical exam General appearance: no acute distress Integumentary: no rash, no growths, no abnormal pigmentation, other (right groin C site c/d/i, no bleeding or hematoma) HEENT: Atraumatic, PERRLA, EOMI Lungs: Clear to auscultation Heart: Regular rate, Normal S1, Normal S2 Gastrointestinal: normal, normoactive bowel sounds Extremities: no ischemia, pulses intact, pulses symmetrical Neurological: Normal gait, Normal speech, Strength at 5/5 X4 ext - Brief post op/procedure progress note Date of procedure: 03/08/20 Pre-op diagnosis: CAD Post-op diagnosis: same Procedure: LHC with PCI - see dictated cath report Anesthesia: local Estimated blood loss: none Condition: stable - Disposition Condition at discharge: Good Disposition: DC-01 TO HOME OR SELFCARE - Discharge Diagnoses (1) CAD (coronary artery disease) Status: Chronic Qualifiers: Coronary Disease-Associated Artery/Lesion type: unspecified vessel or lesion type [place] vs. transplanted heart: [place] heart Associated angina: with unspecified angina Qualified Code(s): I25.119 - Atherosclerotic heart disease of [place] coronary artery with unspecified angina pectoris (2) Stented coronary artery Status: Chronic (3) History of coronary artery bypass graft Status: Chronic (4) HTN (hypertension) Status: Chronic Qualifiers: Hypertension type: essential hypertension Qualified Code(s): I10 - Essential (primary) hypertension (5) Hyperlipemia, mixed Status: Chronic (6) Tobacco use Status: Chronic Short Stay Discharge Plan Activity: advance as tolerated Diet: low fat, low cholesterol, low salt Wound: open to air, keep clean and dry, per your surgeon's advice Follow up with: EHSAN MTAHIS MD [Primary Care Provider] - 7 Days MICHELLE PATEL MD [Staff Physician] - 7 Days (video visit, 03/20/2020 @ 11:00AM) Prescriptions: ISOSORBIDE MONOnitrate [Imdur ER] 60 mg PO QDAY #90 tab.er.24h Ranolazine ER [Ranexa ER] 500 mg PO BID #240 tab.er.12h
--- NOTE | 2020-03-09 10:36 | XRay Report ---
CHEST 1 VIEW INDICATION: post pci. COMPARISON: 11/16/2019 FINDINGS: Support devices: Catheter from an inferior/IVC approach projects over the right main pulmonary artery . Heart: Normal. Lungs/Pleura: No acute pulmonary or pleural findings. IMPRESSION: 1. No acute findings. Signer Name: Johan Kaba MD Signed: 03/09/2020 10:32 AM Workstation Name: [id number]
[2020-03-09 11:06] LABS: Hematocrit 41.1 % (30.3-42.9); Hemoglobin 13.5 gm/dl (10.1-14.3)
== END 2020-03-09 13:15 | disposition home or self-care (01) ==
LOC: CATHLABREC 06:38 → 4A 10:14
PROVIDERS: ADMIT Internal Medicine; ATTEND Internal Medicine
DX: I25.10 Atherosclerotic heart disease of native coronary artery without angina pectoris (principal); I73.9 Peripheral vascular disease, unspecified; I11.0 Hypertensive heart disease with heart failure; I50.32 Chronic diastolic (congestive) heart failure; E78.49 Other hyperlipidemia; K25.9 Gastric ulcer, unspecified as acute or chronic, without hemorrhage or perforation; D50.0 Iron deficiency anemia secondary to blood loss (chronic); I25.2 Old myocardial infarction; E66.9 Obesity, unspecified; I48.0 Paroxysmal atrial fibrillation; E78.5 Hyperlipidemia, unspecified; R07.2 Precordial pain; R06.02 Shortness of breath; Z95.1 Presence of aortocoronary bypass graft; Z72.0 Tobacco use; Z90.710 Acquired absence of both cervix and uterus; Z90.49 Acquired absence of other specified parts of digestive tract; Z79.82 Long term (current) use of aspirin; Z68.29 Body mass index [BMI] 29.0-29.9, adult
CPT/HCPCS: 36415; 71045; 80048; 82550; 82553; 84484; 85014; 85018; 85025; 85049; 85347; 85610; 85730; 92978; 93005; 93459; 94640; 96360; 96361; A9270; C1725; C1753; C1769; C1874; C1887; C1894; C9600; G0378; J1644; J1940; J2250; J3010; J3246; J7030; J7040; 92928; J0461; Q9967

== ENCOUNTER 2020-12-19 23:23 | Observation (INO) | payer SELFPAY ==
[2020-12-19] MEDS ORDERED: ASPIRIN 325 MG TAB PO ONE (23:47)
[2020-12-20 00:15] LABS: Basophils % (Auto) 0.5 % (0.0-1.8); Eosinophils # (Auto) 0.2 K/mm3 (0.0-0.4); Eosinophils % (Auto) 3.1 % (0.0-4.3); Hematocrit 39.8 % (30.3-42.9); Lymphocytes # (Auto) 2.2 K/mm3 (1.2-5.4); Mean Corpuscular HGB Conc 35 % (30-34); Mean Corpuscular Volume 99 fl (79-97); Monocytes # (Auto) 0.3 K/mm3 (0.0-0.8); Monocytes % (Auto) 4.9 % (0.0-7.3); Platelet Count 204 K/mm3 (140-440); Red Blood Count 4.04 M/mm3 (3.65-5.03)
--- NOTE | 2020-12-20 00:27 | XRay Report ---
XR chest routine 2V INDICATION / CLINICAL INFORMATION: CP, SOB. COMPARISON: 03/09/2020 FINDINGS: SUPPORT DEVICES: None. HEART /PULMONARY VASCULATURE: Median sternotomy changes. Heart is enlarged without significant pulmon melissa vasculature congestion. LUNGS / PLEURA: No significant pulmonary or pleural abnormality. No pneumothorax. ADDITIONAL FINDINGS: No significant additional findings. IMPRESSION: 1. No acute findings. Signer Name: Jesus Alberto Le MD Signed: 12/20/2020 12:23 AM Workstation Name: [id number]
[2020-12-20 00:37] LABS: Alanine Aminotransferase 12 units/L (7-56); Albumin 4.5 g/dL (3.9-5); BUN/Creatinine Ratio 18; Blood Urea Nitrogen 16 mg/dL (7-17); Calcium 8.9 mg/dL (8.4-10.2); Hemolysis Index 10
[2020-12-20] MEDS ORDERED: NITROGLYCERIN 0.4 MG TAB SUBL SL PRN (07:40)
[2020-12-20] MEDS ORDERED: MORPHINE 4 MG/1 ML INJ IV ONE (07:40)
--- NOTE | 2020-12-20 07:40 | Emergency Department Report ---
ED Chest Pain HPI - General Chief Complaint: Chest Pain Stated Complaint: CHEST/BACK PAIN/SOB PUI?: No Time Seen by Provider: 12/20/20 07:31 Source: patient, RN notes reviewed, old records reviewed Mode of arrival: Ambulatory Limitations: No Limitations - History of Present Illness Initial Comments: The patient is a 50-year-old female. She follows with [facility] cardiology. She has a history of premature coronary artery disease, with first HI at the age of 36. She has had PCI in 2010, , and . Patient also had cardiac bypass surgery last year. This patient had a cardiac catheterization at this hospital March 2020. She had successful PCI of the left main and circumflex, with a drug-eluting resolute stent, postdilated, with intravenous ultrasound confirmed, and plain old bare- metal stent of the mid circumflex going down to the OM2. She is currently compliant with aspirin and Plavix. She also takes nitroglycerin. She reports that she was recently admitted to [facility] for acute coronary syndrome and chest pain. She reports that she had an echocardiogram and stress test. She reports that based off of the results of the stress test, cardiac catheterization was recommended. However, she reports that she waited 3 days for the cardiac catheterization, and never got it. She thus left that hospital. She complains of persistent intermittent exertional central, left-sided, and right-sided chest pain, that radiates to the back, with shortness of breath and diaphoresis. This is similar to her prior anginal symptoms. Her pain worsens with exertion. It decreases with rest. The patient denies headache, neck pain, abdominal pain, Covid symptoms, hematemesis, bright red blood per rectum. MD Complaint: chest pain -: Gradual, hour(s), days(s) Onset: during rest, during exertion Pain Location: substernal, left chest, right chest Pain Radiation: back Severity scale (0 -10): 7 Quality: heaviness, sharp Consistency: intermittent Improves With: nitroglycerin, rest Worsens With: exertion re: diaphoresis, dyspnea Treatments Prior to Arrival: aspirin Aspirin use within the Past 7 Days: (1) Yes - Related Data Home Medications Medication Instructions Recorded Confirmed Last Taken Gabapentin 300 mg PO DAILY 12/17/19 03/08/20 03/07/20 300 mg Metoprolol Tartrate 50 mg PO TID 12/17/19 03/08/20 03/07/20 50 mg Spironolactone [Aldactone] 1 tab PO DAILY 12/17/19 03/08/20 03/07/20 1 tab Clopidogrel [Plavix] 75 mg PO DAILY 03/08/20 03/08/20 03/07/20 75 mg Furosemide [Lasix] 20 mg PO QDAY 03/08/20 03/08/20 03/07/20 20 mg ISOSORBIDE MONOnitrate [Imdur ER] 30 mg PO DAILY 03/08/20 03/08/20 03/07/20 30 mg Nitroglycerin [place] [Nitromist] 1 spray SL PRN PRN 03/08/20 03/08/20 03/07/20 1 spray lisinopriL [Zestril TAB] 20 mg PO DAILY 03/08/20 03/08/20 03/07/20 20 mg Previous Rx's Medication Instructions Recorded Last Taken Type Aspirin EC [Halfprin EC] 81 mg PO QDAY #100 tablet. 12/18/19 03/07/20 Rx 81 mg AtorvaSTATin [Lipitor] 40 mg PO QHS #30 tablet 12/18/19 03/07/20 Rx 40 mg ISOSORBIDE MONOnitrate [Imdur ER] 60 mg PO QDAY #90 tab.er.24h 03/09/20 Unknown Rx Ranolazine ER [Ranexa ER] 500 mg PO BID #240 tab.er.12h 03/09/20 Unknown Rx Allergies Allergy/AdvReac Type Severity Reaction Status Date / Time No Known Allergies Allergy Verified 12/14/19 11:01 Heart Score - HEART Score History: Highly suspicious EKG: Non-specific Age: 45-65 Risk factors: > 3 risk factors or hx of atherosclerotic disease Troponin: < normal limit HEART Score: 6 - EKG Read Time Time EKG Completed: 23:45 EKG Read Time: 23:54 - Critical Actions Critical Actions: 4-6 pts:12-16.6% risk of adverse cardiac event. Should be admitted ED Review of Systems ROS: Stated complaint: CHEST/BACK PAIN/SOB Other details as noted in HPI Constitutional: other (Denies loss of taste and smell). denies: diaphoresis, fever, malaise, weakness Eyes: denies: eye discharge Respiratory: shortness of breath. denies: cough Cardiovascular: chest pain Gastrointestinal: denies: vomiting, hematemesis, melena, hematochezia Genitourinary: denies: dysuria Musculoskeletal: back pain Neurological: weakness Hematological/Lymphatic: denies: easy bleeding ED Past Medical Hx - Past Medical History Previous Medical History?: Yes Hx Hypertension: Yes Hx Heart Attack/AMI: Yes (3) Hx Congestive Heart Failure: No Hx Diabetes: No Hx Liver Disease: No Hx Renal Disease: No Hx Seizures: No Hx Asthma: Yes Hx COPD: No Additional medical history: high cholesterol. colitis. anemia - Surgical History Past Surgical History?: Yes Hx Coronary Stent: Yes (2006,2008,,2013,2019) Hx Cholecystectomy: Yes Additional Surgical History: back surgery. CABG 11/09/19. hysterectomy - Social History Smoking Status: Current Every Day Smoker - Medications Home Medications: Home Medications Medication Instructions Recorded Confirmed Last Taken Type Gabapentin 300 mg PO DAILY 12/17/19 03/08/20 03/07/20 History 300 mg Metoprolol Tartrate 50 mg PO TID 12/17/19 03/08/20 03/07/20 History 50 mg Spironolactone [Aldactone] 1 tab PO DAILY 12/17/19 03/08/20 03/07/20 History 1 tab Aspirin EC [Halfprin EC] 81 mg PO QDAY #100 tablet. 12/18/19 03/08/20 03/07/20 Rx 81 mg AtorvaSTATin [Lipitor] 40 mg PO QHS #30 tablet 12/18/19 03/08/20 03/07/20 Rx 40 mg Clopidogrel [Plavix] 75 mg PO DAILY 03/08/20 03/08/20 03/07/20 History 75 mg Furosemide [Lasix] 20 mg PO QDAY 03/08/20 03/08/20 03/07/20 History 20 mg ISOSORBIDE MONOnitrate [Imdur ER] 30 mg PO DAILY 03/08/20 03/08/20 03/07/20 History 30 mg Nitroglycerin [place] [Nitromist] 1 spray SL PRN PRN 03/08/20 03/08/20 03/07/20 History 1 spray lisinopriL [Zestril TAB] 20 mg PO DAILY 09/30/20 09/30/20 09/29/20 History 20 mg ISOSORBIDE MONOnitrate [Imdur ER] 60 mg PO QDAY #90 tab.er.24h 03/09/20 Unknown Rx Ranolazine ER [Ranexa ER] 500 mg PO BID #240 tab.er.12h 03/09/20 Unknown Rx ED Physical Exam - General Limitations: No Limitations General appearance: alert, in no apparent distress, obese - Head Head exam: Present: atraumatic, normocephalic - Eye Eye exam: Present: normal appearance, EOMI. Absent: nystagmus - ENT ENT exam: Present: normal exam, normal orophraynx, mucous membranes moist, normal external ear exam - Neck Neck exam: Present: normal inspection, full ROM. Absent: tenderness, meningismus, lymphadenopathy - Respiratory Respiratory exam: Present: normal lung sounds bilaterally. Absent: respiratory distress, wheezes, rales, rhonchi, stridor, decreased breath sounds - Cardiovascular Cardiovascular Exam: Present: normal rhythm, bradycardia, normal heart sounds. Absent: tachycardia, irregular rhythm, systolic murmur, diastolic murmur, rubs, gallop - GI/Abdominal GI/Abdominal exam: Present: soft. Absent: distended, tenderness, guarding, rebound, rigid, pulsatile mass - Extremities Exam Extremities exam: Present: normal inspection, full ROM, other (2+ pulses noted in the bilateral upper and lower extremities. There is no palpable cord. negative Homans sign. Muscular compartments are soft. The pelvis is stable.). Absent: pedal edema, calf tenderness - Back Exam Back exam: Present: normal inspection, full ROM. Absent: tenderness, CVA tend erness (R), CVA tenderness (L), paraspinal tenderness, vertebral tenderness - Neurological Exam Neurological exam: Present: alert, oriented X3, other (No facial droop. Tongue midline. Extraocular movements intact bilaterally. Facial sensation intact to light touch in V1, V2, V3 distribution bilaterally. 5 and a 5 strength in 4 extremities. Sensation intact to light touch in 4 extremities.). Absent: motor sensory deficit - Psychiatric Psychiatric exam: Present: normal affect, normal mood - Skin Skin exam: Present: warm, dry, intact, normal color. Absent: rash ED Course Vital Signs 12/19/20 12/20/20 12/20/20 23:41 05:00 07:30 Temperature 97.9 F Pulse Rate 58 L 56 L 58 L Respiratory 16 16 15 Rate Blood Pressure 161/51 177/65 Blood Pressure 159/60 [Right] O2 Sat by Pulse 98 100 99 Oximetry 12/20/20 12/20/20 12/20/20 07:52 08:16 08:30 Temperature Pulse Rate 54 L 53 L 60 Respiratory 16 13 Rate Blood Pressure 177/65 136/58 142/60 Blood Pressure [Right] O2 Sat by Pulse 93 96 Oximetry 12/20/20 12/20/20 08:40 08:50 Temperature Pulse Rate 59 L 53 L Respiratory 17 10 L Rate Blood Pressure 141/57 141/57 Blood Pressure [Right] O2 Sat by Pulse 93 99 Oximetry JOHNATHAN score - Johnathan Score Age > 65: (0) No Aspirin use within the Past 7 Days: (1) Yes 3 or more CAD Risk Factors: (1) Yes 2 or more Angina events in past 24 hrs: (1) Yes Known CAD with more than 50% Stenosis: (1) Yes Elevated Cardiac Markers: (0) No ST Deviation Greater than 0.5mm: (1) Yes JOHNATHAN Score: 5 ED Medical Decision Making - Lab Data Result diagrams: 12/19/20 23:52 12/19/20 23:52 Vital Signs 12/19/20 12/20/20 23:41 05:00 Temperature 97.9 F Pulse Rate 58 L 56 L Respiratory 16 16 Rate Blood Pressure 161/51 Blood Pressure 159/60 [Right] O2 Sat by Pulse 98 100 Oximetry Lab Results 12/19/20 12/19/20 12/20/20 Range/Units 23:52 23:52 02:51 WBC 7.1 (4.5-11.0) K/mm3 RBC 4.04 (3.65-5.03) M/mm3 Hgb 14.0 (10.1-14.3) gm/dl Hct 39.8 (30.3-42.9) % MCV 99 H (79-97) fl MCH 35 H (28-32) pg MCHC 35 H (30-34) % RDW 13.0 L (13.2-15.2) % Plt Count 204 (140-440) K/mm3 Lymph % (Auto) 31.0 (13.4-35.0) % [place] % (Auto) 4.9 (0.0-7.3) % Eos % (Auto) 3.1 (0.0-4.3) % Baso % (Auto) 0.5 (0.0-1.8) % Lymph # (Auto) 2.2 (1.2-5.4) K/mm3 [place] # (Auto) 0.3 (0.0-0.8) K/mm3 Eos # (Auto) 0.2 (0.0-0.4) K/mm3 Baso # (Auto) 0.0 (0.0-0.1) K/mm3 Seg Neutrophils % 60.5 (40.0-70.0) % Seg Neutrophils # 4.3 (1.8-7.7) K/mm3 Sodium 139 (137-145) mmol/L Potassium 4.5 (3.6-5.0) mmol/L Chloride 100.6 (98-107) mmol/L Carbon Dioxide 24 (22-30) mmol/L Anion Gap 19 mmol/L BUN 16 (7-17) mg/dL Creatinine 0.9 (0.6-1.2) mg/dL Estimated GFR > 60 ml/min BUN/Creatinine Ratio 18 % Glucose 121 H (65-100) mg/dL Calcium 8.9 (8.4-10.2) mg/dL Total Bilirubin < 0.20 (0.1-1.2) mg/dL AST 14 (5-40) units/L ALT 12 (7-56) units/L Alkaline Phosphatase 149 H (35-129) units/L Troponin T < 0.010 < 0.010 (0.00-0.029) ng/mL Total Protein 6.7 (6.3-8.2) g/dL Albumin 4.5 (3.9-5) g/dL Albumin/Globulin Ratio 2.0 % 12/20/ Range/Units 05:57 WBC (4.5-11.0) K/mm3 RBC (3.65-5.03) M/mm3 Hgb (10.1-14.3) gm/dl Hct (30.3-42.9) % MCV (79-97) fl MCH (28-32) pg MCHC (30-34) % RDW (13.2-15.2) % Plt Count (140-440) K/mm3 Lymph % (Auto) (13.4-35.0) % [place] % (Auto) (0.0-7.3) % Eos % (Auto) (0.0-4.3) % Baso % (Auto) (0.0-1.8) % Lymph # (Auto) (1.2-5.4) K/mm3 [place] # (Auto) (0.0-0.8) K/mm3 Eos # (Auto) (0.0-0.4) K/mm3 Baso # (Auto) (0.0-0.1) K/mm3 Seg Neutrophils % (40.0-70.0) % Seg Neutrophils # (1.8-7.7) K/mm3 Sodium (137-145) mmol/L Potassium (3.6-5.0) mmol/L Chloride (98-107) mmol/L Carbon Dioxide (22-30) mmol/L Anion Gap mmol/L BUN (7-17) mg/dL Creatinine (0.6-1.2) mg/dL Estimated GFR ml/min BUN/Creatinine Ratio % Glucose (65-100) mg/dL Calcium (8.4-10.2) mg/dL Total Bilirubin (0.1-1.2) mg/dL AST (5-40) units/L ALT (7-56) units/L Alkaline Phosphatase (35-129) units/L Troponin T < 0.010 (0.00-0.029) ng/mL Total Protein (6.3-8.2) g/dL Albumin (3.9-5) g/dL Albumin/Globulin Ratio % - EKG Data -: EKG Interpreted by Sd EKG shows normal: sinus rhythm Rate: bradycardia - EKG Data 12/20/20 07:51 EKG #1 interpreted at 23: 54 Sinus rhythm, with a normal P wave axis. QTC 446 ms, DC interval within normal limits. T wave inversions 1 and aVL. Poor R wave progression. Nonspecific ST abnormality V2 and V3. This is an abnormal EKG. This is not a STEMI. This is grossly unchanged when compared to prior EKG from 2019, although ST morphology appears more suspicious in V2 and V3 with this EKG. - Radiology Data Radiology results: pending, report reviewed, image reviewed [facility] [address] [place] [address] XRay Report Signed Patient: SAMANTHA LANG MR#: [id number] : 1970 Acct:[id number] Age/Sex: 50 / F ADM Date: 12/19/20 Loc: ED Attending Dr: Ordering Physician: SOHA MOSQUERA MD Date of Service: 12/19/20 Procedure(s): XR chest routine 2V Accession Number(s): [id number] cc: SOHA MOSQUERA MD Fluoro Time In Minutes: XR chest routine 2V INDICATION / CLINICAL INFORMATION: CP, SOB. COMPARISON: 03/09/2020 FINDINGS: SUPPORT DEVICES: None. HEART /PULMONARY VASCULATURE: Median sternotomy changes. Heart is enlarged without significant pulmonary vasculature congestion. LUNGS / PLEURA: No significant pulmonary or pleural abnormality. No pneumothorax. ADDITIONAL FINDINGS: No significant additional findings. IMPRE SSION: 1. No acute findings. Signer Name: Zen Le MD Signed: 12/20/2020 12:23 AM Workstation Name: [id number] Transcribed By: JS Dictated By: ZEN LE MD Electronically Authenticated By: ZEN LE MD Signed Date/Time: 12/20/2022 DD/ - Medical Decision Making Differential diagnosis, including the not limited to: Stable angina, unstable angina, acute coronary syndrome Assessment and plan: 50-year-old female, who is not currently tachycardic, tachypneic or hypoxic, who denies DVT and pulmonary embolism risk factors, who is low risk by Wells criteria for pulmonary embolism, moderate risk for major adverse cardiac event as per heart score, reports concerning outpatient positive stress test at another hospital within the past few weeks, merits admission for urgent cardiac catheterization. Make patient n.p.o., she has not eaten since last night. Start as needed nitroglycerin, and morphine, gentle fluids. Aspirin administered. Have contacted cardiology on-call for her group, Dr. Butler, and have discussed her history, physical, laboratory studies, imaging studies, EKG, and prior cath report. Dr. Butler and [facility] cardiology will follow in consultation, and see this patient urgently, and make recommendations regarding cardiac catheterization. The patient is amenable to admission hospitalization for the aforementioned. All of her questions were answered to her satisfaction. The patient will be admitted to the medical service under the care of Dr. Manuel Swenson Critical Care Time: Yes Critical care time in (mins) excluding proc time.: 35 Critical care attestation.: If time is entered above; I have spent that time in minutes in the direct care of this critically ill patient, excluding procedure time. ED Disposition Clinical Impression: Acute chest pain, CAD (coronary artery disease) Disposition: OP ADMIT IP TO THIS HOSP Is pt being admited?: Yes Does the pt Need Aspirin: Yes Condition: Good
[2020-12-20] MEDS ORDERED: SODIUM CHLORIDE 0.9% 500 ML 500 ML IV ONE (07:49)
[2020-12-20] MEDS ORDERED: ONDANSETRON 4 MG/2 ML INJ ONE (07:49)
[2020-12-20] MEDS ORDERED: ONDANSETRON 4 MG/2 ML INJ IV ONE (07:49)
[2020-12-20] MEDS ORDERED: ASPIRIN 81 MG TAB CHEW PO ONE (07:53)
--- NOTE | 2020-12-20 08:31 | History and Physical Report ---
History of Present Illness Date of examination: 12/20/20 Date of admission: 12/20/2020 Chief complaint: Chest pain History of present illness: 50 y.o. female with a past medical hx of CAD s/p CABG x3 (11/05/2019), s/p multiple PCIs (most recently Cfx on 09/14/2019 - on ASA/Plavix), chronic anemia, carotid artery stenosis, PAF (on Eliquis), chronic HFpEF, HTN, HLD, PAD, and tobacco abuse. Pt was found to have multi-vessel disease on [facility] 11/05/2019 requiring transfer to [facility] for CABG x 3. 12/18/2019>Patient was noted to have antral ulcer,cardiac status is stable. Patient claims compliance with dual antiplatelets aspirin and Plavix. She also takes nitroglycerin. She reports that she was recently admitted to [facility] for acute coronary syndrome and chest pain. She reports that she had an echocardiogram and stress test. She reports that based off of the results of the stress test, cardiac catheterization was recommended. However, she reports that she waited 3 days for the cardiac catheterization, and never got it. And left AMA . Today she comes to the emergency room with the complaints of persistent intermittent exertional left-sided chest pain that radiates to the back, with shortness of breath and diaphoresis. This is similar to her prior anginal symptoms. Aggravated by exertion and relieved by rest Initial work-up in the emergency room consistent with negative cardiac enzymes x2 Past History Past Medical History: atrial fib, anemia, CAD, ESRD, heart failure, hypertension, hyperlipidemia, other (PAD) Past Surgical History: CABG, PTCA (Coronary artery disease status post CABG x3) Social history: smoking Medications and Allergies Allergies Allergy/AdvReac Type Severity Reaction Status Date / Time No Known Allergies Allergy Verified 12/14/19 11:01 Home Medications Medication Instructions Recorded Confirmed Last Taken Type Gabapentin 300 mg PO DAILY 12/17/19 03/08/20 03/07/20 History 300 mg Metoprolol Tartrate 50 mg PO TID 12/17/19 03/08/20 03/07/20 History 50 mg Spironolactone [Aldactone] 1 tab PO DAILY 12/17/19 03/08/20 03/07/20 History 1 tab Aspirin EC [Halfprin EC] 81 mg PO QDAY #100 tablet. 12/18/19 03/08/20 03/07/20 Rx 81 mg AtorvaSTATin [Lipitor] 40 mg PO QHS #30 tablet 12/18/19 03/08/20 03/07/20 Rx 40 mg Clopidogrel [Plavix] 75 mg PO DAILY 03/08/20 03/08/20 03/07/20 History 75 mg Furosemide [Lasix] 20 mg PO QDAY 03/08/20 03/08/20 03/07/20 History 20 mg ISOSORBIDE MONOnitrate [Imdur ER] 30 mg PO DAILY 03/08/20 03/08/20 03/07/20 History 30 mg Nitroglycerin [place] [Nitromist] 1 spray SL PRN PRN 03/08/20 03/08/20 03/07/20 History 1 spray lisinopriL [Zestril TAB] 20 mg PO DAILY 03/08/20 03/08/20 03/07/20 History 20 mg ISOSORBIDE MONOnitrate [Imdur ER] 60 mg PO QDAY #90 tab.er.24h 03/09/20 Unknown Rx Ranolazine ER [Ranexa ER] 500 mg PO BID #240 tab.er.12h 03/09/20 Unknown Rx Active Meds: Active Medications Nitroglycerin (Nitroglycerin 0.4 Mg Tab Subl) 0.4 mg SL .Q5MIN PRN PRN Reason: Chest Pain Last Admin: 12/20/20 07:52 Dose: 0.4 mg Documented by: Review of Systems Constitutional: fatigue, weakness, no weight loss, no weight gain, no fever, no chills Ears, nose, mouth and throat: no nasal congestion, no nasal discharge Cardiovascular: chest pain, no orthopnea, no palpitations, no rapid/irregular he art beat Respiratory: no cough, no excessive sputum, no hemoptysis, no shortness of breath Genitourinary Female: no pelvic pain, no dysuria Musculoskeletal: no neck stiffness, no shooting leg pain, no myalgias, no arthritis Integumentary: no rash, no lesions Neurological: no numbness, no tingling, no seizures Psychiatric: no anxiety, no memory loss, no suicidal ideation, no disorientation, no paranoia, no depression Endocrine: no cold intolerance, no heat intolerance, no polyphagia, no polydipsia Hematologic/Lymphatic: no easy bruising Allergic/Immunologic: no urticaria, no allergic rhinitis Exam - Constitutional Vitals: Temp Pulse Resp BP Pulse Ox 97.9 F 54 L 16 177/65 100 12/19/20 23:41 12/20/20 07:52 12/20/20 05:00 12/20/20 07:52 12/20/20 05:00 General appearance: Present: no acute distress, well-nourished, obese - EENT Eyes: Present: PERRL, EOM intact - Neck Neck: Present: supple, normal ROM - Respiratory Respiratory effort: normal Respiratory: bilateral: diminished, negative: rales, rhonchi, wheezing - Cardiovascular Rhythm: regular Heart Sounds: Present: S1 & S2 - Extremities Extremities: no ischemia, No edema - Abdominal General gastrointestinal: Present: soft, non-tender, non-distended, normal bowel sounds - Integumentary Integumentary: Present: clear, warm - Musculoskeletal Musculoskeletal: strength equal bilaterally, generalized weakness - Psychiatric Psychiatric: appropriate mood/affect, cooperative - Neurologic Neurologic: CNII-XII intact, moves all extremities HEART Score - HEART Score EKG: Non-specific Age: 45-65 Risk factors: > 3 risk factors or hx of atherosclerotic disease Troponin: Troponin T < 0.010 ng/mL (0.00-0.029) 12/20/20 05:57 Troponin: < normal limit - Critical Actions Critical Actions: 4-6 pts:12-16.6% risk of adverse cardiac event. Should be admitted Results - Labs CBC & Chem 7: 12/19/20 23:52 12/19/20 23:52 Labs: Abnormal lab results 12/19/20 12/19/20 Range/Units 23:52 23:52 MCV 99 H (79-97) fl MCH 35 H (28-32) pg MCHC 35 H (30-34) % RDW 13.0 L (13.2-15.2) % Glucose 121 H (65-100) mg/dL Alkaline Phosphatase 149 H (35-129) units/L Assessment and Plan --Acute chest pain/unstable angina Current Visit: Yes Status: Acute Serial cardiac enzyme and serial EKGs Resume cardiac medications Cardiology consulted Possible left heart catheterization tomorrow N.p.o. from midnight --History of CAD status post CABG Current Visit: Yes Status: Chronic Resume home cardiac medications Dual antiplatelets therapy aspirin and Plavix Beta-blockers, ranolazine ,nitrates and statin --Chronic congestive heart failure Current Visit: Yes Status: Chronic With preserved left ventricular function Continue diuretics, beta-blockers, input output monitoring Fluid restriction, low-sodium diet --Hypertension; moderate control Current Visit: Yes Status: Chronic Resume home antihypertensives and As needed hydralazine --Obesity; BMI 33.5; Current Visit: Yes Status: Chronic Patient advised weight reduction, dietary modification Exercise as tolerated when medically stable --Ongoing tobacco use; Current Visit: Yes Status: Chronic Smoking cessation counseled Nicotine patch as needed --DVT prophylaxis; Current Visit: Yes Status: Acute Heparin Closely monitor patient and adjust management as needed Plan of care reviewed with the patient and her nurse Follow cardiology evaluation recommendations
--- NOTE | 2020-12-20 09:52 | Electrocardiograph Report ---
[facility] Test Date: 2020-12-19 Test Time: 23:48:11 Pat Name: SAMANTHA LANG Department: Room: A468 1 Gender: F Scrub Woman: MARK : 1970 Requested By: ABIGAIL ALVAREZ Order Number: [id number] Reading MD: Obie Benavidez Measurements Intervals [place] Rate: 56 P: 75 ME: 165 QRS: 53 QRSD: 93 T: 107 QT: 461 QTc: 446 Interpretive Statements Sinus bradycardia Anteroseptal infarct, old Repol abnrm suggests ischemia, lateral leads No previous ECG available for comparison Electronically Signed On 12-20-2020 9:51:36 EDT by Obie Benavidez
--- NOTE | 2020-12-20 09:56 | Electrocardiograph Report ---
[facility] Test Date: 2020-12-20 Test Time: 08:06:02 Pat Name: SAMANTHA LANG Department: Room: A468 1 Gender: F Woolen Tester: CLT : 1970 Requested By: ABIGAIL ALVAREZ Order Number: [id number] Reading MD: Obie Benavidez Measurements Intervals [place] Rate: 56 P: 70 CA: 158 QRS: 55 QRSD: 95 T: 108 QT: 474 QTc: 457 Interpretive Statements Sinus bradycardia Probable left atrial enlargement Probable anteroseptal infarct, recent Abnormal T, consider ischemia, lateral leads Borderline ST elevation, inferior leads Compared to ECG 12/19/2020 23:48:11 no significant change noted. Electronically Signed On 12-20-2020 9:56:08 EDT by Obie Benavidez
[2020-12-20] MEDS ORDERED: ASPIRIN EC 81 MG TAB PO SCH (10:00)
[2020-12-20] MEDS ORDERED: SODIUM CHLORIDE 0.9% 500 ML 500 ML IV SCH (11:00)
[2020-12-20] MEDS: CLOPIDOGREL 75 MG TAB PO SCH (11:28)
[2020-12-20] MEDS: FUROSEMIDE 20 MG TAB PO SCH (11:28)
[2020-12-20] MEDS: LISINOPRIL 20 MG TAB PO SCH (11:28)
[2020-12-20] MEDS: RANOLAZINE ER 500 MG TAB 12HR PO SCH ×2 (11:28→22:49)
[2020-12-20] MEDS: GABAPENTIN 300 MG CAP PO SCH (11:32)
--- NOTE | 2020-12-20 11:44 | Consultation ---
History of Present Illness Consult date: 12/20/20 Requesting physician: ABIGAIL ALVAREZ Consult reason: chest pain History of present illness: Pt is a 49 y.o. female with a past medical hx of CAD s/p CABG x3 (11/05/2019), s/p multiple PCIs (most recently Cfx on 09/14/2019 - on ASA/Plavix), chronic anemia, carotid artery stenosis, PAF (on Eliquis), chronic HFpEF, HTN, HLD, PAD, and tobacco abuse. Pt was found to have multi-vessel disease on [facility] 11/05/2019 requiring transfer to [place] for CABG x 3. Patient presents with a complaint of chest which she states has been occurring almost daily for 2-3 months. She reports that it is a tightness around her chest that radiates to her back, shoulders, jaw, and upper extremities. The pain occurs at rest or with exertion. She rates the pain as a 10/10 and states that the pain is relieved with nitroglycerin. She reports that she also becomes diaphoretic, nauseous, and has SOB when the pain starts. Pt denies vomiting, palpitations, or edema. She also reports that she went to [facility] in the last 2-3 weeks for these complaints where she had an abnormal stress test and was scheduled for a cath. However, she states that the procedure kept getting postponed for 4 days and she left AMA. Stress 11/28/2020- large severe reversible anterolateral perfusion defect [facility] 11/05/2019 - left main distal 20-30%; LAD ostial 90%, mid stent patent, distal patent, large caliber, small diagonal; Cfx ostial 90%, prox and mid stent patent; OM1 ostial 90%, OM2 and OM3 patent; RCA prox, mid stent restenosis 80%, distal patent; PDA, PLV patent; normal LV fxn. Echo 11/12/2019 - EF 50-55%; grade II diastolic dysfxn; abn basal inferoseptal segment; trace MR; trace AI; trivial pericardial effusion. Past History Past Medical History: atrial fib, CAD, heart failure, hypertension, hyperlipi demia Past Surgical History: cholecystectomy, CABG Social history: smoking Family history: CAD, cancer, diabetes, hypertension, stroke Medications and Allergies Allergies Allergy/AdvReac Type Severity Reaction Status Date / Time No Known Allergies Allergy Verified 12/14/19 11:01 Home Medications Medication Instructions Recorded Confirmed Last Taken Type Gabapentin 300 mg PO DAILY 12/17/19 03/08/20 03/07/20 History 300 mg Metoprolol Tartrate 50 mg PO TID 12/17/19 03/08/20 03/07/20 History 50 mg Spironolactone [Aldactone] 1 tab PO DAILY 12/17/19 03/08/20 03/07/20 History 1 tab Aspirin EC [Halfprin EC] 81 mg PO QDAY #100 tablet. 12/18/19 03/08/20 03/07/20 Rx 81 mg AtorvaSTATin [Lipitor] 40 mg PO QHS #30 tablet 12/18/19 03/08/20 03/07/20 Rx 40 mg Clopidogrel [Plavix] 75 mg PO DAILY 03/08/20 03/08/20 03/07/20 History 75 mg Furosemide [Lasix] 20 mg PO QDAY 03/08/20 03/08/20 03/07/20 History 20 mg ISOSORBIDE MONOnitrate [Imdur ER] 30 mg PO DAILY 03/08/20 03/08/20 03/07/20 History 30 mg Nitroglycerin [place] [Nitromist] 1 spray SL PRN PRN 03/08/20 03/08/20 03/07/20 History 1 spray lisinopriL [Zestril TAB] 20 mg PO DAILY 03/08/20 03/08/20 03/07/20 History 20 mg ISOSORBIDE MONOnitrate [Imdur ER] 60 mg PO QDAY #90 tab.er.24h 03/09/20 Unknown Rx Ranolazine ER [Ranexa ER] 500 mg PO BID #240 tab.er.12h 03/09/20 Unknown Rx Active Meds: Active Medications Aspirin (Aspirin 325 Mg Tab) 325 mg PO QDAY [facility] Atorvastatin Calcium (Atorvastatin 40 Mg Tab) 40 mg PO QHS [facility] Clopidogrel Bisulfate (Clopidogrel 75 Mg Tab) 75 mg PO DAILY [facility] Last Admin: 12/20/20 11:28 Dose: 75 mg Documented by: Furosemide (Furosemide 20 Mg Tab) 20 mg PO QDAY [facility] Last Admin: 12/20/20 11:28 Dose: 20 mg Documented by: Gabapentin (Gabapentin 300 Mg Cap) 300 mg PO DAILY [facility] Last Admin: 12/20/20 11:32 Dose: 300 mg Documented by: Sodium Chloride (Nacl 0.9% 500 Ml) 500 mls @ 50 mls/hr IV DIRECT [facility] Stop: 12/20/20 20:59 Isosorbide Mononitrate (Isosorbide Mononitrate Er 60 Mg Tab) 60 mg PO QDAY [facility] Last Admin: 12/20/20 11:28 Dose: 60 mg Documented by: Lisinopril (Lisinopril 20 Mg Tab) 20 mg PO DAILY [facility] Last Admin: 12/20/20 11:28 Dose: 20 mg Documented by: Metoprolol Tartrate (Metoprolol Tartrate 50 Mg Tab) 50 mg PO TID [facility] Nitroglycerin (Nitroglycerin 0.4 Mg Tab Subl) 0.4 mg SL .Q5MIN PRN PRN Reason: Chest Pain Last Admin: 12/20/20 07:52 Dose: 0.4 mg Documented by: Ranolazine (Ranolazine Er 500 Mg Tab 12hr) 500 mg PO BID [facility] Last Admin: 12/20/20 11:28 Dose: 500 mg Documented by: Spironolactone (Spironolactone 25 Mg Tab) mg PO DAILY [facility] Review of Systems All systems: negative Constitutional: no weight loss, no weight gain, no fever, no chills Ears, nose, mouth and throat: no ear pain, no decreased hearing, no nose pain, no nasal congestion Cardiovascular: chest pain, shortness of breath, dyspnea on exertion, no orthopnea, no palpitations, no rapid/irregular heart beat, no edema, no syncope Respiratory: shortness of breath, dyspnea on exertion, no cough Gastrointestinal: nausea, no abdominal pain, no vomiting, no diarrhea, no constipation Genitourinary Female: no pelvic pain, no flank pain, no dysuria, no urinary frequency Musculoskeletal: shooting arm pain, muscle cramps, no neck stiffness, no neck pain Integumentary: no rash, no pruritis, no redness, no sores, no wounds Neurological: no head injury, no transient paralysis, no paralysis, no weakness, no parathesias, no numbness, no tingling, no seizures, no syncope Psychiatric: no anxiety Endocrine: no cold intolerance, no heat intolerance, no excessive thirst Hematologic/Lymphatic: no easy bruising, no easy bleeding Allergic/Immunologic: no urticaria Physical Examination Last Vital Signs Temp 98.0 F 12/20/20 09:38 Pulse 52 L 12/20/20 09:38 Resp 18 12/20/20 09:38 BP 130/51 12/20/20 09:38 Pulse Ox 97 12/20/20 09:38 General appearance: no acute distress HEENT: Positive: PERRL, Normocephaly Neck: Negative: JVD/HJR Cardiac: Positive: Reg Rate and Rhythm, S1/S2 Lungs: Positive: Normal Exam, clear to auscultation, Normal Breath Sounds Neuro: Positive: Grossly Intact Abdomen: Positive: Unremarkable, Soft, Active Bowel Sounds Skin: Positive: Clear Musculoskeletal: No Pain Extremities: Present: normal. Absent: edema Results 12/19/20 23:52 12/19/20 23:52 Cardiac Enzymes 12/19/20 Range/Units 23:52 AST 14 (5-40) units/L CBC 12/19/20 Range/Units 23:52 WBC 7.1 (4.5-11.0) K/mm3 RBC 4.04 (3.65-5.03) M/mm3 Hgb 14.0 (10.1-14.3) gm/dl Hct 39.8 (30.3-42.9) % Plt Count 204 (140-440) K/mm3 Lymph # (Auto) 2.2 (1.2-5.4) K/mm3 [place] # (Auto) 0.3 (0.0-0.8) K/mm3 Eos # (Auto) 0.2 (0.0-0.4) K/mm3 Baso # (Auto) 0.0 (0.0-0.1) K/mm3 Comprehensive Metabolic Panel 12/19/20 Range/Units 23:52 Sodium 139 (137-145) mmol/L Potassium 4.5 (3.6-5.0) mmol/L Chloride 100.6 (98-107) mmol/L Carbon Dioxide 24 (22-30) mmol/L BUN 16 (7-17) mg/dL Creatinine 0.9 (0.6-1.2) mg/dL Glucose 121 H (65-100) mg/dL Calcium 8.9 (8.4-10.2) mg/dL AST 14 (5-40) units/L ALT 12 (7-56) units/L Alkaline Phosphatase 149 H (35-129) units/L Total Protein 6.7 (6.3-8.2) g/dL Albumin 4.5 (3.9-5) g/dL - Imaging and Cardiology EKG: report reviewed, image reviewed - EKG Interpretation EKG: WNL, sinus rhythm EKG shows: sinus rhythm EKG interpretations - Telemetry EKG Rhythm: Sinus Rhythm - EKG Sinus rhythms and dysrhythmias: sinus rhythm Assessment and Plan Unstable Angina * Patient has pmhx of CAD s/p CABG x3 (11/05/2019), s/p multiple PCIs (most recently Cfx on 09/14/2019 - on ASA/Plavix) * Patient was shown to have abnormal stress test (11/28/2020) with a large severe anterolateral defect at [facility] and was scheduled for cath but left AMA * Patients troponins were negative x3 with no ST elevation * Schedule for Cath in the AM. NPO after midnight CAD s/p CABG x3 (11/05/2019), s/p multiple PCIs * Continue patient home medication regimen of Imdur 60mg PO QD, Ranolazine 500mg PO BID, aspirin 325mg PO QD, Plavix 75mg PO QD Chronic HFpEF * Patient has an EF 55-75% * Continue home medications of lasix 20mg PO QD and metoprolol 50mg PO BID HTN * Optimize antihypertensive regimen. * Continue home medication regimen lisinopril 20mg PO DVT Prophylaxis * Start SQ Heparin Cath in AM and NPO after midnight. Patient seen in conjuction with Dr. Benavidez who agrees with plan. We will continue to follow - Patient Problems (1) Acute chest pain Current Visit: Yes Status: Acute (2) CAD (coronary artery disease) Current Visit: Yes Status: Chronic Qualifiers: (3) CHF (congestive heart failure) Current Visit: No Status: Chronic Qualifiers: Heart failure type: systolic Heart failure chronicity: acute Qualified Code(s): I50.21 - Acute systolic (congestive) heart failure (4) PETER (dyspnea on exertion) Current Visit: Yes Status: Acute (5) DVT prophylaxis Current Visit: Yes Status: Acute
[2020-12-20] MEDS ORDERED: METOPROLOL TARTRATE PO SCH (14:00)
[2020-12-20] MEDS: METOPROLOL TARTRATE 50 MG TAB PO SCH ×2 (15:51→22:49)
[2020-12-20] MEDS: HEPARIN 5,000 UNIT/1 ML VIAL SUB-Q SCH (22:49)
[2020-12-21 04:57] LABS: Basophils % (Auto) 0.8 % (0.0-1.8); Eosinophils # (Auto) 0.2 K/mm3 (0.0-0.4); Eosinophils % (Auto) 3.6 % (0.0-4.3); Hematocrit 39.4 % (30.3-42.9); Hemoglobin 13.7 gm/dl (10.1-14.3); Lymphocytes # (Auto) 1.5 K/mm3 (1.2-5.4); Lymphocytes % (Auto) 33.6 % (13.4-35.0); Mean Corpuscular HGB Conc 35 % (30-34); Mean Corpuscular Volume 99 fl (79-97); Monocytes # (Auto) 0.3 K/mm3 (0.0-0.8); Monocytes % (Auto) 6.8 % (0.0-7.3); Platelet Count 178 K/mm3 (140-440); Red Blood Count 3.99 M/mm3 (3.65-5.03)
[2020-12-21 05:06] LABS: INR 0.93 (0.87-1.13)
[2020-12-21 05:12] LABS: BUN/Creatinine Ratio 22; Blood Urea Nitrogen 20 mg/dL (7-17); Calcium 8.7 mg/dL (8.4-10.2); Hemolysis Index 64
[2020-12-21] MEDS: ASPIRIN 325 MG TAB PO SCH ×2 (06:10→09:00)
[2020-12-21] MEDS ORDERED: MORPHINE 2 MG/1 ML INJ IV NR (08:00)
--- NOTE | 2020-12-21 08:13 | Progress Note ---
Assessment and Plan Assessment and plan: Patient is scheduled for left heart catheterization today N.p.o. status --Acute chest pain/unstable angina Current Visit: Yes Status: Acute Serial cardiac enzyme and serial EKGs Resume cardiac medications Cardiology consulted Possible left heart catheterization tomorrow N.p.o. from midnight --History of CAD status post CABG Current Visit: Yes Status: Chronic Resume home cardiac medications Dual antiplatelets therapy aspirin and Plavix Beta-blockers, ranolazine ,nitrates and statin --Chronic congestive heart failure Current Visit: Yes Status: Chronic With preserved left ventricular function Continue diuretics, beta-blockers, input output monitoring Fluid restriction, low-sodium diet --Hypertension; moderate control Current Visit: Yes Status: Chronic Resume home antihypertensives and As needed hydralazine --Obesity; BMI 33.5; Current Visit: Yes Status: Chronic Patient advised weight reduction, dietary modification Exercise as tolerated when medically stable --Ongoing tobacco use; Current Visit: Yes Status: Chronic Smoking cessation counseled Nicotine patch as needed --DVT prophylaxis; Current Visit: Yes Status: Acute Heparin Closely monitor patient and adjust management as needed Plan of care reviewed with the patient and her nurse Follow cardiology evaluation recommendations 50-year-old female patient with significant past medical history of coronary artery disease status post CABG Was admitted through emergency room with chest pain with multiple risk factors, cardiology evaluated, scheduled for Left heart cath today 12/21/2020; left heart catheter today, follow cardiology recommendations Hospitalist Physical - Constitutional Vitals: Temp Pulse Resp BP Pulse Ox 98.0 F 65 28 H 191/75 97 12/21/20 03:48 12/21/20 07:31 12/21/20 07:31 12/21/20 07:31 12/21/20 07:31 General appearance: Present: no acute distress, well-nourished, obese HEART Score - HEART Score EKG: Non-specific Age: 45-65 Risk factors: > 3 risk factors or hx of atherosclerotic disease Troponin: Troponin T < 0.010 ng/mL (0.00-0.029) 12/20/20 05:57 Troponin: < normal limit - Critical Actions Critical Actions: 4-6 pts:12-16.6% risk of adverse cardiac event. Should be admitted Results - Labs CBC & Chem 7: 12/21/20 03:57 12/21/20 03:57 Labs: Laboratory Last Values WBC 4.4 K/mm3 (4.5-11.0) L 12/21/20 03:57 RBC 3.99 M/mm3 (3.65-5.03) 12/21/20 03:57 Hgb 13.7 gm/dl (10.1-14.3) 12/21/20 03:57 Hct 39.4 % (30.3-42.9) 12/21/20 03:57 MCV 99 fl (79-97) H 12/21/20 03:57 MCH 35 pg (28-32) H 12/21/20 03:57 MCHC 35 % (30-34) H 12/21/20 03:57 RDW 13.0 % (13.2-15.2) L 12/21/20 03:57 Plt Count 178 K/mm3 (140-440) 12/21/20 03:57 Lymph % (Auto) 33.6 % (13.4-35.0) 12/21/20 03:57 [place] % (Auto) 6.8 % (0.0-7.3) 12/21/20 03:57 Eos % (Auto) 3.6 % (0.0-4.3) 12/21/20 03:57 Baso % (Auto) 0.8 % (0.0-1.8) 12/21/20 03:57 Lymph # (Auto) 1.5 K/mm3 (1.2-5.4) 12/21/20 03:57 [place] # (Auto) 0.3 K/mm3 (0.0-0.8) 12/21/20 03:57 Eos # (Auto) 0.2 K/mm3 (0.0-0.4) 12/21/20 03:57 Baso # (Auto) 0.0 K/mm3 (0.0-0.1) 12/21/20 03:57 Seg Neutrophils % 55.2 % (40.0-70.0) 12/21/20 03:57 Seg Neutrophils # 2.4 K/mm3 (1.8-7.7) 12/21/20 03:57 PT 13.0 Sec. (12.2-14.9) 12/21/20 03:57 INR 0.93 (0.87-1.13) 12/21/20 03:57 Sodium 140 mmol/L (137-145) 12/21/20 03:57 Potassium 4.8 mmol/L (3.6-5.0) 12/21/20 03:57 Chloride 107.0 mmol/L (98-107) 12/21/20 03:57 Carbon Dioxide 25 mmol/L (22-30) 12/21/20 03:57 Anion Gap 13 mmol/L 12/21/20 03:57 BUN 20 mg/dL (7-17) H 12/21/20 03:57 Creatinine 0.9 mg/dL (0.6-1.2) 12/21/20 03:57 Estimated GFR > 60 ml/min 12/21/20 03:57 BUN/Creatinine Ratio 22 % 12/21/20 03:57 Glucose 89 mg/dL (65-100) 12/21/20 03:57 Calcium 8.7 mg/dL (8.4-10.2) 12/21/20 03:57 Total Bilirubin < 0.20 mg/dL (0.1-1.2) 12/19/20 23:52 AST 14 units/L (5-40) 12/19/20 23:52 ALT 12 units/L (7-56) 12/19/20 23:52 Alkaline Phosphatase 149 units/L (35-129) H 12/19/20 23:52 Troponin T < 0.010 ng/mL (0.00-0.029) 12/20/20 05:57 Total Protein 6.7 g/dL (6.3-8.2) 12/19/20 23:52 Albumin 4.5 g/dL (3.9-5) 12/19/20 23:52 Albumin/Globulin Ratio 2.0 % 12/19/20 23:52 [place]/IV: Voiding Method Toilet Active Medications - Current Medications Current Medications: Generic Name Dose Route Start Last Admin Trade Name Freq PRN Reason Stop Dose Admin Aspirin 325 mg 12/21/20 06:00 12/21/20 06:10 Aspirin 325 Mg Tab PO Not Given QDAY LUIS EDUARDO Atorvastatin Calcium 40 mg 12/20/20 22:00 12/20/20 22:49 Atorvastatin 40 Mg Tab PO 40 mg QHS LUIS EDUARDO Administration Clopidogrel Bisulfate 75 mg 12/20/20 10:00 12/20/20 11:28 Clopidogrel 75 Mg Tab PO 75 mg DAILY [facility] Administration Furosemide 20 mg 12/20/20 10:00 12/20/20 11:28 Furosemide 20 Mg Tab PO 20 mg QDAY [facility] Administration Gabapentin 300 mg 12/20/20 10:00 12/20/20 11:32 Gabapentin 300 Mg Cap PO 300 mg DAILY [facility] Administration Heparin Sodium (Porcine) 5,000 unit 12/20/20 22:00 12/20/20 22:49 Heparin 5,000 Unit/1 Ml Vial SUB-Q 5,000 unit Q12HR [facility] Administration Nitroglycerin/Dextrose 50 mg in 250 mls @ 3 mls/hr 12/21/20 09:00 Tridil Drip 50mg/250ml IV TITR [facility] Protocol 10 MCG/MIN Isosorbide Mononitrate 60 mg 12/20/20 10:00 12/20/20 11:28 Isosorbide Mononitrate Er 60 Mg Tab PO 60 mg QDAY [facility] Administration Lisinopril 20 mg 12/20/20 10:00 12/20/20 11:28 Lisinopril 20 Mg Tab PO 20 mg DAILY [facility] Administration Metoprolol Tartrate 50 mg 12/20/20 14:00 12/20/20 22:49 Metoprolol Tartrate 50 Mg Tab PO 50 mg TID [facility] Administration Morphine Sulfate 2 mg 12/21/20 08:00 Morphine 2 Mg/1 Ml Inj IV 12/21/20 10:00 ONCE NR Nitroglycerin 0.4 mg 12/20/20 07:40 12/20/20 07:52 Nitroglycerin 0.4 Mg Tab Subl SL 0.4 mg .Q5MIN PRN Administration Chest Pain Ranolazine 500 mg 12/20/20 10:00 12/20/20 22:49 Ranolazine Er 500 Mg Tab 12hr PO 500 mg BID [facility] Administration Spironolactone 25 mg 12/21/20 10:00 Spironolactone 25 Mg Tab PO DAILY [facility]
[2020-12-21] MEDS ORDERED: NITROGLYCERIN DRIP 50 MG/250 ML BOTTLE IV SCH (09:00)
[2020-12-21] MEDS: CLOPIDOGREL 75 MG TAB PO SCH (09:00)
[2020-12-21] MEDS ORDERED: SODIUM CHLORIDE 0.9% 500 ML 500 ML ONE (09:00)
[2020-12-21] MEDS ORDERED: HEPARIN 10,000 UNITS/10 ML VIAL ONE (09:04)
[2020-12-21] MEDS ORDERED: HEPARIN/NS 5000 UNIT/500ML 1,000 ML IR ONE (09:04)
[2020-12-21] MEDS ORDERED: VERAPAMIL 5 MG/2 ML INJ ONE (09:04)
[2020-12-21] MEDS ORDERED: LIDOCAINE (2%) 20 MG/1 ML VIAL 20 ML MDV INFILTRATI ONE (09:04)
[2020-12-21] MEDS: MIDAZOLAM 2 MG/2 ML INJ ONE ×3 (09:32→09:41)
[2020-12-21] MEDS: fentaNYL 100 MCG/2 ML INJ ONE ×3 (09:32→09:40)
[2020-12-21] MEDS ORDERED: SPIRONOLACTONE 25 MG TAB PO SCH (10:00)
[2020-12-21] MEDS: HEPARIN 5,000 UNIT/1 ML VIAL SUB-Q SCH (10:00)
--- NOTE | 2020-12-21 10:12 | Progress Note ---
Assessment and Plan Unstable Angina * Patient has pmhx of CAD s/p CABG x3 (11/05/2019), s/p multiple PCIs (most recently Cfx on 09/14/2019 - on ASA/Plavix) * Patient was shown to have abnormal stress test (11/28/2020) with a large severe anterolateral defect at [facility] and was scheduled for cath but left AMA * Patients troponins were negative x3 with no ST elevation * LHC 12/21/2020 through right groin were shows global nonobstructive coronary artery disease, EF 45%, bypass grafts patent x3, site inspected tegarderm inplace, no bleeding or hematoma noted * Patient to can be discharged on medical therapy. metoprolol 100mg BID, asprin 81mg QD, Plavix 75mg QD, Atorvastatin 40mg QHS,lisinopril 20mg PO CAD s/p CABG x3 (11/05/2019), s/p multiple PCIs * Continue patient home medication regimen of Imdur 60mg PO QD, Ranolazine 500mg PO BID Chronic HFrEF * Patient has an EF 45% * Continue home medications of lasix 20mg PO QD and spironolactone 25mg PO QD From cardiac standpoint patient is stable and is safe for discharge. Patient should follow up with Dr. Guardado, [facility], within 1-2weeks of discharge. Phone number [phone] Patient seen in conjunction with Dr. Benavidez who agrees with plan. - Patient Problems (1) Acute chest pain Current Visit: Yes Status: Acute (2) CAD (coronary artery disease) Current Visit: Yes Status: Chronic Qualifiers: (3) CHF (congestive heart failure) Current Visit: No Status: Chronic Qualifiers: Heart failure type: systolic Heart failure chronicity: acute Qualified Code(s): I50.21 - Acute systolic (congestive) heart failure (4) PETER (dyspnea on exertion) Current Visit: Yes Status: Acute (5) DVT prophylaxis Current Visit: Yes Status: Acute Subjective Date of service: 12/21/20 Principal diagnosis: Unstable Angina Interval history: Patient in [employer] Sinus 80s-100s overnight with no events on tele Objective Last Vital Signs Temp 98.1 F 12/21/20 10:34 Pulse 65 12/21/20 11:15 Resp 21 12/21/20 11:15 BP 113/74 12/21/20 11:15 Pulse Ox 96 12/21/20 11:15 - Physical Examination General: No Apparent Distress HEENT: Positive: PERRL, Normocephaly Neck: Negative: JVD/HJR Cardiac: Positive: Reg Rate and Rhythm Lungs: Positive: Normal Breath Sounds Neuro: Positive: Grossly Intact Abdomen: Positive: Unremarkable, Soft, Active Bowel Sounds Skin: Positive: Clear Musculoskeletal: No Pain Extremities: Present: normal. Absent: edema - Labs and Meds Coagulation 12/21/20 Range/Units 03:57 PT 13.0 (12.2-14.9) Sec. INR 0.93 (0.87-1.13) CBC 12/21/20 Range/Units 03:57 WBC 4.4 L (4.5-11.0) K/mm3 RBC 3.99 (3.65-5.03) M/mm3 Hgb 13.7 (10.1-14.3) gm/dl Hct 39.4 (30.3-42.9) % Plt Count 178 (140-440) K/mm3 Lymph # (Auto) 1.5 (1.2-5.4) K/mm3 [place] # (Auto) 0.3 (0.0-0.8) K/mm3 Eos # (Auto) 0.2 (0.0-0.4) K/mm3 Baso # (Auto) 0.0 (0.0-0.1) K/mm3 Comprehensive Metabolic Panel 12/21/20 Range/Units 03:57 Sodium 140 (137-145) mmol/L Potassium 4.8 (3.6-5.0) mmol/L Chloride 107.0 (98-107) mmol/L Carbon Dioxide 25 (22-30) mmol/L BUN 20 H (7-17) mg/dL Creatinine 0.9 (0.6-1.2) mg/dL Glucose 89 (65-100) mg/dL Calcium 8.7 (8.4-10.2) mg/dL - Imaging and Cardiology EKG: report reviewed, image reviewed - Telemetry EKG Rhythm: Sinus Rhythm - EKG Sinus rhythms and dysrhythmias: sinus rhythm
[2020-12-21] MEDS: FUROSEMIDE 20 MG TAB PO SCH (10:28)
[2020-12-21] MEDS: LISINOPRIL 20 MG TAB PO SCH (10:29)
--- NOTE | 2020-12-21 10:43 | Electrocardiograph Report ---
[facility] Test Date: 2020-12-20 Test Time: 11:49:48 Pat Name: SAMANTHA LANG Department: Room: A468 1 Gender: F Network Support Specialist: LUIS : 1970 Requested By: VANNA CASTILLO Order Number: [id number] Reading MD: Obie Benavidez Measurements Intervals [place] Rate: 50 P: 67 MO: 163 QRS: 61 QRSD: 91 T: 111 QT: 480 QTc: 438 Interpretive Statements Sinus rhythm Probable left atrial enlargement Anteroseptal infarct, old Repol abnrm suggests ischemia, lateral leads Compared to ECG 12/20/2020 08:06:02 No significant change noted. Electronically Signed On 12-21-2020 10:42:40 EDT by Obie Benavidez
--- NOTE | 2020-12-21 10:57 | Electrocardiograph Report ---
[facility] Test Date: 2020-12-21 Test Time: 08:13:11 Pat Name: SAMANTHA LANG Department: Room: A468 1 Gender: F [employer] Farmworker: LUIS : 1970 Requested By: OBIE COOK Order Number: [id number] Reading MD: Obie Cook Measurements Intervals [place] Rate: 88 P: 65 NV: 163 QRS: 53 QRSD: 95 T: 113 QT: 368 QTc: 446 Interpretive Statements Sinus rhythm Right atrial enlargement Probable LVH with secondary repol abnrm Anterior Q waves, possibly due to LVH Compared to ECG 12/20/2020 11:49:48 Rate is faster,otherwise no significant change from previous EKG. Electronically Signed On 12-21-2020 10:57:01 EDT by Obie Cook
[2020-12-21] MEDS ORDERED: METOPROLOL TARTRATE 50 MG TAB PO SCH ×2 (11:00→22:00)
[2020-12-21] MEDS ORDERED: ASPIRIN 81 MG TAB CHEW PO SCH (11:00)
--- NOTE | 2020-12-21 11:00 | Cardiac Catherization Report ---
DATE OF SERVICE: 12/21/2020 CARDIAC CATHETERIZATION REPORT INDICATION: The patient is a 50-year-old female with past medical history of multiple PCIs with history of stenting of the circumflex in September of 2019, subsequently required bypass surgery with left internal mammary to the LAD, radial graft to the marginal branch and vein graft to the PDA on 11/05/2019. The patient is having recurrent chest pain and was evaluated at [facility] on 11/28/2020, which showed large severe reversible anterolateral perfusion defect. Catheterization done on 11/05/2019 showed left main distal 20-30%. Ostial LAD showed 90%, mid stent is patent. A small diagonal branch. Circumflex artery showed ostial 90% proximal and mid stent patent. RCA showed mid stent restenosis 80%. The patient has a history of atrial fibrillation, hypertension and heart failure. Because of persistent chest pain and abnormal stress nuclear imaging performed 1 month ago, the patient was recommended cardiac catheterization for further evaluation and she is agreeable with the plan. DESCRIPTION OF PROCEDURE: The patient was brought to the catheterization laboratory. She was evaluated for moderate sedation and was felt to be an appropriate candidate for moderate sedation. The patient prior to coming to the catheterization laboratory, was noted to have markedly elevated systolic and diastolic high blood pressure and was started on IV nitroglycerin. The patient was prepared in standard fashion. The patient was felt to be an appropriate candidate for moderate sedation and was given IV Versed and fentanyl starting at 9:32 a.m. Local anesthesia was given in the right groin and subsequently under fluoroscopy and using 5-Nauruan micropuncture needle, right femoral artery access was obtained. A 5-Nauruan sheath was introduced. A 5-Nauruan multipurpose catheter was used to obtain the angiograms of the right coronary artery, angiograms of the graft to the obtuse marginal branch and angiograms of the graft to the PDA. Subsequently, JL3.5 catheter was used to obtain the angiograms of the left coronary artery and mammary catheter was used to obtain the angiograms of the internal mammary to the LAD. After obtaining the angiograms, catheter was removed. Blood pressure is under control on IV nitroglycerin. Right groin sheath will be removed and manual pressure will be applied. The patient tolerated the procedure well. The patient was monitored throughout the procedure with pulse oximetry, EKG monitoring and hemodynamic monitoring. The patient's moderate sedation monitoring started at 9:32 a.m. and ended at 9:52 a.m. No untoward complications were noted. The patient at the end of the procedure is communicating normally, moving all the extremities. Also, breathing normally with normal oxygen saturations. The patient was transferred to the room in stable condition. The patient will be monitored for any development of hematoma. Blood pressure will be monitored. Following findings were noted. HEMODYNAMICS: Opening aortic pressure 209/89. Left ventricular pressure 209/40. No gradient across the aortic valve. Estimated ejection fraction 40-45%. Left ventriculogram was performed in VERGARA projection using hand injection. Only limited amount of dye is injected. Mild diffuse hypokinesis noted. Ejection fraction was felt to be around 40-45% with significantly elevated end diastolic pressure of 40 mmHg. Mitral regurgitation could not be evaluated. Right coronary artery dominant vessel arises from the right coronary cusp. There is a mid stent, which appears to have significant ISR and RCA is occluded in the distal part with diffuse disease throughout. A saphenous vein graft to the PDA is widely patent, filling the PDA and LV branches and these branches are without significant disease. Left coronary artery arises normally from left coronary cusp, left main without significant disease. The ostial LAD has 60-70% smooth lesion. There is a competitive flow in the distal LAD. Left internal mammary graft to the LAD is widely patent and distal LAD is well seen and without significant disease. Circumflex artery shows a large stent in the obtuse marginal branch, which is 100% occluded. Branch in the AV groove without significant disease. Radial graft to the obtuse marginal branch is widely patent and obtuse marginal branch distally without any significant disease. COLLATERALS: None. FINAL IMPRESSION: 1. Mild hypokinesis of the LV with markedly elevated end diastolic pressure of 40 mmHg. 2. Severe triple vessel disease; however, patent left internal mammary graft to the distal LAD, patent radial graft to the obtuse marginal branch and widely patent saphenous vein graft to the PDA. Considering the above angiographic pictures, the patient will be continued on aggressive risk factor modification and medical therapy. The patient's main problem may be markedly elevated end diastolic pressure from uncontrolled hypertension. Would recommend continued aggressive medical therapy and control of blood pressure. Procedure was uncomplicated. TID: [id number] RECEIPT: [id number] ANDRIY/REESE LAUREN
[2020-12-21 13:26] VITALS: BP 148/86
--- NOTE | 2020-12-21 14:50 | Discharge Summary ---
Providers - Providers Date of Admission: 12/20/20 07:53 Date of discharge: 12/21/20 Attending physician: CHRISTO BROOKS 12/20/20 07:40 Consult to Physician [CONS] Urgent Comment: Consulting Provider: MICHELLE PATEL Physician Instructions: Reason For Exam: acute chest pain Primary care physician: MICHELLE PATEL Hospitalization Reason for admission: Chest pain Condition: Good Pertinent studies: Chest x-ray; no acute abnormality noted Procedures: Left heart catheterization; Mild hypokinesis triple-vessel disease patent grafts aggressive risk factor modification with medical therapy optimal control of hypertension Hospital course: Chief complaint: Chest pain History of present illness: 50 y.o. female with a past medical hx of CAD s/p CABG x3 (11/05/2019), s/p multiple PCIs (most recently Cfx on 09/14/2019 - on ASA/Plavix), chronic anemia, carotid artery stenosis, PAF (on Eliquis), chronic HFpEF, HTN, HLD, PAD, and tobacco abuse. Pt was found to have multi-vessel disease on [facility] 11/05/2019 requiring transfer to [place] for CABG x 3. 12/18/2019>Patient was noted to have antral ulcer,cardiac status is stable. Patient claims compliance with dual antiplatelets aspirin and Plavix. She also takes nitroglycerin. She reports that she was recently admitted to [facility] for acute coronary syndrome and chest pain. She reports that she had an echocardiogram and stress test. She reports that based off of the results of the stress test, cardiac catheterization was recommended. However, she reports that she waited 3 days for the cardiac catheterization, and never got it. Today she comes to the emergency room with the complaints of persistent intermittent exertional left-sided chest pain that radiates to the back, with shortness of breath and diaphoresis. This is similar to her prior anginal s ymptoms. Aggravated by exertion and relieved by rest Initial work-up in the emergency room consistent with negative cardiac enzymes x2 Discharge diagnosis --Acute chest pain/unstable angina Current Visit: Yes Status: Acute Serial cardiac enzyme and serial EKGs Resume cardiac medications Cardiology consulted Possible left heart catheterization tomorrow N.p.o. from midnight --History of CAD status post CABG Current Visit: Yes Status: Chronic Resume home cardiac medications Dual antiplatelets therapy aspirin and Plavix Beta-blockers, ranolazine ,nitrates and statin --Chronic congestive heart failure Current Visit: Yes Status: Chronic With preserved left ventricular function Continue diuretics, beta-blockers, input output monitoring Fluid restriction, low-sodium diet --Hypertension; moderate control Current Visit: Yes Status: Chronic Resume home antihypertensives and As needed hydralazine --Obesity; BMI 33.5; Current Visit: Yes Status: Chronic Patient advised weight reduction, dietary modification Exercise as tolerated when medically stable --Ongoing tobacco use; Current Visit: Yes Status: Chronic Smoking cessation counseled Nicotine patch as needed Stable at discharge Disposition: DC-01 TO HOME OR SELFCARE Final Discharge Diagnosis (Prints w/discharge instructions): Unstable angina. Coronary artery disease s/p CABG. Chronic CHF with preserved LVEF. Hypertension. Obesity BMI 33.5. Ongoing tobacco use Time spent for discharge: 35 min Core Measure Documentation - Palliative Care Palliative Care/ Comfort Measures: Not Applicable - Core Measures Any of the following diagnoses?: none Exam - Constitutional Vitals: Temp Pulse Resp BP Pulse Ox 98.1 F 59 L 20 148/86 98 12/21/20 10:34 12/21/20 13:25 12/21/20 13:25 12/21/20 13:25 12/21/20 13:25 General appearance: Present: mild distress, well-nourished, obese - EENT Eyes: Present: PERRL, EOM intact - Neck Neck: Present: supple, normal ROM - Respiratory Respiratory effort: normal Respiratory: bilateral: diminished, negative: rales, rhonchi, wheezing - Cardiovascular Rhythm: regular Heart Sounds: Present: S1 & S2 - Extremities Extremities: no ischemia, No edema - Abdominal General gastrointestinal: Present: soft, non-tender, non-distended, normal bowel sounds - Integumentary Integumentary: Present: clear, warm - Musculoskeletal Musculoskeletal: strength equal bilaterally - Psychiatric Psychiatric: appropriate mood/affect, cooperative - Neurologic Neurologic: moves all extremities Plan Activity: advance as tolerated Diet: other (Cardiac diet) Special Instructions: smoking cessation Additional Instructions: Strongly advised to comply with medications, diet follow-up visits. Advised smoking cessation, nicotine patch as needed. Advised exercise as tolerated, dietary modification and weight reduction when you are medically stable if you have worsening symptoms contact MD or go to emergency room as needed Follow up with: MICHELLE PATEL MD [Primary Care Provider] - 7 Days Prescriptions: Nitroglycerin [Nitrostat] 0.4 mg SL .Q5MIN PRN #30 tablet PRN Reason: Chest Pain
[2020-12-21] MEDS: GABAPENTIN 300 MG CAP PO SCH (16:16)
[2020-12-21] MEDS: RANOLAZINE ER 500 MG TAB 12HR PO SCH (16:16)
== END 2020-12-21 19:33 | disposition home or self-care (01) ==
LOC: ED 23:23 → 4A 12-20 07:53
PROVIDERS: ADMIT Internal Medicine; ATTEND Internal Medicine
DX: R07.89 Other chest pain (principal); I25.10 Atherosclerotic heart disease of native coronary artery without angina pectoris; I13.2 Hypertensive heart and chronic kidney disease with heart failure and with stage 5 chronic kidney disease, or end stage renal disease; I50.22 Chronic systolic (congestive) heart failure; N18.6 End stage renal disease; D63.1 Anemia in chronic kidney disease; I48.91 Unspecified atrial fibrillation; I73.9 Peripheral vascular disease, unspecified; E66.9 Obesity, unspecified; E78.5 Hyperlipidemia, unspecified; F17.210 Nicotine dependence, cigarettes, uncomplicated; R06.00 Dyspnea, unspecified; Z95.1 Presence of aortocoronary bypass graft; Z95.5 Presence of coronary angioplasty implant and graft; Z68.33 Body mass index [BMI] 33.0-33.9, adult; Z99.2 Dependence on renal dialysis; Z79.82 Long term (current) use of aspirin; Z79.899 Other long term (current) drug therapy; Z98.890 Other specified postprocedural states
CPT/HCPCS: 36415; 71046; 80048; 80053; 82962; 84484; 85025; 85610; 93005; 93459; 96365; 96366; 96372; 96375; 96376; 99291; 99406; A9270; C1894; G0378; J1644; J2250; J2270; J2405; J3010; J7040; 96374; Q9967

== ENCOUNTER 2021-04-18 16:56 | Emergency (ER) | payer BC ==
[2021-04-18] MEDS ORDERED: NITROGLYCERIN 0.4 MG TAB SUBL SL ONE (17:39)
--- NOTE | 2021-04-18 17:52 | Emergency Department Report ---
ED Chest Pain HPI - General Chief Complaint: Chest Pain Stated Complaint: CHEST PAIN SOB Time Seen by Provider: 04/18/21 17:27 Source: patient, old records reviewed Mode of arrival: Ambulatory Limitations: No Limitations - History of Present Illness Initial Comments: 51 y.o. female with a past medical hx of CAD s/p CABG x3 (11/05/2019), s/p multiple PCIs (most recently Cfx on 09/14/2019 - on ASA/Plavix), chronic anemia, carotid artery stenosis, PAD, chf, HTN, HLD, PAD, and tobacco abuse. Pt was found to have multi-vessel disease on [facility] 11/05/2019 requiring transfer to [place] for CABG x 3. Patient was shown to have abnormal stress test (11/28/2020) with a large severe anterolateral defect at [facility] and was scheduled for cath but left AMA. Patient was last admitted here in December and [facility] 12/21/2020 through right groin were shows global nonobstructive coronary artery disease, EF 45%, bypass grafts patent x3. Patient presents to the hospital complaining of worsening of her chronic angina type chest pain. She states she has "11 stents)." For the last 6 months patient has experienced malaise had a chest tightness with associated shortness of breath. Occasionally she has nausea and feels hot. She also has radiation to either her jaw, arm, or back. The symptoms occur at rest and with exertion without specific aggravating or alleviating factors. Approximately 10 days ago she ran out of her nitroglycerin sublingual tabs. On now she takes 1 to several tabs per day for her chronic anginal chest pain. She typically takes 2 to 3 tablets at a time and it takes approximately 30 minutes for her pain to subside. Now that she does not have any nitroglycerin her chest pain lasted for approximately 2 hours prior to subsiding. Denies history of PE/DVT Patient states she is compliant with her other medication including aspirin, Plavix, Lipitor, Ranexa, Imdur and other medications on record Atomic Physics Professor: Dr. Townsend - Related Data Home Medications Medication Instructions Recorded Confirmed Last Taken Gabapentin 300 mg PO DAILY 12/17/19 12/21/20 03/07/20 300 mg Metoprolol Tartrate 50 mg PO TID 12/17/19 12/21/20 03/07/20 50 mg Spironolactone [Aldactone] 1 tab PO DAILY 12/17/19 12/21/20 03/07/20 1 tab Clopidogrel [Plavix] 75 mg PO DAILY 03/08/20 12/21/20 03/07/20 75 mg Furosemide [Lasix TAB] 20 mg PO QDAY 03/08/20 12/21/20 03/07/20 20 mg lisinopriL [Zestril TAB] 20 mg PO DAILY 03/08/20 12/21/20 03/07/20 20 mg Previous Rx's Medication Instructions Recorded Last Taken Type Aspirin EC [Halfprin EC] 81 mg PO QDAY #100 tablet. 12/18/19 03/07/20 Rx 81 mg AtorvaSTATin [Lipitor] 40 mg PO QHS #30 tablet 12/18/19 03/07/20 Rx 40 mg ISOSORBIDE MONOnitrate [Imdur ER] 60 mg PO QDAY #90 tab.er.24h 03/09/20 Unknown Rx Ranolazine ER [Ranexa ER] 500 mg PO BID #240 tab.er.12h 03/09/20 Unknown Rx Nitroglycerin [Nitrostat] 0.4 mg SL .Q5MIN PRN #30 tablet 04/18/21 Unknown Rx Allergies Allergy/AdvReac Type Severity Reaction Status Date / Time No Known Allergies Allergy Verified 04/18/21 17:06 Heart Score - HEART Score History: Moderately suspicious EKG: Non-specific Age: 45-65 Risk factors: > 3 risk factors or hx of atherosclerotic disease Troponin: < normal limit HEART Score: 5 - EKG Read Time Time EKG Completed: 17:06 EKG Read Time: 17:11 ED Review of Systems ROS: Stated complaint: CHEST PAIN SOB Other details as noted in HPI Comment: All other systems reviewed and negative ED Past Medical Hx - Past Medical History Hx Hypertension: Yes Hx Heart Attack/AMI: Yes (3) Hx Congestive Heart Failure: No Hx Diabetes: No Hx Liver Disease: No Hx Renal Disease: No Hx Seizures: No Hx Asthma: Yes Hx COPD: No Hx HIV: No Additional medical history: high cholesterol. colitis. anemia - Surgical History Hx Coronary Stent: Yes (2006,2008,,2013,2019) Hx Cholecystectomy: Yes Additional Surgical History: back surgery. CABG 11/09/19. hysterectomy - Social History Smoking Status: Current Every Day Smoker - Medications Home Medications: Home Medications Medication Instructions Recorded Confirmed Last Taken Type Gabapentin 300 mg PO DAILY 12/17/19 12/21/20 03/07/20 History 300 mg Metoprolol Tartrate 50 mg PO TID 12/17/19 12/21/20 03/07/20 History 50 mg Spironolactone [Aldactone] 1 tab PO DAILY 12/17/19 12/21/20 03/07/20 History 1 tab Aspirin EC [Halfprin EC] 81 mg PO QDAY #100 tablet. 12/18/19 12/21/20 03/07/20 Rx 81 mg AtorvaSTATin [Lipitor] 40 mg PO QHS #30 tablet 12/18/19 12/21/20 03/07/20 Rx 40 mg Clopidogrel [Plavix] 75 mg PO DAILY 03/08/20 12/21/20 03/07/20 History 75 mg Furosemide [Lasix TAB] 20 mg PO QDAY 03/08/20 12/21/20 03/07/20 History 20 mg lisinopriL [Zestril TAB] 20 mg PO DAILY 03/08/20 12/21/20 03/07/20 History 20 mg ISOSORBIDE MONOnitrate [Imdur ER] 60 mg PO QDAY #90 tab.er.24h 03/09/20 12/21/20 Unknown Rx Ranolazine ER [Ranexa ER] 500 mg PO BID #240 tab.er.12h 03/09/20 12/21/20 Unknown Rx Nitroglycerin [Nitrostat] 0.4 mg SL .Q5MIN PRN #30 tablet 04/18/21 Unknown Rx ED Physical Exam - General Limitations: No Limitations - Other Other exam information: General: No acute distress Head: Atraumatic Eyes: normal appearance ENT: Moist mucous membranes Neck: Normal appearance, no midline tenderness Chest: Clear to auscultation bilaterally, mild anterior chest wall tenderness CV: Regular rate and rhythm Abdomen: Soft, normal bowel sounds, nontender, nondistended, no rebound or guarding Back: Normal inspection Extremity: Normal inspection, full range of motion Neuro: Alert O x 3, no facial asymmetry, speech clear, no gross motor sensory deficit Psych: Appropriate behavior Skin: No rash ED Course Vital Signs 04/18/21 04/18/21 04/18/21 17:10 17:47 17:59 Temperature 98.5 F Pulse Rate 66 Respiratory 18 Rate Blood Pressure Blood Pressure 142/62 [Left] O2 Sat by Pulse 98 95 98 Oximetry 04/18/21 04/18/21 04/18/21 18:00 18:14 18:16 Temperature Pulse Rate 62 62 Respiratory 18 Rate Blood Pressure 162/72 Blood Pressure [Left] O2 Sat by Pulse 97 94 Oximetry 04/18/21 04/18/21 18:30 19:12 Temperature 98.5 F Pulse Rate 62 67 Respiratory 16 14 Rate Blood Pressure 150/65 Blood Pressure 165/69 [Left] O2 Sat by Pulse 94 97 Oximetry - Reevaluation(s) Reevaluation #1: 04/18/21 19:38 Patient received 1 nitroglycerin with improvement in pain. - Consultations Consultation #1: 04/18/21 19:[address] Westbrook on-call gas welding equipment mechanic for [facility]. If second troponin negative recommend discharged with refill and nitroglycerin and outpatient follow-up HEATHER score - Heather Score Age > 65: (0) No Aspirin use within the Past 7 Days: (1) Yes 3 or more CAD Risk Factors: (1) Yes 2 or more Angina events in past 24 hrs: (1) Yes Known CAD with more than 50% Stenosis: (1) Yes Elevated Cardiac Markers: (0) No ST Deviation Greater than 0.5mm: (0) No HEATHER Score: 4 ED Medical Decision Making - Lab Data Result diagrams: 04/18/21 17:46 04/18/21 17:46 Lab Results 04/18/21 04/18/21 04/18/21 Range/Units 17:46 17:46 20:01 WBC 6.2 (4.5-11.0) K/mm3 RBC 3.92 (3.65-5.03) M/mm3 Hgb 13.1 (10.1-14.3) gm/dl Hct 38.1 (30.3-42.9) % MCV 97 (79-97) fl MCH 34 H (28-32) pg MCHC 34 (30-34) % RDW 13.1 L (13.2-15.2) % Plt Count 200 (140-440) K/mm3 Lymph % (Auto) 27.1 (13.4-35.0) % [place] % (Auto) 5.3 (0.0-7.3) % Eos % (Auto) 2.2 (0.0-4.3) % Baso % (Auto) 0.5 (0.0-1.8) % Lymph # (Auto) 1.7 (1.2-5.4) K/mm3 [place] # (Auto) 0.3 (0.0-0.8) K/mm3 Eos # (Auto) 0.1 (0.0-0.4) K/mm3 Baso # (Auto) 0.0 (0.0-0.1) K/mm3 Seg Neutrophils % 64.9 (40.0-70.0) % Seg Neutrophils # 4.0 (1.8-7.7) K/mm3 Sodium 140 (137-145) mmol/L Potassium 4.7 (3.6-5.0) mmol/L Chloride 104.4 (98-107) mmol/L Carbon Dioxide 22 (22-30) mmol/L Anion Gap 18 mmol/L BUN 16 (7-17) mg/dL Creatinine 0.8 (0.6-1.2) mg/dL Estimated GFR > 60 ml/min BUN/Creatinine Ratio 20 % Glucose 93 (65-100) mg/dL Calcium 9.1 (8.4-10.2) mg/dL Troponin T < 0.010 < 0.010 (0.00-0.029) ng/mL - EKG Data -: EKG Interpreted by Nh EKG shows normal: sinus rhythm, intervals (QTC 436), QRS complexes (Cures duration), ST-T waves (Lateral T wave inversions) Rate: normal (65) - EKG Data When compared to previous EKG there are: no significant change - Radiology Data Radiology results: report reviewed CHEST 2 VIEWS INDICATION / CLINICAL INFORMATION: Chest Pain. COMPARISON: 12/20/2020 FINDINGS: SUPPORT DEVICES: None. HEART / MEDIASTINUM: Stable previous median sternotomy and CABG. LUNGS / PLEURA: No significant pulmonary or pleural abnormality. No pneumothorax. ADDITIONAL FINDINGS: No significant additional findings. IMPRESSION: 1. No acute findings. - Medical Decision Making 51-year-old female presents to the hospital complaining of chronic angina and being out of her nitroglycerin. Patient by nitroglycerin here in the ED with improvement in pain. Patient just had a cardiac cath in December. EKG unchanged. Troponin negative x2 and pain controlled. case discussed with gas welding equipment mechanic public relations officer who recommends a refill in her medication and outpatient follow-up. - Differential Diagnosis CHF, hypertensive emergency, PE, obesity, NE, unstable angina Critical Care Time: No Critical care attestation.: If time is entered above; I have spent that time in minutes in the direct care of this critically ill patient, excluding procedure time. ED Disposition Clinical Impression: Chronic stable angina Disposition: HOME / SELF CARE / HOMELESS Is pt being admited?: No Condition: Stable Instructions: Angina, [id number] Additional Instructions: Take the medication as prescribed. Follow-up with your doctor or doctor/clinic provided. Return if symptoms worsen as indicated by your discharge instructions. Prescriptions: Nitroglycerin [Nitrostat] 0.4 mg SL .Q5MIN PRN #30 tablet PRN Reason: Chest Pain Referrals: MICHELLE PATEL MD [Staff Physician] - 2-3 Days Time of Disposition: 21:01
[2021-04-18 18:14] LABS: Basophils % (Auto) 0.5 % (0.0-1.8); Eosinophils # (Auto) 0.1 K/mm3 (0.0-0.4); Eosinophils % (Auto) 2.2 % (0.0-4.3); Hematocrit 38.1 % (30.3-42.9); Hemoglobin 13.1 gm/dl (10.1-14.3); Lymphocytes # (Auto) 1.7 K/mm3 (1.2-5.4); Lymphocytes % (Auto) 27.1 % (13.4-35.0); Mean Corpuscular HGB Conc 34 % (30-34); Mean Corpuscular Volume 97 fl (79-97); Monocytes # (Auto) 0.3 K/mm3 (0.0-0.8); Monocytes % (Auto) 5.3 % (0.0-7.3); Platelet Count 200 K/mm3 (140-440); Red Blood Count 3.92 M/mm3 (3.65-5.03); Red Cell Distribution Width 13.1 % (13.2-15.2)
--- NOTE | 2021-04-18 18:19 | XRay Report ---
CHEST 2 VIEWS INDICATION / CLINICAL INFORMATION: Chest Pain. COMPARISON: 12/20/2020 FINDINGS: SUPPORT DEVICES: None. HEART / MEDIASTINUM: Stable previous median sternotomy and CABG. LUNGS / PLEURA: No significant pulmonary or pleural abnormality. No pneumothorax. ADDITIONAL FINDINGS: No significant additional findings. IMPRESSION: 1. No acute findings. Signer Name: Georgi Serna MD Signed: 04/18/2021 6:14 PM Workstation Name: [id number]
[2021-04-18 18:32] LABS: BUN/Creatinine Ratio 20; Blood Urea Nitrogen 16 mg/dL (7-17); Calcium 9.1 mg/dL (8.4-10.2); Hemolysis Index 7
[2021-04-18 21:05] VITALS: BP 130/44
--- NOTE | 2021-04-19 11:58 | Electrocardiograph Report ---
[facility] Test Date: 2021-04-18 Test Time: 17:06:43 Pat Name: SAMANTHA LANG Department: Room: Gender: F [employer]: SASHA : 1970 Requested By: ROQUE ESCALONA Order Number: [id number] Reading MD: Ifeanyi Lucas Measurements Intervals [place] Rate: 65 P: 74 [place]: 151 QRS: 48 QRSD: 90 T: 115 QT: 436 QTc: 455 Interpretive Statements Sinus rhythm Left atrial enlargement Possible old anteroseptal infarct Nonspecific ST and T wave change Compared to ECG 12/21/2020 08:13:11 No significant change Electronically Signed On 04-19-2021 11:57:40 EST by Ifeanyi Lucas
== END 2021-04-18 21:16 | disposition home or self-care (01) ==
LOC: ED 16:56
DX: I20.9 Angina pectoris, unspecified (principal); I10 Essential (primary) hypertension; Z86.73 Personal history of transient ischemic attack (TIA), and cerebral infarction without residual deficits; F17.200 Nicotine dependence, unspecified, uncomplicated; D64.9 Anemia, unspecified; E78.00 Pure hypercholesterolemia, unspecified; Z90.49 Acquired absence of other specified parts of digestive tract
CPT/HCPCS: 36415; 71046; 80048; 84484; 85025; 93005

== ENCOUNTER 2021-06-16 12:43 | Emergency (ER) | payer BC ==
[2021-06-16] MEDS ORDERED: KETOROLAC 30 MG/1 ML INJ IM ONE (13:55)
--- NOTE | 2021-06-16 13:56 | Emergency Department Report ---
ED Back Pain/Injury HPI - General Chief Complaint: Back Pain/Injury Stated Complaint: BACK PAIN Time Seen by Provider: 06/16/21 13:44 Source: patient Limitations: No Limitations - History of Present Illness Initial Comments: 51-year-old female with a past medical history of coronary artery disease status post triple bypass surgery, hypertension, and hyperlipidemia and tobacco use presents to the ER today with complaints of right lower back pain. Patient states that she woke up with the pain 2 days ago. She describes as a throbbing pain which has been constant and sometimes radiates into her right abdomen. She states that the pain is worse with any movement. She denies any associated bowel or bladder incontinence, lower extremity weakness, numbness or tingling, fever or chills. She denies any known injury. She denies any strenuous activity. She does admit that she had lumbar surgery about 5 to 6 years ago. She states that she thinks she had a discectomy at a level of L4/L5. She states that since the surgery she had pain to her lower back intermittently but nothing severe that she required to be on chronic pain medications. She states that the pain that she has had in the past 2 days is worse than the pain that she has been having since the surgery. She denies any nausea, vomiting, UTI symptoms, and denies any history of aneurysms. She is status post hysterectomy and cholecystectomy. MD Complaint: back pain -: days(s) (2) - Related Data Home Medications Medication Instructions Recorded Confirmed Last Taken Gabapentin 300 mg PO DAILY 12/17/19 12/21/20 03/07/20 300 mg Metoprolol Tartrate 50 mg PO TID 12/17/19 12/21/20 03/07/20 50 mg Spironolactone [Aldactone] 1 tab PO DAILY 12/17/19 12/21/20 03/07/20 1 tab Clopidogrel [Plavix] 75 mg PO DAILY 03/08/20 12/21/20 03/07/20 75 mg Furosemide [Lasix TAB] 20 mg PO QDAY 03/08/20 12/21/20 03/07/20 20 mg lisinopriL [Zestril TAB] 20 mg PO DAILY 03/08/20 12/21/20 03/07/20 20 mg Previous Rx's Medication Instructions Recorded Last Taken Type Aspirin EC [Halfprin EC] 81 mg PO QDAY #100 tablet. 12/18/19 03/07/20 Rx 81 mg AtorvaSTATin [Lipitor] 40 mg PO QHS #30 tablet 12/18/19 03/07/20 Rx 40 mg ISOSORBIDE MONOnitrate [Imdur ER] 60 mg PO QDAY #90 tab.er.24h 03/09/20 Unknown Rx Ranolazine ER [Ranexa ER] 500 mg PO BID #240 tab.er.12h 03/09/20 Unknown Rx Nitroglycerin [Nitrostat] 0.4 mg SL .Q5MIN PRN #30 tablet 04/18/21 Unknown Rx Metaxalone [Skelaxin] 800 mg PO TID PRN #30 tablet 06/16/21 Unknown Rx methylPREDNISolone [Medrol 4MG 4 mg PO DAILY #1 pack 06/16/21 Unknown Rx DOSEPAK (21 tabs)] traMADoL [Ultram] 50 mg PO Q6HR PRN #12 tablet 06/16/21 Unknown Rx Allergies Allergy/AdvReac Type Severity Reaction Status Date / Time No Known Allergies Allergy Verified 04/18/21 17:06 ED Review of Systems ROS: Stated complaint: BACK PAIN Other details as noted in HPI Comment: All other systems reviewed and negative Constitutional: denies: chills, fever Eyes: denies: eye pain, eye discharge, vision change ENT: denies: ear pain, throat pain Respiratory: denies: cough, shortness of breath, SOB with exertion, SOB at rest, wheezing Cardiovascular: denies: chest pain, palpitations Gastrointestinal: denies: abdominal pain, nausea, vomiting, diarrhea, cons tipation, hematemesis, melena, hematochezia Genitourinary: denies: urgency, dysuria, frequency, hematuria, discharge, abnormal menses, dyspareunia Musculoskeletal: back pain. denies: joint swelling, arthralgia Skin: as per HPI. denies: change in color, change in hair/nails, pruritus Neurological: denies: headache, weakness, numbness, paresthesias, confusion, abnormal gait ED Past Medical Hx - Past Medical History Hx Hypertension: Yes Hx Heart Attack/AMI: Yes (3) Hx Congestive Heart Failure: No Hx Diabetes: No Hx Liver Disease: No Hx Renal Disease: No Hx Seizures: No Hx Asthma: Yes Hx COPD: No Hx HIV: No Additional medical history: high cholesterol. colitis. anemia - Surgical History Hx Coronary Stent: Yes (2006,2008,,2013,2019) Hx Cholecystectomy: Yes Additional Surgical History: back surgery. CABG 11/09/19. hysterectomy - Social History Smoking Status: Current Every Day Smoker - Medications Home Medications: Home Medications Medication Instructions Recorded Confirmed Last Taken Type Gabapentin 300 mg PO DAILY 12/17/19 12/21/20 03/07/20 History 300 mg Metoprolol Tartrate 50 mg PO TID 12/17/19 12/21/20 03/07/20 History 50 mg Spironolactone [Aldactone] 1 tab PO DAILY 12/17/19 12/21/20 03/07/20 History 1 tab Aspirin EC [Halfprin EC] 81 mg PO QDAY #100 tablet. 12/18/19 12/21/20 03/07/20 Rx 81 mg AtorvaSTATin [Lipitor] 40 mg PO QHS #30 tablet 12/18/19 12/21/20 03/07/20 Rx 40 mg Clopidogrel [Plavix] 75 mg PO DAILY 03/08/20 12/21/20 03/07/20 History 75 mg Furosemide [Lasix TAB] 20 mg PO QDAY 03/08/20 12/21/20 03/07/20 History 20 mg lisinopriL [Zestril TAB] 20 mg PO DAILY 03/08/20 12/21/20 03/07/20 History 20 mg ISOSORBIDE MONOnitrate [Imdur ER] 60 mg PO QDAY #90 tab.er.24h 03/09/20 12/21/20 Unknown Rx Ranolazine ER [Ranexa ER] 500 mg PO BID #240 tab.er.12h 03/09/20 12/21/20 Unknown Rx Nitroglycerin [Nitrostat] 0.4 mg SL .Q5MIN PRN #30 tablet 04/18/21 Unknown Rx Metaxalone [Skelaxin] 800 mg PO TID PRN #30 tablet 06/16/21 Unknown Rx methylPREDNISolone [Medrol 4MG 4 mg PO DAILY #1 pack 06/16/21 Unknown Rx DOSEPAK (21 tabs)] traMADoL [Ultram] 50 mg PO Q6HR PRN #12 tablet 06/16/21 Unknown Rx ED Physical Exam - General Limitations: No Limitations General appearance: alert, in no apparent distress - Head Head exam: Present: atraumatic, normocephalic, normal inspection - Eye Eye exam: Present: normal appearance, PERRL, EOMI Pupils: Present: normal accommodation - ENT ENT exam: Present: normal exam, mucous membranes moist - Neck Neck exam: Present: normal inspection, full ROM. Absent: meningismus - Respiratory Respiratory exam: Present: normal lung sounds bilaterally. Absent: respiratory distress, wheezes, rales, rhonchi - Cardiovascular Cardiovascular Exam: Present: regular rate, normal rhythm, normal heart sounds - GI/Abdominal GI/Abdominal exam: Present: soft. Absent: distended, tenderness, guarding, rebound - Back Exam Back exam: Present: normal inspection, paraspinal tenderness (right lower lumbar area). Absent: full ROM (flex and ext of lumbar spine reduced due to pain ), CVA tenderness (R), CVA tenderness (L), vertebral tenderness, rash noted - Neurological Exam Neurological exam: Present: alert, oriented X3, CN II-XII intact, normal gait, reflexes normal. Absent: motor sensory deficit - Psychiatric Psychiatric exam: Present: normal affect, normal mood - Skin Skin exam: Present: intact ED Course Vital Signs 06/16/21 06/16/21 06/16/21 13:01 14:42 16:08 Temperature 98 F 99.1 F 97.3 F L Pulse Rate 56 L 60 70 Respiratory 20 18 16 Rate Blood Pressure 157/67 Blood Pressure 170/72 189/74 [Right] O2 Sat by Pulse 99 94 98 Oximetry ED Medical Decision Making - Lab Data Result diagrams: 06/16/21 14:19 06/16/21 14:19 - Radiology Data Radiology results: report reviewed Patient: SAMANTHA LANG MR#: [id number] : 1970 Acct:[id number] Age/Sex: 51 / F ADM Date: 06/16/21 Loc: ED Attending Dr: Ordering Physician: JONE PEREZ Date of Service: 06/16/21 Procedure(s): XR spine lumbosacral 2-3V Accession Number(s): [id number] cc: JONE PEREZ Fluoro Time In Minutes: LUMBAR SPINE 3 VIEWS INDICATION / CLINICAL INFORMATION: low backpain. COMPARISON: None available. FINDINGS: VERTEBRAE: No fracture. 8 mm anterolisthesis L4 on L5 DISC SPACES:Mild discogenic degenerative disease L2-4, and L5-S1 FACET JOINTS:Moderate facet degenerative disease L4 S1 ADDITIONAL FINDINGS: Moderate vascular calcifications nonaneurysmal aorta. IMPRESSION: 1. Degenerative changes of lumbar spine with grade 1 anterolisthesis of L4 on L5. No fracture Signer Name: Josh Daniel MD Signed: 06/16/2021 2:23 PM Workstation Name: [id number] Transcribed By: TL Dictated By: Josh Daniel MD Electronically Authenticated By: Josh Daniel MD Signed Date/Time: 06/16/211422 DD/ 21 TD/TT: - Medical Decision Making The patient presented with right low back pain. The patient is resting comfortably and, is alert, talkative, interactive and in no distress. T The patient is neurologically intact and is ambulatory in the ED. The patient has no fever, no bowel or bladder incontinence, no saddle anesthesia and is otherwise alert and well-appearing. She has a soft nontender abdomen and she denies any abdominal gladis. Labs reviewed -CBC unremarkable. CMP does shows some elevation to alk phos, but after reviewing patient's previous labs, this is chronic. Urinalysis does not suggest a UTI. X-ray of the lumbar spine shows degenerative disc disease, and a non aneurysm apparent aorta, but no other significant abnormalities. Her history, physical examination and diagnostic testing does not suggest the presence of acute spinal epidural abscess, acute epidural bleed, cauda equina syndrome, abdominal/thoracic aortic aneurysm, aortic dissection UTI, kidney stone, or other acute process requiring further testing, treatment or consultation in the emergency department. The vital signs have been stable. Discussed all lab results with patient. Discussed imaging results with patient. Discussed suspected diagnosis with patient. Recommend that she follows up with her PCP orthospine for outpatient MRI. In the meantime she will be given medications to help with pain. Patient expressed understanding of all instructions and agree with plan. Patient stable at time of discharge. The patient condition is stable and appropriate for discharge. The patient will pursue further outpatient evaluation with the primary care physician or other designated or consulting physician as indicated in the discharge instructions. Critical care attestation.: If time is entered above; I have spent that time in minutes in the direct care of this critically ill patient, excluding procedure time. ED Disposition Clinical Impression: DDD (degenerative disc disease), lumbosacral, Low back pain Disposition: 01 HOME / SELF CARE / HOMELESS Is pt being admited?: No Does the pt Need Aspirin: No Condition: Stable Instructions: Acute Back Pain, Adult, Degenerative Disk Disease Additional Instructions: I recommend that you take the Skelaxin which is a muscle relaxer, the Medrol Dosepak, and the Ultram as prescribed to help with any pain. I do recommend that you follow-up with orthospine specialist listed on discharge instruction or even your primary care doctor for further evaluation of your back including outpatient MRI. Return to the ER if at any point your symptoms worsens or changes in any way. Prescriptions: methylPREDNISolone [Medrol 4MG DOSEPAK (21 tabs)] 4 mg PO DAILY #1 pack Metaxalone [Skelaxin] 800 mg PO TID PRN #30 tablet PRN Reason: Spasms traMADoL [Ultram] 50 mg PO Q6HR PRN #12 tablet PRN Reason: Pain , Severe (7-10) Referrals: PRIMARY CARE, [Primary Care Provider] - 3-5 Days [facility] [Provider Group] - 3-5 Days (Orthospine specialist Local Address: [address] [place] [address] [phone]) Forms: Work/School Release Form(ED) Time of Disposition: 16:01
--- NOTE | 2021-06-16 14:28 | XRay Report ---
LUMBAR SPINE 3 VIEWS INDICATION / CLINICAL INFORMATION: low backpain. COMPARISON: None available. FINDINGS: VERTEBRAE: No fracture. 8 mm anterolisthesis L4 on L5 DISC SPACES:Mild discogenic degenerative disease L2-4, and L5-S1 FACET JOINTS:Moderate facet degenerative disease L4 S1 ADDITIONAL FINDINGS: Moderate vascular calcifications nonaneurysmal aorta. IMPRESSION: 1. Degenerative changes of lumbar spine with grade 1 anterolisthesis of L4 on L5. No fracture Signer Name: Josh Daniel MD Signed: 06/16/2021 2:23 PM Workstation Name: [id number]
[2021-06-16 14:54] LABS: Basophils # (Auto) 0.1 K/mm3 (0.0-0.1); Eosinophils # (Auto) 0.1 K/mm3 (0.0-0.4); Hematocrit 39.8 % (30.3-42.9); Hemoglobin 13.1 gm/dl (10.1-14.3); Lymphocytes # (Auto) 1.5 K/mm3 (1.2-5.4); Lymphocytes % (Auto) 26.6 % (13.4-35.0); Mean Corpuscular HGB Conc 33 % (30-34); Mean Corpuscular Volume 96 fl (79-97); Monocytes # (Auto) 0.3 K/mm3 (0.0-0.8); Monocytes % (Auto) 5.9 % (0.0-7.3); Platelet Count 277 K/mm3 (140-440); Red Blood Count 4.15 M/mm3 (3.65-5.03); Red Cell Distribution Width 13.5 % (13.2-15.2)
[2021-06-16 15:19] LABS: Alanine Aminotransferase 14 units/L (7-56); BUN/Creatinine Ratio 13; Blood Urea Nitrogen 10 mg/dL (7-17); Calcium 9.4 mg/dL (8.4-10.2); Hemolysis Index 2
[2021-06-16 15:36] LABS: Bilirubin,Urine NEG (Negative); Blood,Urine SM (Negative); Color,Urine Yellow (Yellow); Protein,Urine <15 mg/dL mg/dL (Negative); Urobilinogen,Urine < 2.0 mg/dL (<2.0)
[2021-06-16 16:11] VITALS: BP 189/74
== END 2021-06-16 16:14 | disposition home or self-care (01) ==
LOC: ED 12:43
DX: M51.36 Other intervertebral disc degeneration, lumbar region (principal); I10 Essential (primary) hypertension; J45.909 Unspecified asthma, uncomplicated; E78.00 Pure hypercholesterolemia, unspecified; Z90.710 Acquired absence of both cervix and uterus; Z98.890 Other specified postprocedural states; Z79.899 Other long term (current) drug therapy
CPT/HCPCS: 36415; 72100; 80053; 81001; 85025; 96372; 99283; J1885

== ENCOUNTER 2021-09-15 10:43 | Emergency (ER) | payer OTHER ==
[2021-09-15 10:59] VITALS: BP 104/60
[2021-09-15] MEDS ORDERED: ALBUTEROL 2.5 MG/3 ML NEBU IH ONE (11:31)
--- NOTE | 2021-09-15 11:56 | XRay Report ---
CHEST 2 VIEWS INDICATION / CLINICAL INFORMATION: congestion, sob. COMPARISON: 04/18/2021 FINDINGS: SUPPORT DEVICES: None. HEART / MEDIASTINUM: Stable. LUNGS / PLEURA: No significant pulmonary or pleural abnormality. No pneumothorax. ADDITIONAL FINDINGS: No significant additional findings. IMPRESSION: 1. No acute findings. Signer Name: Ten Chavez MD Signed: 09/15/2021 11:52 AM Workstation Name: [id number]
--- NOTE | 2021-09-15 12:12 | Emergency Department Report ---
ED General Adult HPI - General Chief complaint: Upper Respiratory Infection Stated complaint: ACOUGH/ANGINA/BODY PAIN Time Seen by Provider: 09/15/21 11:05 Source: patient Mode of arrival: Ambulatory Limitations: No Limitations - History of Present Illness Initial comments: 51-year-old female emergency department complaining of a few day history of coug h congestion and coryza with yellowish to green mucus production off and on for Sandip progressively worsening not responding to her albuterol MDI. She reports no known sick contacts no diarrhea, no rash, no hemoptysis hematemesis hematochezia. - Related Data Home Medications Medication Instructions Recorded Confirmed Last Taken Gabapentin 300 mg PO DAILY 12/17/19 12/21/20 03/07/20 300 mg Metoprolol Tartrate 50 mg PO TID 12/17/19 12/21/20 03/07/20 50 mg Spironolactone [Aldactone] 1 tab PO DAILY 12/17/19 12/21/20 03/07/20 1 tab Clopidogrel [Plavix] 75 mg PO DAILY 03/08/20 12/21/20 03/07/20 75 mg Furosemide [Lasix TAB] 20 mg PO QDAY 03/08/20 12/21/20 03/07/20 20 mg lisinopriL [Zestril TAB] 20 mg PO DAILY 03/08/20 12/21/20 03/07/20 20 mg Previous Rx's Medication Instructions Recorded Last Taken Type Aspirin EC [Halfprin EC] 81 mg PO QDAY #100 tablet. 12/18/19 03/07/20 Rx 81 mg AtorvaSTATin [Lipitor] 40 mg PO QHS #30 tablet 12/18/19 03/07/20 Rx 40 mg ISOSORBIDE MONOnitrate [Imdur ER] 60 mg PO QDAY #90 tab.er.24h 03/09/20 Unknown Rx Ranolazine ER [Ranexa ER] 500 mg PO BID #240 tab.er.12h 03/09/20 Unknown Rx Nitroglycerin [Nitrostat] 0.4 mg SL .Q5MIN PRN #30 tablet 04/18/21 Unknown Rx Metaxalone [Skelaxin] 800 mg PO TID PRN #30 tablet 06/16/21 Unknown Rx methylPREDNISolone [Medrol 4MG 4 mg PO DAILY #1 pack 06/16/21 Unknown Rx DOSEPAK (21 tabs)] traMADoL [Ultram] 50 mg PO Q6HR PRN #12 tablet 06/16/21 Unknown Rx Azithromycin [Zithromax Tri-Jorge A] 500 mg PO DAILY #1 09/15/21 Unknown Rx Benzonatate [Tessalon Perles] 100 mg PO Q8HR #20 cap 09/15/21 Unknown Rx Allergies Allergy/AdvReac Type Severity Reaction Status Date / Time No Known Allergies Allergy Verified 04/18/21 17:06 ED Review of Systems ROS: Stated complaint: ACOUGH/ANGINA/BODY PAIN Other details as noted in HPI Comment: All other systems reviewed and negative ED Past Medical Hx - Past Medical History Previous Medical History?: Yes Hx Hypertension: Yes Hx Heart Attack/AMI: Yes (3) Hx Congestive Heart Failure: No Hx Diabetes: No Hx Liver Disease: No Hx Renal Disease: No Hx Seizures: No Hx Asthma: Yes Hx COPD: No Hx HIV: No Additional medical history: high cholesterol. colitis. anemia - Surgical History Past Surgical History?: Yes Hx Coronary Stent: Yes (2006,2008,,2013,2019) Hx Cholecystectomy: Yes Additional Surgical History: back surgery. CABG 11/09/19. hysterectomy - Social History Smoking Status: Current Every Day Smoker - Medications Home Medications: Home Medications Medication Instructions Recorded Confirmed Last Taken Type Gabapentin 300 mg PO DAILY 12/17/19 12/21/20 03/07/20 History 300 mg Metoprolol Tartrate 50 mg PO TID 12/17/19 12/21/20 03/07/20 History 50 mg Spironolactone [Aldactone] 1 tab PO DAILY 12/17/19 12/21/20 03/07/20 History 1 tab Aspirin EC [Halfprin EC] 81 mg PO QDAY #100 tablet. 12/18/19 12/21/20 03/07/20 Rx 81 mg AtorvaSTATin [Lipitor] 40 mg PO QHS #30 tablet 12/18/19 12/21/20 03/07/20 Rx 40 mg Clopidogrel [Plavix] 75 mg PO DAILY 03/08/20 12/21/20 03/07/20 History 75 mg Furosemide [Lasix TAB] 20 mg PO QDAY 03/08/20 12/21/20 03/07/20 History 20 mg lisinopriL [Zestril TAB] 20 mg PO DAILY 03/08/20 12/21/20 03/07/20 History 20 mg ISOSORBIDE MONOnitrate [Imdur ER] 60 mg PO QDAY #90 tab.er.24h 03/09/20 12/21/20 Unknown Rx Ranolazine ER [Ranexa ER] 500 mg PO BID #240 tab.er.12h 03/09/20 12/21/20 Unkn own Rx Nitroglycerin [Nitrostat] 0.4 mg SL .Q5MIN PRN #30 tablet 04/18/21 Unknown Rx Metaxalone [Skelaxin] 800 mg PO TID PRN #30 tablet 06/16/21 Unknown Rx methylPREDNISolone [Medrol 4MG 4 mg PO DAILY #1 pack 06/16/21 Unknown Rx DOSEPAK (21 tabs)] traMADoL [Ultram] 50 mg PO Q6HR PRN #12 tablet 06/16/21 Unknown Rx Azithromycin [Zithromax Tri-Jorge A] 500 mg PO DAILY #1 09/15/21 Unknown Rx Benzonatate [Tessalon Perles] 100 mg PO Q8HR #20 cap 09/15/21 Unknown Rx ED Physical Exam - General Limitations: No Limitations General appearance: alert, in no apparent distress - Head Head exam: Present: atraumatic, normocephalic - Eye Eye exam: Present: normal appearance, PERRL, EOMI Pupils: Present: normal accommodation - ENT ENT exam: Present: normal exam, mucous membranes moist, TM's normal bilaterally - Neck Neck exam: Present: normal inspection, full ROM - Respiratory Respiratory exam: Present: normal lung sounds bilaterally, rhonchi. Absent: respiratory distress - Cardiovascular Cardiovascular Exam: Present: regular rate, normal rhythm. Absent: systolic murmur, diastolic murmur, rubs, gallop - GI/Abdominal GI/Abdominal exam: Present: soft, normal bowel sounds - Extremities Exam Extremities exam: Present: normal inspection - Back Exam Back exam: Present: normal inspection - Neurological Exam Neurological exam: Present: alert, oriented X3 - Psychiatric Psychiatric exam: Present: normal affect, normal mood - Skin Skin exam: Present: warm, dry, intact, normal color. Absent: rash ED Course Vital Signs 09/15/21 10:58 Temperature 97.4 F L Pulse Rate 57 L Respiratory 16 Rate Blood Pressure 104/60 O2 Sat by Pulse 97 Oximetry ED Medical Decision Making - Radiology Data Radiology results: report reviewed [facility] [address] [place] [address] XRay Report Signed Patient: SAMANTHA LANG MR#: [id number] : 1970 Acct:[id number] Age/Sex: 51 / F ADM Date: 09/15/21 Loc: ED Attending Dr: Ordering Physician: OCTAVIO ERAZO Date of Service: 09/15/21 Procedure(s): XR chest routine 2V Accession Number(s): [id number] cc: OCTAVIO ERAZO Fluoro Time In Minutes: CHEST 2 VIEWS INDICATION / CLINICAL INFORMATION: congestion, sob. COMPARISON: 04/18/2021 FINDINGS: SUPPORT DEVICES: None. HEART / MEDIASTINUM: Stable. LUNGS / PLEURA: No significant pulmonary or pleural abnormality. No pneumothorax. ADDITIONAL FINDINGS: No significant additional findings. IMPRESSION: 1. No acute findings. Signer Name: Ten Chavez MD Signed: 09/15/2021 11:52 AM Workstation Name: [id number] Transcribed By: DB Dictated By: TEN CHAVEZ MD Electronically Authenticated By: TEN CHAVEZ MD Signed Date/Time: 09/15/21 115 DD/ 1151 TD/TT: - Medical Decision Making This patient presents with acute cough, most consistent with bronchitis. Differential diagnosis includes bronchitis, pneumonia, CHF, allergies, asthma, COPD. Presentation not consistent with acute bacterial pneumonia, influenza, asthma, transient airway hyperresponsiveness. Presentation not consistent with chronic causes of cough (including GERD, asthma, postnasal discharge, medication side effect, CHF, lung cancer or mass). Maintain normal saturation with ambulation no development of chest pain or palpitations ambulate Plan: , supportive care, reassess Critical care attestation.: If time is entered above; I have spent that time in minutes in the direct care of this critically ill patient, excluding procedure time. ED Disposition Clinical Impression: Bronchitis, Cough Disposition: HOME / SELF CARE / HOMELESS Is pt being admited?: No Does the pt Need Aspirin: No Condition: Stable Instructions: Cool Mist Vaporizer, Cough, Adult, [id number], Cough, Adult, Chronic Bronchitis (ED) Prescriptions: Benzonatate [Tessalon Perles] 100 mg PO Q8HR #20 cap Azithromycin [Zithromax Tri-Jorge A] 500 mg PO DAILY #1 Referrals: EVA GARCIA MD [Primary Care Provider] - 3-5 Days Forms: Work/School Release Form(ED)
== END 2021-09-15 12:53 | disposition home or self-care (01) ==
LOC: ED 10:43
DX: J40 Bronchitis, not specified as acute or chronic (principal); I10 Essential (primary) hypertension; E78.00 Pure hypercholesterolemia, unspecified; F17.200 Nicotine dependence, unspecified, uncomplicated; Z90.710 Acquired absence of both cervix and uterus; Z79.82 Long term (current) use of aspirin; Z79.899 Other long term (current) drug therapy
CPT/HCPCS: 71046; 99283